=== PATIENT | female | born 1940 | race Caucasian/White ===

== ENCOUNTER 2017-07-28 11:34 | Inpatient (IN) | payer MEDICARE ==
--- NOTE | 2017-07-28 13:33 | RAD ---
HISTORY: Subacute trauma, low back pain COMPARISONS: None TECHNIQUE: Multiple contiguous axial CT scans were obtained of the lumbar spine without intravenous contrast, with coronal and sagittal multiplanar reformations. FINDINGS: SPINAL CANAL: Evaluation of the central canal is limited on CT technique; however, there is no obvious canalicular mass or epidural hemorrhage. ALIGNMENT: The alignment is normal. VERTEBRAL BODIES: There is diffuse osteopenia. Is multilevel anterolateral marginal osteophyte formation. The vertebral bodies are preserved in height. There is a nonspecific fracture through the left sacral ala extending to the SI joint. There is accessory above L1 on the right. JOINTS: There is diffuse facet osteoarthritis. MUSCULATURE: There is fatty atrophy of the inferior extent of the multifidus and erector spinae muscles. INTERVERTEBRAL DISCS: There is diffuse loss of intervertebral disc height throughout the spine. AXIAL IMAGES: T12-L1: There is no osseous neural foraminal narrowing or central canal stenosis. L1-L2: There is vacuum phenomenon consistent with a left lateral recess disc protrusion. There is no osseous neural foraminal area or central canal stenosis. L2-L3: There is no osseous neural foraminal narrowing or central canal stenosis. L3-L4: There is no osseous neural foraminal narrowing or central canal stenosis. L4-L5: There is no osseous neural foraminal narrowing or central canal stenosis. L5-S1: There is no osseous neural foraminal narrowing or central canal stenosis. SOFT TISSUES: There is atherosclerosis of the abdominal aorta OTHER: None IMPRESSION: 1. OSTEOPENIA. 2. DEGENERATIVE DISC DISEASE AND OSTEOARTHRITIS. 3. THERE IS A NONDISPLACED FRACTURE OF THE LEFT SACRAL ALA EXTENDING TO THE SI JOINT.
--- NOTE | 2017-07-28 13:38 | RAD ---
HISTORY: Subacute trauma, pain COMPARISONS: CT of the lumbar spine dated July 28, 2017 TECHNIQUE: Multiple contiguous axial CT images are obtained of the pelvis, with coronal and sagittal multiplanar reconstructions, without intravenous contrast administration. FINDINGS: BONE DENSITY: There is diffuse osteopenia. BONES: There is a nondisplaced fracture of the left sacral ala extending to the SI joint. There is are comminuted fractures of the left parasymphyseal inferior and superior pubic rami . Additionally, on axial image 88, there is a small focus of sclerosis with periosteal reaction noted along the left ischium. JOINTS: There is osteoarthritis of the hips and SI joints bilaterally. MUSCULATURE: There is dystrophic calcification within the left obturator externus muscle and pectineus muscle ALIGNMENT: There is no dislocation. SOFT TISSUES: Unremarkable. OTHER FINDINGS: None. IMPRESSION: 1. OSTEOPENIA. 2. COMMINUTED PARASYMPHYSEAL FRACTURES OF THE LEFT SUPERIOR AND INFERIOR PUBIC RAMI. 3. NONDISPLACED FRACTURE OF THE LEFT SACRAL ALA EXTENDING TO THE SI JOINT. 4. DYSTROPHIC CALCIFICATION NOTED WITHIN THE PELVIC MUSCULATURE WHICH MAY REFLECT THE SEQUELA OF PREVIOUS TRAUMA. 5. THERE IS A SMALL FOCUS OF SCLEROSIS WITH PERIOSTEAL REACTION ALONG THE LEFT ISCHIUM. WHILE THIS MAY REFLECT THE SEQUELA OF REMOTE TRAUMA, AN AGGRESSIVE LESION INCLUDING METASTATIC DISEASE OR PRIMARY OSSEOUS NEOPLASM IS ALSO WITHIN THE DIFFERENTIAL. RECOMMEND ATTENTION ON FOLLOW-UP IMAGING.
[2017-07-28 13:45] LABS: Hematocrit 35 % (35-47); Hemoglobin 11.8 g/dl (12.0-16.0); Mean Corpuscular HGB Conc 33 g/dl (31-36); Mean Corpuscular Hemoglobin 33 pg (27-31); Mean Corpuscular Volume 100 fL (80-97); Mean Platelet Volume 9 um3 (7.4-10.4); Red Blood Count 3.54 10^6/ul (4.0-5.4); Red Cell Distribution Width 16 % (10.5-15); White Blood Count 10.2 10^3/ul (3.5-10.8)
[2017-07-28 14:50] LABS: Albumin 3.2 g/dL (3.2-5.2); BUN/Creatinine Ratio 52.1 (8-20); C Reactive Protein 5.09 mg/L (< 5.00); Calcium 9.3 mg/dL (8.6-10.3); EGFR African American 56.7 (>60); EGFR Non-African American 44.1 (>60); Globulin 2.9 g/dL (2-4); Potassium 4.5 mmol/L (3.5-5.0); Total Bilirubin 0.7 mg/dL (0.2-1.0); Total Protein 6.1 g/dL (6.4-8.9)
[2017-07-28] MEDS ORDERED: NS 0.9% 1000 ML* 1,000 ML IV ONE (14:55)
[2017-07-28] MEDS ORDERED: Ondansetron INJ* 2 MG/ML VIAL IV ONE (14:55)
[2017-07-28] MEDS ORDERED: HYDROmorphone INJ* 1 MG/ML CARPUJECT SYRINGE IV ONE (14:55)
--- NOTE | 2017-07-28 18:49 | ED ---
Luisa Castro Thomas, scribed for Eloy Carroll MD on 07/28/17 at 1240 . Lower Extremity - HPI Summary HPI Summary: The patient is a 77 y/o F presenting to the ED c/o L hip pain s/p a fall that occurred last night as she was getting up to go to the bathroom. She rates her pain 9/10. The pain is aggravated by rotation and palpation. It is alleviated by nothing. The pain radiates down her left leg and up her back. She has not treated the pain with anything [employer]. On 06/21/17, the patient fell and sustained a pelvic fracture and a left shoulder fracture. After this fall, she was put on Percocet for the pain. The patient is from [place], and 10 days ago the patient fell four times in the span of a 24-hour period leading up to leaving for [facility] on an airplane. At the time of the fall 10 days ago, she was still taking Percocet. After her fall 10 days ago, she stopped taking Percocet because she was concerned that it was increasing the likelihood of a fall. However, she started taking Percocet again last night and she fell again. Per her son, over the last five days the patient has become weaker and more dehydrated. She is on a blood thinner. PMHx: A-Fib, peripheral neuropathy. PHx: partial hysterectomy, hand surgery, arm surgery. SHx: former smoker (ages [age]) , occasional alcohol use, no illicit drug use. She is accompanied by her son, Zackery. 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 Mechanism Of Injury: Fall From A Standing Position Onset of Pain: Immediate Onset/Duration: Days - fall yesterday night Severity Currently: Severe Pain Intensity: 9 Pain Scale Used: 0-10 Numeric Timing: Constant Location: Is Discrete @ - L hip Associated Signs And Symptoms: Positive: Weakness, Other - POS: L hip pain, frequent falls in the last two months, weakness, dehydration Aggravating Factor(s): Movement, Other - Rotation Alleviating Factor(s): Nothing Related History: Other - Frequent falls in the last month - Allergies/Home Medications Allergies/Adverse Reactions: Allergies Allergy/AdvReac Type Severity Reaction Status Date / Time Sulfa Antibiotics Allergy Rash Verified 07/28/17 12:02 Home Medications: Home Medications Apixaban* [Eliquis*] 5 mg PO BID 07/28/17 [History Confirmed 07/28/17] Artificial Tear Solution [Soothe Xp/Xtra Protection] 1 drop BOTH EYES BID PRN [History Confirmed 07/28/17] Atorvastatin* [Lipitor*] 10 mg PO DAILY 07/28/17 [History Confirmed 07/28/17] Betamethasone Kailyn 0.1% CM(NF) [Valisone 0.1% CM(NF)] 1 applic TOPICAL TID [History Confirmed 07/28/17] Budesonide [Uceris] 9 mg PO DAILY 07/28/17 [History Confirmed 07/28/17] Calcium Carbonate-Vitamin D [Calcium 500/Vitamin D] 1 tab PO DAILY 07/28/17 [ History Confirmed 07/28/17] Cyclosporine 0.05% OPHTH (NF) [Restasis 0.05% OPHTH] 1 drop BOTH EYES BID [History Confirmed 07/28/17] Digoxin TAB* [Lanoxin TAB*] 0.25 mg PO DAILY 07/28/17 [History Confirmed ] Furosemide TAB* [Lasix TAB*] 20 mg PO DAILY 07/28/17 [History Confirmed 07/28/17 ] Gabapentin TAB(NF) [Neurontin 600 mg TAB(NF)] 600 mg PO TID 07/28/17 [History Confirmed 07/28/17] Immune Globuln 10%-5GM*(PRIVI) [Privigen 10% - 5GM*] 5 grams IV Q3M 07/28/17 [ History Confirmed 07/28/17] Lisinopril TAB* [Prinivil TAB*] 10 mg PO DAILY 07/28/17 [History Confirmed 07/28] Mesalamine (NF) [Lialda (NF)] 2.4 gm PO BID 07/28/17 [History Confirmed 07/28/17 ] Nebivolol (NF) [Bystolic (NF)] 10 mg PO DAILY 07/28/17 [History Confirmed ] Onabotulinimtoxina 100 UNITS* [Botox 100 UNITS*] 100 units INJ Q3M 07/28/17 [ History Confirmed 07/28/17] Spironolactone TAB* [Aldactone TAB*] 25 mg PO DAILY 07/28/17 [History Confirmed 07/28/17] predniSONE TAB* [Deltasone TAB*] 20 mg PO DAILY 07/28/17 [History Confirmed ] traMADol TAB* [Ultram*] 50 - 100 mg PO Q4HR PRN 07/28/17 [History Confirmed ] PMH/Surg Hx/FS Hx/Imm Hx Previously Healthy: No Cardiovascular History: Reports: Hx Atrial Fibrillation Neurological History: Reports: Hx Peripheral Neuropathy - Surgical History Surgery Procedure, Year, and Place: partial hysterectomy, arm and hand surgery Infectious Disease History: No Infectious Disease History: Denies: Traveled Outside the [place] in Last 30 Days - Family History Known Family History: Positive: Hypertension - Social History Alcohol Use: Occasionally Substance Use Type: Reports: None Smoking Status (MU): Former Smoker Review of Systems Positive: Other - POS: dehydration. Negative: Fever Positive: Other - POS: L hip pain Neurological: Other - POS: frequent falls in the last couple months Positive: Weakness All Other Systems Reviewed And Are Negative: Yes Physical Exam Triage Information Reviewed: Yes Vital Signs On Initial Exam: Initial Vitals Temp Pulse Resp BP Pulse Ox 97 F 74 17 93/52 96 07/28/17 11:54 07/28/17 11:54 07/28/17 11:54 07/28/17 11:54 07/28/17 11:54 Vital Signs Reviewed: Yes Appearance: Positive: Well-Appearing, No Pain Distress Skin: Positive: Warm, Skin Color Reflects Adequate Perfusion, Dry Head/Face: Positive: Normal Head/Face Inspection Eyes: Positive: Normal ENT: Positive: Normal ENT inspection Neck: Positive: Supple, Nontender Respiratory/Lung Sounds: Positive: Clear to Auscultation, Breath Sounds Present Cardiovascular: Positive: RRR Abdomen Description: Positive: Nontender, Soft Bowel Sounds: Positive: Present Musculoskeletal: Positive: Normal, Other - She is tender to the left sciatic area and the left lower lumbar area. She is mildly tender to ROM of the left hip. Neurological: Positive: Normal Psychiatric: Positive: Normal, Affect/Mood Appropriate - [place] Coma Scale Coma Scale Total: 15 Diagnostics - Vital Signs Vital Signs Temp Pulse Resp BP Pulse Ox 07/28/17 12:11 98.2 F 78 19 121/75 97 07/28/17 11:54 97 F 74 17 93/52 96 - Laboratory Lab Results: Lab Results 07/28/17 07/28/17 07/28/17 Range/Units 13:34 13:34 13:34 WBC 10.2 (3.5-10.8) 10^3/ul RBC 3.54 L (4.0-5.4) 10^6/ul Hgb 11.8 L (12.0-16.0) g/dl Hct 35 (35-47) % MCV 100 H (80-97) fL MCH 33 H (27-31) pg MCHC 33 (31-36) g/dl RDW 16 H (10.5-15) % Plt Count 191 (150-450) 10^3/ul MPV 9 (7.4-10.4) um3 Neut % (Auto) 95.0 H (38-83) % Lymph % (Auto) 2.0 L (25-47) % [facility] % (Auto) 2.7 (1-9) % Eos % (Auto) 0 (0-6) % Baso % (Auto) 0.3 (0-2) % Absolute Neuts (auto) 9.7 H (1.5-7.7) 10^3/ul Absolute Lymphs (auto) 0.2 L (1.0-4.8) 10^3/ul Absolute Monos (auto) 0.3 (0-0.8) 10^3/ul Absolute Eos (auto) 0 (0-0.6) 10^3/ul Absolute Basos (auto) 0 (0-0.2) 10^3/ul Absolute Nucleated RBC 0.02 10^3/ul Nucleated RBC % 0.2 INR (Anticoag Therapy) 1.22 H (0.89-1.11) Sodium 140 (133-145) mmol/L Potassium 4.5 (3.5-5.0) mmol/L Chloride 112 H (101-111) mmol/L Carbon Dioxide 18 L (22-32) mmol/L Anion Gap 10 (2-11) mmol/L BUN 62 H (6-24) mg/dL Creatinine 1.19 H (0.51-0.95) mg/dL Est GFR ( Amer) 56.7 (>60) Est GFR (Non-Af Amer) 44.1 (>60) BUN/Creatinine Ratio 52.1 H (8-20) Glucose 153 H (70-100) mg/dL Calcium 9.3 (8.6-10.3) mg/dL Total Bilirubin 0.70 (0.2-1.0) mg/dL AST 59 H (13-39) U/L ALT 54 H (7-52) U/L Alkaline Phosphatase 318 H (34-104) U/L C-Reactive Protein 5.09 H (< 5.00) mg/L Total Protein 6.1 L (6.4-8.9) g/dL Albumin 3.2 (3.2-5.2) g/dL Globulin 2.9 (2-4) g/dL Albumin/Globulin Ratio 1.1 (1-3) Result Diagrams: 07/28/17 13:34 07/28/17 13:34 Lab Statement: Any lab studies that have been ordered have been reviewed, and results considered in the medical decision making process. - CT CT L-Spine CT Interpretation: Positive (See Comments) - 1. OSTEOPENIA. 2. DEGENERATIVE DISC DISEASE AND OSTEOARTHRITIS. 3. THERE IS A NONDISPLACED FRACTURE OF THE LEFT SACRAL ALA EXTENDING TO THE SI JOINT. ED Physician has reviewed this report and agrees. CT Interpretation Completed By: Radiologist CT Pelvis CT Interpretation: Positive (See Comments) - 1. OSTEOPENIA. 2. COMMINUTED PARASYMPHYSEAL FRACTURES OF THE LEFT SUPERIOR AND INFERIOR PUBIC RAMI. 3. NONDISPLACED FRACTURE OF THE LEFT SACRAL ALA EXTENDING TO THE SI JOINT. 4. DYSTROPHIC CALCIFICATION NOTED WITHIN THE PELVIC MUSCULATURE WHICH MAY REFLECT THE SEQUELA OF PREVIOUS TRAUMA. 5. THERE IS A SMALL FOCUS OF SCLEROSIS WITH PERIOSTEAL REACTION ALONG THE LEFT ISCHIUM. WHILE THIS MAY REFLECT THE SEQUELA OF REMOTE TRAUMA, AN AGGRESSIVE LESION INCLUDING METASTATIC DISEASE OR PRIMARY OSSEOUS NEOPLASM IS ALSO WITHIN THE DIFFERENTIAL. RECOMMEND ATTENTION ON FOLLOW- UP IMAGING. ED Physician has reviewed this report and agrees. CT Interpretation Completed By: Radiologist Lower Extremity Course/Dx - Course Course Of Treatment: Ms. Edmondson presented C/O severe left hip/back pain and inability to take care of herself. She has fallen a lot recently and has a known pelvic fracture. She is staying with her son as a refugee from [place]. She clearly has extensive pelvic fractures as well as severe dehydration. She is being admitted by the hospitalist with an ortho consult. - Diagnoses Provider Diagnoses: Severe dehydration, Pelvic ring fracture - Physician Notifications Discussed Care Of Patient With: Obdulia Sahni Time Discussed With Above Provider: 15:51 Instructed by Provider To: Other - I consulted with Dr. Sahni, hospitalist, who admits the patient at 15:51 Discharge - Discharge Plan Condition: Fair Disposition: ADMITTED TO [facility] documentation as recorded by the Luisa scott Thomas accurately reflects the service I personally performed and the decisions made by me, Eloy Carroll MD.
[2017-07-28] MEDS: Apixaban* 5 MG TAB PO SCH (21:26)
[2017-07-28] MEDS: Gabapentin CAP(*) 300 MG PO SCH (21:26)
[2017-07-28] MEDS: Mesalamine (NF) 1.2 GM TAB PO SCH (21:27)
[2017-07-28] MEDS: Morphine INJ* 2 MG/ML 1 ML SYRINGE (TWO MG - NEW SYRINGE VERSION) IV PRN ×2 (21:27→23:38)
[2017-07-28] MEDS: Nystatin TOP POWDER* 15 GM BTL TOPICAL SCH (22:24)
--- NOTE | 2017-07-29 00:48 | HP ---
CC: Oumar Prince MD * HISTORY AND PHYSICAL: DATE OF ADMISSION: 07/28/17 PRIMARY CARE PHYSICIAN: Oumar Prince MD, [place], [place], fax number [phone], phone number [phone]. CHIEF COMPLAINT: Back pain. HISTORY OF PRESENT ILLNESS: The patient is a 77-year-old woman who recently traveled here from [place] to avoid [place] and be with her son and apparently fell on 06/21/17 fracturing her pelvis. She was getting out of her car to go to the [employer] shop when her glasses became fogged up and she could not see and she tripped and fell. She had no chest pain, shortness of breath, dizziness, or other inciting factors. She never lost consciousness. She had to lay down until somebody came and helped her. She did not go to the hospital or the doctor because she was able to ambulate. She waited 2 weeks but the pain became so significant that she finally went to the doctor on 07/01/17. X- ray showed no evidence of fractures. So, she went on her way. She received Percocet for the pain, but her legs became rubbery and she fell more frequently. She went back on 07/09/17, had an MRI and it was found that she did have a pelvic fracture. Apparently, according to the patient, the doctor offered her admission her admission, but she declined. She did not have physical therapy, but continued on pain medications. Then, [place] was coming and she came to [facility] to stay with her son who lives in the [facility]. Apparently, she fell 2 to 3 times before that also while taking her Percocet. Again, there was concern her legs felt rubbery, but she was not lightheaded. Apparently, she also fractured her right shoulder at that time. She stayed with her son, but has been unable to really ambulate or get around and has had significant pain to the point her son finally brought her in for further evaluations. PAST MEDICAL HISTORY: The patient has a past medical history significant for ulcerative colitis; atrial fibrillation, on Eliquis; peripheral neuropathy; hypertension; hyperlipidemia; deep wound infection on her right arm, which she states has resolved. PAST SURGICAL HISTORY: Consists of hysterectomy, back surgery, knee surgery, and hand surgery. MEDICATIONS: Her current medications include: 1. Artificial Tears 1 drop both eyes twice a day as needed. 2. Valisone 1 application 3 times a day. 3. Cyclosporine 0.05% ophthalmic solution drops twice daily. 4. Immunoglobulin IV 5 g IVq.3 months for her peripheral neuropathy. 5. Tramadol 50 mg every 12 hours as needed for pain. 6. Lisinopril 10 mg daily. 6. Budesonide 9 mg daily as needed. 7. Spironolactone 25 mg daily. 8. Digoxin 0.25 mg daily. 9. Prednisone 20 mg daily. 10. Furosemide 20 mg daily. 11. Mesalamine 2.4 g twice daily. 12. Calcium carbonate with vitamin D 1 tablet daily. 13. Lipitor 10 mg daily. 14. Bystolic 10 mg daily. 15. Eliquis 5 mg twice daily. 16. Botox 100 units injected q.3 months. 17. Gabapentin 600 mg 3 times a day. ALLERGIES: She has an allergy/adverse reaction to SULFA DRUGS. FAMILY HISTORY: Mother at 85 of multiple myeloma. Father at 85 of CVA. SOCIAL HISTORY: No tobacco. Rare alcohol. No recreational drug use. She is a homemaker. She is a . She has 2 sons. Her son, Zackery Magana, phone number [phone], is her healthcare proxy. REVIEW OF SYSTEMS: A 14-point review of systems was completed with the patient. All pertinent positives and negatives are in the history of present illness, otherwise it is negative. PHYSICAL EXAMINATION GENERAL: A pleasant woman, lying in bed, in no acute distress. VITAL SIGNS: Temperature 98.2 degrees, heart rate 70 beats per minute, respiratory rate 19 breaths per minute, pulse ox 97%, and blood pressure 120/75. HEENT: Normocephalic, atraumatic. Pupils equal, round, reactive to light. Moist mucous membranes. NECK: Supple. No JVD, bruits, palpable thyroid, or lymphadenopathy. CHEST: Clear to auscultation and percussion bilaterally. CARDIOVASCULAR: S1, S2 appreciated. Regular rate and rhythm. No murmurs, gallops, or rubs. ABDOMEN: Positive bowel sounds in all 4 quadrants. Soft, nontender, nondistended. No hepatosplenomegaly. EXTREMITIES: No cyanosis or clubbing. She has got minimal bilateral edema. She has got ecchymosis on both arms and legs. NEURO: She is alert and oriented x3. She moves all extremities. SKIN: She does have cushingoid features on her face and she has some edema in her lower extremities and the ecchymosis is noted, but no other abnormalities. LABORATORY DATA/DIAGNOSTIC STUDIES: Sodium 140, potassium 4.5, chloride 112, CO2 18, BUN 62, creatinine 1.19, glucose is 153. CRP 5.09. White count 7.2, hemoglobin 11.8, hematocrit 35, and platelets 191. INR is 1.22. Lumbar spine CT shows osteopenia, degenerative disk disease, and osteoarthritis. There is nondisplaced fracture of the left sacral ala extending to the SI joint. Pelvic CT shows osteopenic comminuted parasymphyseal fracture fractures of the left superior and inferior pubic rami, nondisplaced fracture of the left sacral ala extending to the SI joint, dystrophic calcification noted within the pelvic musculature, which may reflect the sequelae of the previous trauma. There is a small focus of sclerosis with periosteal along the left ischium. While this may reflect the sequelae of remote trauma, an aggressive lesion including metastatic disease or primary osseous neoplasm is also on the differential. Recommended attention on followup imaging. ASSESSMENT AND PLAN: 1. Pelvic fracture: We will get Physical and Occupational Therapy. We will get orthopedist's input, although it is unlikely she would require any surgery. Pain management with morphine p.r.n. I suspect the patient would benefit from some short-term rehab either in or outpatient. I will await physical therapy's input regarding the same. 2. Atrial fibrillation. The patient will continue on Eliquis. Heart rate is adequately controlled. It should be noted the patient is not sure if she is always compliant with twice a day regimen. So consideration to switching over to Xarelto may be reasonable at this point. 3. Ulcerative colitis. Continue current regimen. No evidence of flare at this time. 4. Peripheral neuropathy. Continue gabapentin, IVIG every 3 months. 5. Tremor. On evaluation of the patient, she has significant tremors in both of her hands and her head. She said she was worked up for Parkinson's and is negative for that, but she is not sure what it is at this point. She has seen 2 neurologists. It could be essential tremor and she could benefit from a beta - belinda. Please note she is already on Bystolic. Propranolol would be a better medication for it. I would advise while she is here to see Neurology and I have discussed this with the son. 6. Long-term use of prednisone: The patient states she was on it for poison lurdes and since they worked well, her doctor kept her on it for 3 months. I find this unlikely and think we need to get more medical records from her physician to see at this time. For now, we will slowly taper her off it giving her 20 mg for 1 week, then 10 mg for 1 week, then 5 mg for 1 week. This should give us time to get the records and see if tapering is appropriate or if she is on it for some reason we are not aware of. 7. FEN: Regular diet. 8. DVT prophylaxis: She is on Eliquis. 9. The patient is a full code. TIME SPENT: Over 85 minutes were spent on this H and P, more than 45 minutes of which was spent in direct [id number] contact with the patient in evaluation , physical exam, counseling, and coordination of care. [id number]/CPS #: [id number] MTDD
--- NOTE | 2017-07-29 06:50 | PN ---
Progress Note - Progress Note Date of Service: 07/29/17 Note: Full note dictated. Left sacral ala and rami fractures. Area of periosteal reaction noted at tip of ischium. Recommed standing AP/inlet/outlet pelvis xrays later today to document stability of pelvic ring. Can follow up in my office in 2 weeks if still in town. No further orthopedic intervention needed. Recommend repeat imaging of pelvis in 3-6 months for area of periosteal reaction in left ischium to check for any changes. This can be done if [place].
[2017-07-29] MEDS: BUDESONIDE 9 MG PO SCH (08:34)
[2017-07-29] MEDS: Mesalamine (NF) 1.2 GM TAB PO SCH (08:35)
[2017-07-29] MEDS: Atorvastatin* 10 MG TAB PO SCH (08:39)
[2017-07-29] MEDS: Gabapentin CAP(*) 300 MG PO SCH ×3 (08:39→21:19)
[2017-07-29] MEDS: Furosemide TAB* 20 MG PO SCH (08:40)
[2017-07-29] MEDS: Calcium/Vitamin D TAB 250/125* TAB PO SCH (08:40)
[2017-07-29] MEDS: Spironolactone TAB* 25 MG PO SCH (08:41)
[2017-07-29] MEDS: Nystatin TOP POWDER* 15 GM BTL TOPICAL SCH ×3 (08:41→21:22)
[2017-07-29] MEDS: Apixaban* 5 MG TAB PO SCH ×2 (08:41→21:20)
[2017-07-29] MEDS: Lisinopril TAB* 10 MG PO SCH (08:41)
[2017-07-29] MEDS: predniSONE TAB* 20 MG PO SCH (08:41)
--- NOTE | 2017-07-29 08:43 | CONS ---
CONSULTATION REPORT: DATE OF CONSULT: 07/29/17 CHIEF COMPLAINT: Left buttock pain. HISTORY OF PRESENT ILLNESS: Linda is 77. She was here with her son from [place], escaping [place]. She had a fall, she tells me, roughly 2 weeks ago, when she was getting out of her car and her glasses fogged up and she fell outside the [employer] shop on to the pavement. Since then, she has had left buttock and low back pain. She has been able to get around with great difficulty with the use of a walker. She ultimately ended up coming to the emergency room yesterday when the pain did not go away and CT scans were performed that showed nondisplaced left sacral ala fracture and some r ami fractures on the left. She was admitted to the hospitalist service for pain control and I am se eing her this morning for orthopedic consultation. PAST MEDICAL HISTORY: History of AFib on Eliquis, ulcerative colitis, peripheral neuropathy, hypert ension, hyperlipidemia, previous wound infection in the right arm, also rotator cuff tear on the rig ht. PAST SURGICAL HISTORY: Hysterectomy, back surgery, knee surgery, hand surgery. HOME MEDICATIONS: Include: 1. Artificial tears. 2. Valisone. 3. Cyclosporine. 4. Immunoglobulin IV for peripheral neuropathy. 5. Tramadol. 6. Lisinopril. 7. Budesonide. 8. Spironolactone. 9. Digoxin. 10. Prednisone. 11. Furosemide. 12. Mesalamine. 13. Calcium carbonate. 14. Lipitor. 15. Bystolic. 16. Eliquis. 17. Botox. 18. Gabapentin. ALLERGIES: SULFA DRUGS. FAMILY HISTORY: Noncontributory. SOCIAL HISTORY: She lives in [place] with her son. She is here visiting her other son due to [place]. She is a . She does not smoke or use drugs. Rarely consumes alcohol. REVIEW OF SYSTEMS: Left buttock pain. Otherwise, a full review of systems was conducted and was ne gative except for the pain mentioned above. A full 14-system review of systems was conducted and wa s negative except for that mentioned above. She also has right shoulder pain and tells me she has a rotator cuff tear. PHYSICAL EXAM: Awake and alert, very pleasant, oriented to person and place. Vital Signs: 97.5, 84 , 17, blood pressure 142/86, satting 100% on room air. Musculoskeletal: A full secondary survey was conducted including clavicles, bilateral upper extremities, bilateral lower extremities and the pel vis. There is no pain with passive motion of either arms. There is no tenderness. There is no bru ising or swelling. No pain with passive motion of the lower extremities including log roll of both hips. There is no tenderness. She is a bit tender over the left posterior pelvis. Otherwise, the pelvic ring is largely nontender. The skin is intact. There is no atrophy, there is decent strengt h and no laxity. IMAGING: CT scan of the pelvis was reviewed. There is a nondisplaced left sacral ala fracture and some rami fractures. There is a bit of calcification anterior to the left pubic ramus. There is a bone island in the left ischium and there was a bit of periosteal reaction just to the tip of the le ft ischium. IMPRESSION: Stable pelvic ring fractures including a left sacral ala fracture and some rami fractur es. PLAN: She is admitted to the hospitalist service for pain control. There is no further interventio n needed for her pelvis. Later today, we will get some standing pelvis views including an AP, inlet and outlet just to definitively show the stability of the pelvis. Otherwise, it will just take mike e for this to become less painful. For the area of periosteal reaction mentioned in the CT report, I would recommend a repeat CT scan, which can be done in [place] in 3 to 6 months just to document n o change. Otherwise, I would not recommend any further intervention or biopsy for that at the curre nt time. Assuming the standing pelvis films are negative for any instability, I would plan to treat this with early mobilization as tolerated and the pain will subside with time. She can follow up w dl preston in my office in 2 weeks for repeat pelvis x-rays. [id number]/[facility] #: [id number]
[2017-07-29] MEDS ORDERED: predniSONE TAB* 20 MG PO SCH ×3 (09:00)
[2017-07-29] MEDS ORDERED: NEBIVOLOL 10 MG PO SCH (09:00)
[2017-07-29] MEDS: Morphine INJ* 2 MG/ML 1 ML SYRINGE (TWO MG - NEW SYRINGE VERSION) IV PRN ×3 (11:29→21:35)
--- NOTE | 2017-07-29 14:54 | PN ---
Subjective Date of Service: 07/29/17 Interval History: Patient feels better but feels she cannot go home. She admits she she let her pain get out of control. Objective Active Medications: Apixaban (Eliquis*) 5 mg PO BID [facility] Last Admin: 07/29/17 08:41 Dose: 5 mg Atorvastatin Calcium (Lipitor*) 10 mg PO DAILY [facility] Last Admin: 07/29/17 08:39 Dose: 10 mg Calcium/Vitamin D (Oscal D Tab 250/125*) 1 tab PO DAILY [facility] Last Admin: 07/29/17 08:40 Dose: 1 tab Digoxin (Lanoxin Tab*) 0.25 mg PO DAILY@1700 [facility] Furosemide (Lasix Tab*) 20 mg PO DAILY [facility] Last Admin: 07/29/17 08:40 Dose: 20 mg Gabapentin (Neurontin Cap(*)) 600 mg PO TID [facility] Last Admin: 07/29/17 08:39 Dose: 600 mg Lisinopril (Prinivil Tab*) 10 mg PO DAILY [facility] Last Admin: 07/29/17 08:41 Dose: 10 mg Mesalamine (Lialda (Nf)) 2.4 gm PO BID [facility] Last Admin: 07/29/17 08:35 Dose: Not Given Morphine Sulfate (Morphine Inj (Syringe)*) 2 mg IV Q2H PRN PRN Reason: PAIN Last Admin: 07/29/17 11:29 Dose: 2 mg Nebivolol (Bystolic (Nf)) 10 mg PO DAILY [facility] Last Admin: 07/29/17 08:44 Dose: Not Given Pto - Budesonide [ (Uceris] 9 Mg) 9 mg PO DAILY [facility] Last Admin: 07/29/17 08:34 Dose: Not Given Nystatin (Nystatin Top Powder*) 1 applic TOPICAL TID [facility] Last Admin: 07/29/17 08:41 Dose: 1 applic Prednisone (Deltasone Tab*) 20 mg PO DAILY [facility] Stop: 08/04/17 09:01 Last Admin: 07/29/17 08:41 Dose: 20 mg Prednisone (Deltasone Tab*) 10 mg PO DAILY [facility] Stop: 08/11/17 09:01 Prednisone (Deltasone Tab*) 5 mg PO DAILY [facility] Stop: 08/18/17 09:01 Spironolactone (Aldactone Tab*) 25 mg PO DAILY [facility] Last Admin: 07/29/17 08:41 Dose: 25 mg Tramadol HCl (Ultram*) 50 mg PO Q4HR PRN PRN Reason: PAIN Vital Signs 07/28/17 07/28/17 07/28/17 16:32 18:22 18:23 Temperature 98.2 F 98.2 F Pulse Rate 89 89 Respiratory 14 14 14 Rate Blood Pressure 152/89 152/89 (mmHg) O2 Sat by Pulse 99 99 Oximetry 07/28/17 07/28/17 07/28/17 19:59 21:26 21:27 Temperature 97.5 F Pulse Rate 82 Respiratory 20 16 16 Rate Blood Pressure 110/56 (mmHg) O2 Sat by Pulse 100 Oximetry 07/28/17 07/28/17 07/28/17 22:27 23:19 23:38 Temperature 98.3 F Pulse Rate 82 Respiratory 16 17 16 Rate Blood Pressure 130/55 (mmHg) O2 Sat by Pulse 97 Oximetry 07/29/17 07/29/17 07/29/17 00:38 03:18 03:35 Temperature 97.5 F Pulse Rate 84 Respiratory 14 17 Rate Blood Pressure 142/86 (mmHg) O2 Sat by Pulse 100 Oximetry 07/29/17 07/29/17 07/29/17 07:29 08:39 08:59 Temperature 98.2 F Pulse Rate 82 Respiratory 18 18 20 Rate Blood Pressure 146/87 (mmHg) O2 Sat by Pulse 100 Oximetry 07/29/17 07/29/17 07/29/17 10:39 11:29 12:29 Temperature Pulse Rate Respiratory 18 20 22 Rate Blood Pressure (mmHg) O2 Sat by Pulse Oximetry 07/29/17 12:46 Temperature 97.9 F Pulse Rate 95 Respiratory Rate Blood Pressure 127/60 (mmHg) O2 Sat by Pulse 95 Oximetry Oxygen Devices in Use Now: None Appearance: Elderly woman lying in bed in NAD Eyes: No Scleral Icterus Ears/Nose/Mouth/Throat: Clear Oropharnyx Neck: NL Appearance and Movements; NL JVP, No Thyroid Enlargement, Masses Respiratory: Clear to Auscultation Cardiovascular: - - S1S2 gordo Abdominal: NL Sounds; No Tenderness; No Distention, No Hepatosplenomegaly Lymphatic: No Cervical Adenopathy Extremities: No Edema Skin: No Rash or Ulcers Neurological: Alert and Oriented x 3 Result Diagrams: 07/28/17 13:34 07/28/17 13:34 Additional Lab and Data: Lab Results 07/28/17 07/28/17 07/28/17 Range/Units 13:34 13:34 13:34 WBC 10.2 (3.5-10.8) 10^3/ul RBC 3.54 L (4.0-5.4) 10^6/ul Hgb 11.8 L (12.0-16.0) g/dl Hct 35 (35-47) % MCV 100 H (80-97) fL MCH 33 H (27-31) pg MCHC 33 (31-36) g/dl RDW 16 H (10.5-15) % Plt Count 191 (150-450) 10^3/ul MPV 9 (7.4-10.4) um3 Neut % (Auto) 95.0 H (38-83) % Lymph % (Auto) 2.0 L (25-47) % Willacy % (Auto) 2.7 (1-9) % Eos % (Auto) 0 (0-6) % Baso % (Auto) 0.3 (0-2) % Absolute Neuts (auto) 9.7 H (1.5-7.7) 10^3/ul Absolute Lymphs (auto) 0.2 L (1.0-4.8) 10^3/ul Absolute Monos (auto) 0.3 (0-0.8) 10^3/ul Absolute Eos (auto) 0 (0-0.6) 10^3/ul Absolute Basos (auto) 0 (0-0.2) 10^3/ul Absolute Nucleated RBC 0.02 10^3/ul Nucleated RBC % 0.2 INR (Anticoag Therapy) 1.22 H (0.89-1.11) Sodium 140 (133-145) mmol/L Potassium 4.5 (3.5-5.0) mmol/L Chloride 112 H (101-111) mmol/L Carbon Dioxide 18 L (22-32) mmol/L Anion Gap 10 (2-11) mmol/L BUN 62 H (6-24) mg/dL Creatinine 1.19 H (0.51-0.95) mg/dL Est GFR ( Amer) 56.7 (>60) Est GFR (Non-Af Amer) 44.1 (>60) BUN/Creatinine Ratio 52.1 H (8-20) Glucose 153 H (70-100) mg/dL Calcium 9.3 (8.6-10.3) mg/dL Total Bilirubin 0.70 (0.2-1.0) mg/dL AST 59 H (13-39) U/L ALT 54 H (7-52) U/L Alkaline Phosphatase 318 H (34-104) U/L C-Reactive Protein 5.09 H (< 5.00) mg/L Total Protein 6.1 L (6.4-8.9) g/dL Albumin 3.2 (3.2-5.2) g/dL Globulin 2.9 (2-4) g/dL Albumin/Globulin Ratio 1.1 (1-3) Assess/Plan/Problems-Billing Assessment: 77 year old woman with pelvic fracture one month ago who has had recurrent falls and admitted for pain control and PT. - Patient Problems (1) Pelvic fracture Current Visit: Yes Status: Acute Code(s): S32.9XXA - FRACTURE OF UNSP PARTS OF LUMBOSACRAL SPINE AND PELVIS, INIT SNOMED Code(s): 07134249 Comment: Appreciate PT and ortho input. Continue morphine prn. Still intractable pain and requiring PT (2) Atrial fibrillation Current Visit: Yes Status: Acute Code(s): I48.91 - UNSPECIFIED ATRIAL FIBRILLATION SNOMED Code(s): 04093742 Comment: On Eliquis. May want to go to [facility] for once a day dosing. Rate controlled. (3) Ulcerative colitis Current Visit: Yes Status: Acute Code(s): K51.90 - ULCERATIVE COLITIS, UNSPECIFIED, WITHOUT COMPLICATIONS SNOMED Code(s): 74875752 Comment: No flares. On Mesalamine. (4) Peripheral neuropathy Current Visit: Yes Status: Acute Code(s): G62.9 - POLYNEUROPATHY, UNSPECIFIED SNOMED Code(s): 823527337 Comment: Stable. Continue Gabapentin (5) Tremor Current Visit: Yes Status: Acute Code(s): R25.1 - TREMOR, UNSPECIFIED SNOMED Code(s): 60774397 Comment: May benefit from Propranolol instead of Bystolic if Familial. (6) On prednisone therapy Current Visit: Yes Status: Acute Code(s): Z79.52 - DETENTION (CURRENT) USE OF SYSTEMIC STEROIDS SNOMED Code(s): 240264359 Comment: Slow taper off if really a prolonged treatment of poison lurdes (7) DVT prophylaxis Current Visit: Yes Status: Acute Code(s): WRP3334 - SNOMED Code(s): 713621195 Comment: Jon (8) Full code status Current Visit: Yes Status: Acute Code(s): Z78.9 - OTHER SPECIFIED HEALTH STATUS SNOMED Code(s): 122494860
[2017-07-29] MEDS: Digoxin TAB* 0.25 MG PO SCH (15:14)
[2017-07-29] MEDS: PTO: Mesalamine (NF) 1.2 GM TAB PO SCH (21:21)
[2017-07-29] MEDS: BETAMETHASONE VAL 0.1% TOPICAL SCH (21:22)
[2017-07-29] MEDS: CYCLOSPORINE 0.05% BOTH EYES SCH (21:25)
[2017-07-30 00:38] LABS: Urine Bacteria 3+ (Absent); Urine Bilirubin Negative (Negative); Urine Glucose Negative (Negative); Urine Nitrite Positive (Negative)
[2017-07-30] MEDS: Morphine INJ* 2 MG/ML 1 ML SYRINGE (TWO MG - NEW SYRINGE VERSION) IV PRN ×6 (06:06→21:05)
[2017-07-30] MEDS: CYCLOSPORINE 0.05% BOTH EYES SCH ×2 (08:09→21:16)
[2017-07-30] MEDS: BETAMETHASONE VAL 0.1% TOPICAL SCH ×3 (08:10→21:21)
[2017-07-30] MEDS: BUDESONIDE 9 MG PO SCH (08:11)
[2017-07-30] MEDS: PTO: Mesalamine (NF) 1.2 GM TAB PO SCH ×2 (08:11→21:14)
[2017-07-30] MEDS: Nystatin TOP POWDER* 15 GM BTL TOPICAL SCH ×3 (08:12→21:21)
[2017-07-30] MEDS: NEBIVOLOL 10 MG PO SCH (08:13)
[2017-07-30] MEDS: Lisinopril TAB* 10 MG PO SCH (08:14)
[2017-07-30] MEDS: Calcium/Vitamin D TAB 250/125* TAB PO SCH (08:14)
[2017-07-30] MEDS: Apixaban* 5 MG TAB PO SCH ×2 (08:14→21:25)
[2017-07-30] MEDS: Gabapentin CAP(*) 300 MG PO SCH ×3 (08:14→21:14)
[2017-07-30] MEDS: Atorvastatin* 10 MG TAB PO SCH (08:16)
[2017-07-30] MEDS: Spironolactone TAB* 25 MG PO SCH (08:16)
[2017-07-30] MEDS: predniSONE TAB* 20 MG PO SCH (08:16)
[2017-07-30] MEDS: Furosemide TAB* 20 MG PO SCH (08:16)
[2017-07-30] MEDS: traMADol TAB* 50 MG PO PRN (08:24)
--- NOTE | 2017-07-30 15:17 | PN ---
Subjective Date of Service: 07/30/17 Interval History: Patient without new complaints. Objective Active Medications: Apixaban (Eliquis*) 5 mg PO BID [facility] B[facility]S [facility] Last Admin: 07/30/17 08:14 Dose: 5 mg Atorvastatin Calcium (Lipitor*) 10 mg PO DAILY [facility] 234 BEDS [facility] Last Admin: 07/30/17 08:16 Dose: 10 mg Betamethasone Valerate (Valisone 0.1% Cm(Nf)) 1 applic TOPICAL TID [facility] 234 BEDS AT [facility] Last Admin: 07/30/17 13:54 Dose: 1 dose Calcium/Vitamin D (Oscal D Tab 250/125*) 1 tab PO DAILY [facility] 234 B[facility]S AT [facility] Last Admin: 07/30/17 08:14 Dose: 1 tab Cyclosporine (Restasis 0.05% Ophth) 1 drop BOTH EYES BID [facility] 234 BEDS AT [facility] PRN Reason: Protocol Last Admin: 07/30/17 08:09 Dose: 1 drop Digoxin (Lanoxin Tab*) 0.25 mg PO DAILY@1700 [facility] 234 BEDS AT [facility] Last Admin: 07/29/17 15:14 Dose: 0.25 mg Furosemide (Lasix Tab*) 20 mg PO DAILY [facility] 234 B[facility]S [facility] Last Admin: 07/30/17 08:16 Dose: 20 mg Gabapentin (Neurontin Cap(*)) 600 mg PO TID [facility] 234 B[facility]S [facility] Last Admin: 07/30/17 13:54 Dose: 600 mg Lisinopril (Prinivil Tab*) 10 mg PO DAILY [facility] 234 B[facility]S [facility] Last Admin: 07/30/17 08:14 Dose: 10 mg Mesalamine (Lialda (Nf)) 2.4 gm PO BID [facility] 234 B[facility]S [facility] Last Admin: 07/30/17 08:11 Dose: 2.4 gm Morphine Sulfate (Morphine Inj (Syringe)*) 1 mg IV Q2H PRN PRN Reason: PAIN Last Admin: 07/30/17 13:53 Dose: 1 mg Nebivolol (Bystolic (Nf)) 10 mg PO DAILY [facility] 234 BEDS AT [facility] Last Admin: 07/30/17 08:13 Dose: 10 mg Pto - Budesonide [ (Uceris] 9 Mg) 9 mg PO DAILY [facility] 234 BEDS [facility] Last Admin: 07/30/17 08:11 Dose: 9 mg Nystatin (Nystatin Top Powder*) 1 applic TOPICAL TID [facility]CLUDE 234 BEDS AT [facility] Last Admin: 07/30/17 13:54 Dose: 1 applic Prednisone (Deltasone Tab*) 20 mg PO DAILY [facility] 234 BEDS AT [facility] Stop: 08/04/17 09:01 Last Admin: 07/30/17 08:16 Dose: 20 mg Prednisone (Deltasone Tab*) 10 mg PO DAILY [facility] 234 BEDS AT [facility] Stop: 08/11/17 09:01 Prednisone (Deltasone Tab*) 5 mg PO DAILY [facility]CLUDE 234 BEDS AT [facility] Stop: 08/18/17 09:01 Spironolactone (Aldactone Tab*) 25 mg PO DAILY [facility] 234 BEDS [facility] Last Admin: 07/30/17 08:16 Dose: 25 mg Tramadol HCl (Ultram*) 50 mg PO Q4HR PRN PRN Reason: PAIN Last Admin: 07/30/17 08:24 Dose: 50 mg Vital Signs 07/29/17 07/29/17 07/29/17 15:13 15:14 15:15 Temperature Pulse Rate 95 Respiratory 20 20 Rate Blood Pressure (mmHg) O2 Sat by Pulse Oximetry 07/29/17 07/29/17 07/29/17 15:27 15:55 15:56 Temperature 97.8 F Pulse Rate 78 Respiratory 18 18 18 Rate Blood Pressure 141/62 (mmHg) O2 Sat by Pulse 98 Oximetry 07/29/17 07/29/17 07/29/17 20:06 21:19 21:35 Temperature 98.4 F Pulse Rate 69 Respiratory 18 16 16 Rate Blood Pressure 145/54 (mmHg) O2 Sat by Pulse 99 Oximetry 07/29/17 07/29/17 07/29/17 22:35 23:30 23:31 Temperature 98.2 F Pulse Rate 90 Respiratory 16 16 Rate Blood Pressure 172/90 (mmHg) O2 Sat by Pulse 98 Oximetry 07/30/17 07/30/17 07/30/17 04:17 04:29 06:06 Temperature 97.5 F Pulse Rate 79 Respiratory 16 18 Rate Blood Pressure 162/86 (mmHg) O2 Sat by Pulse 100 Oximetry 07/30/17 07/30/17 07/30/17 07:00 07:57 08:00 Temperature Pulse Rate 94 Respiratory 18 16 20 Rate Blood Pressure 147/88 (mmHg) O2 Sat by Pulse 99 Oximetry 07/30/17 07/30/17 07/30/17 08:14 08:24 08:33 Temperature Pulse Rate Respiratory 18 20 20 Rate Blood Pressure (mmHg) O2 Sat by Pulse Oximetry 07/30/17 07/30/17 07/30/17 09:09 10:09 10:14 Temperature Pulse Rate Respiratory 20 18 18 Rate Blood Pressure (mmHg) O2 Sat by Pulse Oximetry 07/30/17 07/30/17 07/30/17 10:24 11:40 13:53 Temperature 98.0 F Pulse Rate 70 Respiratory 18 14 18 Rate Blood Pressure 151/59 (mmHg) O2 Sat by Pulse 98 Oximetry 07/30/17 07/30/17 07/30/17 13:54 14:53 14:55 Temperature Pulse Rate Respiratory 18 20 20 Rate Blood Pressure (mmHg) O2 Sat by Pulse Oximetry Oxygen Devices in Use Now: None Appearance: Elderly woman lying in bed in NAD Eyes: No Scleral Icterus Ears/Nose/Mouth/Throat: Clear Oropharnyx Neck: No Thyroid Enlargement, Masses Respiratory: Clear to Auscultation Cardiovascular: - - S1S2 gordo Abdominal: NL Sounds; No Tenderness; No Distention, No Hepatosplenomegaly Lymphatic: No Cervical Adenopathy Extremities: No Clubbing, Cyanosis Skin: No Rash or Ulcers Neurological: Alert and Oriented x 3 Result Diagrams: 07/28/17 13:34 07/28/17 13:34 Additional Lab and Data: Lab Results 07/28/17 07/28/17 07/28/17 Range/Units 13:34 13:34 13:34 WBC 10.2 (3.5-10.8) 10^3/ul RBC 3.54 L (4.0-5.4) 10^6/ul Hgb 11.8 L (12.0-16.0) g/dl Hct 35 (35-47) % MCV 100 H (80-97) fL MCH 33 H (27-31) pg MCHC 33 (31-36) g/dl RDW 16 H (10.5-15) % Plt Count 191 (150-450) 10^3/ul MPV 9 (7.4-10.4) um3 Neut % (Auto) 95.0 H (38-83) % Lymph % (Auto) 2.0 L (25-47) % Patrick % (Auto) 2.7 (1-9) % Eos % (Auto) 0 (0-6) % Baso % (Auto) 0.3 (0-2) % Absolute Neuts (auto) 9.7 H (1.5-7.7) 10^3/ul Absolute Lymphs (auto) 0.2 L (1.0-4.8) 10^3/ul Absolute Monos (auto) 0.3 (0-0.8) 10^3/ul Absolute Eos (auto) 0 (0-0.6) 10^3/ul Absolute Basos (auto) 0 (0-0.2) 10^3/ul Absolute Nucleated RBC 0.02 10^3/ul Nucleated RBC % 0.2 INR (Anticoag Therapy) 1.22 H (0.89-1.11) Sodium 140 (133-145) mmol/L Potassium 4.5 (3.5-5.0) mmol/L Chloride 112 H (101-111) mmol/L Carbon Dioxide 18 L (22-32) mmol/L Anion Gap 10 (2-11) mmol/L BUN 62 H (6-24) mg/dL Creatinine 1.19 H (0.51-0.95) mg/dL Est GFR ( Amer) 56.7 (>60) Est GFR (Non-Af Amer) 44.1 (>60) BUN/Creatinine Ratio 52.1 H (8-20) Glucose 153 H (70-100) mg/dL Calcium 9.3 (8.6-10.3) mg/dL Total Bilirubin 0.70 (0.2-1.0) mg/dL AST 59 H (13-39) U/L ALT 54 H (7-52) U/L Alkaline Phosphatase 318 H (34-104) U/L C-Reactive Protein 5.09 H (< 5.00) mg/L Total Protein 6.1 L (6.4-8.9) g/dL Albumin 3.2 (3.2-5.2) g/dL Globulin 2.9 (2-4) g/dL Albumin/Globulin Ratio 1.1 (1-3) Assess/Plan/Problems-Billing Assessment: 77 year old woman with pelvic fracture one month ago who has had recurrent falls and admitted for pain control and PT. - Patient Problems (1) Pelvic fracture Current Visit: Yes Status: Acute Code(s): S32.9XXA - FRACTURE OF UNSP PARTS OF LUMBOSACRAL SPINE AND PELVIS, INIT SNOMED Code(s): 60241122 Comment: Appreciate PT and ortho input. Continue morphine prn. Pain is slightly better. May benefit from STR. (2) Atrial fibrillation Current Visit: Yes Status: Acute Code(s): I48.91 - UNSPECIFIED ATRIAL FIBRILLATION SNOMED Code(s): 51157215 Comment: On Eliquis. May want to go to [facility] for once a day dosing. Rate controlled. (3) Ulcerative colitis Current Visit: Yes Status: Acute Code(s): K51.90 - ULCERATIVE COLITIS, UNSPECIFIED, WITHOUT COMPLICATIONS SNOMED Code(s): 15089695 Comment: No flares. Stable. On Mesalamine. (4) Peripheral neuropathy Current Visit: Yes Status: Acute Code(s): G62.9 - POLYNEUROPATHY, UNSPECIFIED SNOMED Code(s): 077867501 Comment: Stable. Continue Gabapentin (5) Tremor Current Visit: Yes Status: Acute Code(s): R25.1 - TREMOR, UNSPECIFIED SNOMED Code(s): 02637942 Comment: May benefit from Propranolol instead of Bystolic if Familial. 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
[2017-07-30] MEDS: Digoxin TAB* 0.25 MG PO SCH (15:25)
[2017-07-31] MEDS: Morphine INJ* 2 MG/ML 1 ML SYRINGE (TWO MG - NEW SYRINGE VERSION) IV PRN ×3 (00:57→09:09)
[2017-07-31] MEDS: Lisinopril TAB* 10 MG PO SCH (08:47)
[2017-07-31] MEDS: Nystatin TOP POWDER* 15 GM BTL TOPICAL SCH ×3 (08:47→20:55)
[2017-07-31] MEDS: Gabapentin CAP(*) 300 MG PO SCH ×3 (08:50→20:52)
[2017-07-31] MEDS: Atorvastatin* 10 MG TAB PO SCH (08:50)
[2017-07-31] MEDS: predniSONE TAB* 20 MG PO SCH (08:50)
[2017-07-31] MEDS: NEBIVOLOL 10 MG PO SCH (08:51)
[2017-07-31] MEDS: Spironolactone TAB* 25 MG PO SCH (08:51)
[2017-07-31] MEDS: Calcium/Vitamin D TAB 250/125* TAB PO SCH (08:51)
[2017-07-31] MEDS: Furosemide TAB* 20 MG PO SCH (08:51)
[2017-07-31] MEDS: Apixaban* 5 MG TAB PO SCH ×2 (08:55→20:54)
[2017-07-31] MEDS: BUDESONIDE 9 MG PO SCH (08:57)
[2017-07-31] MEDS: CYCLOSPORINE 0.05% BOTH EYES SCH ×2 (09:10→20:53)
[2017-07-31] MEDS: BETAMETHASONE VAL 0.1% TOPICAL SCH ×4 (09:12→20:56)
[2017-07-31] MEDS: PTO: Mesalamine (NF) 1.2 GM TAB PO SCH ×2 (09:12→20:52)
[2017-07-31] MEDS ORDERED: cefTRIAXone VIAL(*) 1,000 MG in NS 0.9% 50 ML* 50 ML IVPB SCH (11:00)
[2017-07-31] MEDS: traMADol TAB* 50 MG PO PRN (11:05)
[2017-07-31] MEDS ORDERED: Morphine INJ* 4 MG/ML 1 ML CARPUJECT ONE (11:44)
[2017-07-31] MEDS: Morphine INJ* 4 MG/ML 1 ML CARPUJECT IV PRN ×4 (11:48→20:54)
--- NOTE | 2017-07-31 12:29 | RAD ---
Indication: Pelvic fracture. AP, inlet and outlet view of the pelvis demonstrates fractures of left superior and inferior pubic ramus. Overall appearance appears to be unchanged from previous exam with diffuse osteopenia. No definite progression is noted. IMPRESSION: Fractures of left superior and inferior pubic ramus at the pubic symphysis.
[2017-07-31] MEDS: Digoxin TAB* 0.25 MG PO SCH (17:12)
--- NOTE | 2017-07-31 17:23 | PN ---
Subjective Date of Service: 07/31/17 Interval History: Patient has no new complaints overnight. No CP/SOB, N/V, fevers, chills, dysuria , frequency of urination, Abdominal pain, or back pain. Family History: Unchanged from Admission Social History: Unchanged from Admission Past Medical History: Unchanged from Admission Objective Active Medications: Apixaban (Eliquis*) 5 mg PO BID [facility] Last Admin: 07/31/17 08:55 Dose: 5 mg Atorvastatin Calcium (Lipitor*) 10 mg PO DAILY [facility] Last Admin: 07/31/17 08:50 Dose: 10 mg Betamethasone Valerate (Valisone 0.1% Cm(Nf)) 1 applic TOPICAL TID [facility] Last Admin: 07/31/17 15:13 Dose: 1 applic Calcium/Vitamin D (Oscal D Tab 250/125*) 1 tab PO DAILY [facility] Last Admin: 07/31/17 08:51 Dose: 1 tab Cyclosporine (Restasis 0.05% Ophth) 1 drop BOTH EYES BID [facility] PRN Reason: Protocol Last Admin: 07/31/17 09:10 Dose: 1 drop Digoxin (Lanoxin Tab*) 0.25 mg PO DAILY@1700 [facility] Last Admin: 07/30/17 15:25 Dose: 0.25 mg Furosemide (Lasix Tab*) 20 mg PO DAILY [facility] Last Admin: 07/31/17 08:51 Dose: 20 mg Gabapentin (Neurontin Cap(*)) 600 mg PO TID [facility] Last Admin: 07/31/17 15:12 Dose: 600 mg Ceftriaxone Sodium 1,000 mg/ (Sodium Chloride) 50 mls @ 200 mls/hr IVPB Q24H [facility] Last Admin: 07/31/17 11:52 Dose: 200 mls/hr Lisinopril (Prinivil Tab*) 10 mg PO DAILY [facility] Last Admin: 07/31/17 08:47 Dose: 10 mg Mesalamine (Lialda (Nf)) 2.4 gm PO BID [facility] Last Admin: 07/31/17 09:12 Dose: 2.4 gm Morphine Sulfate (Morphine Inj (Syringe)*) 1 mg IV Q2H PRN PRN Reason: PAIN Last Admin: 07/31/17 15:11 Dose: 1 mg Nebivolol (Bystolic (Nf)) 10 mg PO DAILY [facility] Last Admin: 09/18/17 08:51 Dose: 10 mg Pto - Budesonide [ (Uceris] 9 Mg) 9 mg PO DAILY [facility] Last Admin: 07/31/17 08:57 Dose: 9 mg Nystatin (Nystatin Top Powder*) 1 applic TOPICAL TID [facility] Last Admin: 07/31/17 15:13 Dose: 1 applic Prednisone (Deltasone Tab*) 20 mg PO DAILY [facility] Stop: 08/04/17 09:01 Last Admin: 07/31/17 08:50 Dose: 20 mg Prednisone (Deltasone Tab*) 10 mg PO DAILY [facility] Stop: 08/11/17 09:01 Prednisone (Deltasone Tab*) 5 mg PO DAILY [facility] Stop: 08/18/17 09:01 Spironolactone (Aldactone Tab*) 25 mg PO DAILY [facility] Last Admin: 07/31/17 08:51 Dose: 25 mg Tramadol HCl (Ultram*) 50 mg PO Q4HR PRN PRN Reason: PAIN Last Admin: 07/31/17 11:05 Dose: 50 mg Vital Signs 07/30/17 07/30/17 07/30/17 18:24 19:24 20:00 Temperature 97.9 F Pulse Rate 71 Respiratory 20 16 17 Rate Blood Pressure 131/69 (mmHg) O2 Sat by Pulse 97 Oximetry 07/30/17 07/30/17 07/30/17 21:05 21:14 22:05 Temperature Pulse Rate Respiratory 19 19 16 Rate Blood Pressure (mmHg) O2 Sat by Pulse Oximetry 07/30/17 07/30/17 07/31/17 23:14 23:36 00:57 Temperature 98.1 F Pulse Rate 77 Respiratory 16 17 17 Rate Blood Pressure 150/89 (mmHg) O2 Sat by Pulse 97 Oximetry 07/31/17 07/31/17 07/31/17 01:57 05:23 08:00 Temperature Pulse Rate Respiratory 16 18 16 Rate Blood Pressure (mmHg) O2 Sat by Pulse Oximetry 07/31/17 07/31/17 07/31/17 08:29 08:50 09:09 Temperature Pulse Rate 67 Respiratory 16 16 16 Rate Blood Pressure 143/105 (mmHg) O2 Sat by Pulse 97 Oximetry 07/31/17 07/31/17 07/31/17 10:09 10:50 11:05 Temperature Pulse Rate Respiratory 16 16 16 Rate Blood Pressure (mmHg) O2 Sat by Pulse Oximetry 07/31/17 07/31/17 07/31/17 11:48 12:48 13:05 Temperature Pulse Rate Respiratory 17 17 17 Rate Blood Pressure (mmHg) O2 Sat by Pulse Oximetry 07/31/17 07/31/17 07/31/17 15:11 15:12 17:10 Temperature 97.7 F Pulse Rate 77 Respiratory 16 16 24 Rate Blood Pressure 104/58 (mmHg) O2 Sat by Pulse 98 Oximetry Oxygen Devices in Use Now: None Eyes: No Scleral Icterus, PERRLA Ears/Nose/Mouth/Throat: NL Teeth, Lips, Gums, Clear Oropharnyx Neck: NL Appearance and Movements; NL JVP Respiratory: Symmetrical Chest Expansion and Respiratory Effort, Clear to Auscultation Cardiovascular: NL Sounds; No Murmurs; No JVD, RRR, No Edema Abdominal: NL Sounds; No Tenderness; No Distention, No Hepatosplenomegaly Lymphatic: No Cervical Adenopathy Extremities: No Edema Skin: No Rash or Ulcers Neurological: Alert and Oriented x 3 Result Diagrams: 07/28/17 13:34 07/28/17 13:34 Additional Lab and Data: Lab Results 07/28/17 07/28/17 07/28/17 Range/Units 13:34 13:34 13:34 WBC 10.2 (3.5-10.8) 10^3/ul RBC 3.54 L (4.0-5.4) 10^6/ul Hgb 11.8 L (12.0-16.0) g/dl Hct 35 (35-47) % MCV 100 H (80-97) fL MCH 33 H (27-31) pg MCHC 33 (31-36) g/dl RDW 16 H (10.5-15) % Plt Count 191 (150-450) 10^3/ul MPV 9 (7.4-10.4) um3 Neut % (Auto) 95.0 H (38-83) % Lymph % (Auto) 2.0 L (25-47) % [place] % (Auto) 2.7 (1-9) % Eos % (Auto) 0 (0-6) % Baso % (Auto) 0.3 (0-2) % Absolute Neuts (auto) 9.7 H (1.5-7.7) 10^3/ul Absolute Lymphs (auto) 0.2 L (1.0-4.8) 10^3/ul Absolute Monos (auto) 0.3 (0-0.8) 10^3/ul Absolute Eos (auto) 0 (0-0.6) 10^3/ul Absolute Basos (auto) 0 (0-0.2) 10^3/ul Absolute Nucleated RBC 0.02 10^3/ul Nucleated RBC % 0.2 INR (Anticoag Therapy) 1.22 H (0.89-1.11) Sodium 140 (133-145) mmol/L Potassium 4.5 (3.5-5.0) mmol/L Chloride 112 H (101-111) mmol/L Carbon Dioxide 18 L (22-32) mmol/L Anion Gap 10 (2-11) mmol/L BUN 62 H (6-24) mg/dL Creatinine 1.19 H (0.51-0.95) mg/dL Est GFR ( Amer) 56.7 (>60) Est GFR (Non-Af Amer) 44.1 (>60) BUN/Creatinine Ratio 52.1 H (8-20) Glucose 153 H (70-100) mg/dL Calcium 9.3 (8.6-10.3) mg/dL Total Bilirubin 0.70 (0.2-1.0) mg/dL AST 59 H (13-39) U/L ALT 54 H (7-52) U/L Alkaline Phosphatase 318 H (34-104) U/L C-Reactive Protein 5.09 H (< 5.00) mg/L Total Protein 6.1 L (6.4-8.9) g/dL Albumin 3.2 (3.2-5.2) g/dL Globulin 2.9 (2-4) g/dL Albumin/Globulin Ratio 1.1 (1-3) 07/29/17 23:50 Urine Color Yellow Urine Appearance Cloudy Urine pH 5.0 Ur Specific [place] 1.019 Urine Protein Negative Urine Ketones Negative Urine Blood 1+ H Urine Nitrate Positive H Urine Bilirubin Negative Urine Urobilinogen Negative Ur Leukocyte Esterase Trace H Urine WBC (Auto) 1+(6-10/hpf) H Urine RBC (Auto) Trace(0-2/hpf) Ur Squamous Epith Cells Present H Urine Bacteria 3+ H Urine Glucose Negative Microbiology and Other Data: Microbiology 07/29/17 23:50 Urine Culture - Preliminary Urine Klebsiella Pneumoniae Assess/Plan/Problems-Billing Assessment: Patient is a 77yo female with a PMH significant for UC, Afib, Peripheral Neuropathy on chronic steroids, HTN, and HLD who fractured her pelvis a month ago is admitted for observation, pain control, and PT. - Patient Problems (1) Pelvic fracture Current Visit: Yes Status: Acute Code(s): S32.9XXA - FRACTURE OF UNSP PARTS OF LUMBOSACRAL SPINE AND PELVIS, INIT SNOMED Code(s): 73095800 Comment: Standing Pelvis XR shows stable pelvis per ortho. Continue morphine and tramadol prn. Patient is waiting for STR in [place]. (2) Atrial fibrillation Current Visit: Yes Status: Acute Code(s): I48.91 - UNSPECIFIED ATRIAL FIBRILLATION SNOMED Code(s): 44680373 Comment: On Eliquis. Rate controlled with Bystolic and Digoxin. (3) On prednisone therapy Current Visit: Yes Status: Acute Code(s): Z79.52 - SOCIAL WORK SPECIALIST (CURRENT) USE OF SYSTEMIC STEROIDS SNOMED Code(s): 549613280 Comment: Per records, on prednisone for peripheral neuropathy. Will taper off and get a consult outpatient for steroid sparing therapies. (4) Peripheral neuropathy Current Visit: Yes Status: Acute Code(s): G62.9 - POLYNEUROPATHY, UNSPECIFIED SNOMED Code(s): 277455005 Comment: Continue Gabapentin, taper off prednisone. If autoimmune, should start on steroid sparing therapy outpatient. (5) Ulcerative colitis Current Visit: Yes Status: Acute Code(s): K51.90 - ULCERATIVE COLITIS, UNSPECIFIED, WITHOUT COMPLICATIONS SNOMED Code(s): 89317890 Comment: No Diarrhea or hematochezia. Continue Mesalamine. (6) DVT prophylaxis Current Visit: Yes Status: Acute Code(s): HKQ5157 - SNOMED Code(s): 077154545 Comment: Patient on Eliquis (7) Full code status Current Visit: Yes Status: Acute Code(s): Z78.9 - OTHER SPECIFIED HEALTH STATUS SNOMED Code(s): 357758619 Status and Disposition: Patient should be able to be discharged to [facility] when placement is found.
[2017-08-01] MEDS: Morphine INJ* 4 MG/ML 1 ML CARPUJECT IV PRN ×2 (05:10→09:38)
[2017-08-01 07:19] VITALS: BP 109/62
[2017-08-01] MEDS: Atorvastatin* 10 MG TAB PO SCH (07:45)
[2017-08-01] MEDS: Gabapentin CAP(*) 300 MG PO SCH (07:46)
[2017-08-01] MEDS: Apixaban* 5 MG TAB PO SCH (07:46)
[2017-08-01] MEDS: Calcium/Vitamin D TAB 250/125* TAB PO SCH (07:47)
[2017-08-01] MEDS: Spironolactone TAB* 25 MG PO SCH (07:47)
[2017-08-01] MEDS: PTO: Mesalamine (NF) 1.2 GM TAB PO SCH (07:51)
[2017-08-01] MEDS: NEBIVOLOL 10 MG PO SCH (07:51)
[2017-08-01] MEDS: BUDESONIDE 9 MG PO SCH (07:52)
[2017-08-01] MEDS: Furosemide TAB* 20 MG PO SCH (07:53)
[2017-08-01] MEDS ORDERED: predniSONE TAB* 10 MG PO SCH (09:00)
[2017-08-01 09:34] LABS: Hematocrit 32 % (35-47); Hemoglobin 10.8 g/dl (12.0-16.0); Mean Corpuscular HGB Conc 33 g/dl (31-36); Mean Corpuscular Hemoglobin 33 pg (27-31); Mean Corpuscular Volume 100 fL (80-97); Mean Platelet Volume 10 um3 (7.4-10.4); Red Blood Count 3.23 10^6/ul (4.0-5.4); Red Cell Distribution Width 16 % (10.5-15); White Blood Count 11.5 10^3/ul (3.5-10.8)
[2017-08-01 09:35] LABS: Add Diff/Slide Review? Slide Review Added; Comments Flag Yes
[2017-08-01] MEDS: CYCLOSPORINE 0.05% BOTH EYES SCH (09:43)
[2017-08-01] MEDS: Lisinopril TAB* 10 MG PO SCH (09:44)
[2017-08-01 10:02] LABS: BUN/Creatinine Ratio 43.7 (8-20); Calcium 8.6 mg/dL (8.6-10.3); EGFR African American 102.9 (>60)
[2017-08-01] MEDS: BETAMETHASONE VAL 0.1% TOPICAL SCH (10:29)
[2017-08-01] MEDS: predniSONE TAB* 20 MG PO SCH (10:29)
[2017-08-01] MEDS: Nystatin TOP POWDER* 15 GM BTL TOPICAL SCH (10:29)
--- NOTE | 2017-08-01 17:42 | DS ---
DISCHARGE SUMMARY: DATE OF ADMISSION: 07/28/17 DATE OF DISCHARGE: 08/01/17 ATTENDING PHYSICIAN: Leidy Soto DO * (DICTATED BY MARY ADAM) ADMITTING DIAGNOSIS: Pelvic fracture of the left superior and inferior pubic rami and fracture of the left sacral ala extending to the SI joint. Atrial fibrillation and idiopathic peripheral neuropathy. DISCHARGE DIAGNOSES: 1. Pelvic fracture of the left superior and inferior pubic rami, nondisplaced fracture of the left sacral ala extending to the SI joint. 2. Atrial fibrillation. 3. Idiopathic peripheral neuropathy. 4. Uncomplicated cystitis. HOSPITAL COURSE: For more detail, please see admission H&P from Dr Alireza Landeros. In brief, the patient was evaluated in the emergency department after a mechanical fall on 06/21/17, without loss of consciousness. The patient waited 2 weeks to go to a doctor and then had x-ray that showed no fractures and was prescribed Percocet. She then fell more times and had a MRI on 07/09/17 that showed she had a pelvic fracture. She declined admission at that time as well as physical therapy. She was admitted to [facility] on 07/28/17 and was started on intravenous pain medication to good effect. She was also started with PT and OT. Physical Therapy was consulted and deemed she was a candidate for therapy due to functional limitations from her pelvic fracture. Orthopedics was also consulted and they said that no other orthopedic intervention was needed at this time and that she could follow up in 2 weeks outpatient for pelvis x-rays. The patient continued to improve over the next few days with pain medication. Standing pelvis x- rays of the pelvic inlet and outlet showed no instability and the patient was offered a bed in RU here in the hospital. The patient has been on chronic prednisone therapy for 10 years for her peripheral neuropathy. This likely contributed to osteoporosis and fracture risk, so the prednisone was scheduled to be tapered from 20 mg for 7 days, 10 mg for 7 days and then 5 mg for 7 days. The patient will be discharged today for inpatient physical therapy and occupational therapy in the PMRU unit at [facility]. STUDIES DONE WHILE IN THE HOSPITAL: A lumbar spine CT scan read as osteopenia, degenerative disk disease and osteoarthritis and a nondisplaced fracture of left sacral ala extending to the SI joint. A pelvis CT on 07/28/17, was read as osteopenia, comminuted parasymphyseal fractures of the left superior and inferior pubic rami, nondisplaced fracture of the left SI joint, dystrophic calcification noted within the pelvic musculature, which may reflect the sequelae of previous trauma and there is a small focus of sclerosis with periosteal reaction along the left ischium. This may reflect the sequelae of remote trauma and aggressive lesion including metastatic disease or primary osseous neoplasm is also within the differential. Recommend attention and followup imaging. Pelvis x-ray of the inlet and outlet on 07/31/17, was read as fractures left superior and inferior pubic rami at the pubic symphysis. No progression from previous studies. PHYSICAL EXAMINATION ON DISCHARGE: General: The patient is a 77-year-old female who appears her stated age and sitting comfortably in the hospital bed. HEENT: Head, atraumatic and normocephalic. Mucous membranes moist. Pharynx nonerythematous. Cardiac: Regular rate and rhythm. No clicks, murmurs, gallops, or rubs. S1, S2 is present. Pulses 2+ in the radial area, 1+ in the posterior tibial and dorsalis pedis areas. Respiratory: Clear to auscultation. No wheezes, rales, or rhonchi. Good air exchange bilaterally. Abdomen: Nondistended and nontender. Bowel sounds are present in all 4 quadrants and normoactive. No abdominal bruits are auscultated. No hepatosplenomegaly. Genitourinary: No suprapubic tenderness or CVA tenderness. Musculoskeletal: Pain with palpation of the pelvis over areas corresponding to the fractures. The patient is able to stand and pivot to the commode. Exam limited by pain. Vital Signs: On 08/01/17, temperature 98.1, heart rate 96, respiratory rate 15, oxygen saturation 100% on room air, blood pressure 109/62. DISCHARGE MEDICATIONS: 1. Eliquis 5 mg p.o. b.i.d. 2. Spironolactone 25 mg p.o. daily. 3. Lipitor 10 mg p.o. daily. 4. Bystolic 10 mg p.o. daily. 5. Furosemide 20 mg p.o. daily. 6. Gabapentin 600 mg p.o. t.i.d. 7. Lisinopril 10 mg p.o. daily. 8. Prednisone 20 mg p.o. daily for 4 days. 9. Prednisone 10 mg p.o. daily for 7 days, prednisone 5 mg daily for 7 days. 10. Tramadol 50 mg p.o. q.4 hours for pain p.r.n. 11. Digoxin 0.25 mg p.o. daily. 12. Mesalamine 2.4 g p.o. b.i.d. 13. Calcium carbonate and vitamin D 500 one tab p.o. daily. 14. Botox 100 units injection q.3 months. 15. Budesonide 9 mg p.o. daily. 16. IVIG 5 g IV q.3 minutes. 17. Betamethasone 1% one application topical t.i.d. 18. Restasis 0.05% one drop both eyes b.i.d. 19. Artificial Tears one drop both eyes b.i.d. as needed. NEW MEDICATIONS AT DISCHARGE: 1. Augmentin 500 p.o. b.i.d. for 3 days. 2. MS Contin 15 mg p.o. b.i.d. as needed for severe pain. 3. Nystatin one application topical t.i.d. 4. Prednisone 10 mg p.o. daily for 7 days, prednisone 5 mg p.o. daily for 7 days. DISCHARGE PLAN: The patient will be discharged to [facility] for 3 hours a day of occupational and physical therapy until she is able to regain her strength and heal from her pelvic fractures. The patient will then return to [place] where she lives in the community and will be with assistance as her condition dictates after her rehab stay. TIME SPENT: Approximately an hour was spent on this discharge, 30 minutes of which was spent in [id number] with the patient obtaining history and physical and counseling on medications and care. My attending while in the hospital is Dr. Leidy Soto, this plan has been discussed with her and she is in agreement. MARY ADAM [id number]/[facility] #: [id number] MTDAnisha
[2017-08-04] MEDS ORDERED: predniSONE TAB* 5 MG PO SCH (09:00)
[2017-08-05] MEDS ORDERED: predniSONE TAB* 10 MG PO SCH (09:00)
[2017-08-12] MEDS ORDERED: predniSONE TAB* 5 MG PO SCH (09:00)
== END 2017-08-01 10:47 | DRG 552 ==
LOC: ED 11:34 → MED 15:51 → OBSVTOIN 15:52
PROVIDERS: ADMIT Internal Medicine; ATTEND Internal Medicine
DX: S32.10XA Unspecified fracture of sacrum, initial encounter for closed fracture (principal); G71.0 Muscular dystrophy; S32.592A Other specified fracture of left pubis, initial encounter for closed fracture; K51.90 Ulcerative colitis, unspecified, without complications; I48.91 Unspecified atrial fibrillation; N30.90 Cystitis, unspecified without hematuria; E86.0 Dehydration; I10 Essential (primary) hypertension; E78.5 Hyperlipidemia, unspecified; M81.0 Age-related osteoporosis without current pathological fracture; M85.88 Other specified disorders of bone density and structure, other site; R40.2412 Glasgow coma scale score 13-15, at arrival to emergency department; R25.1 Tremor, unspecified; W18.30XA Fall on same level, unspecified, initial encounter; G60.9 Hereditary and idiopathic neuropathy, unspecified; M47.9 Spondylosis, unspecified; Z91.81 History of falling; Z88.2 Allergy status to sulfonamides; Z87.891 Personal history of nicotine dependence; Z82.49 Family history of ischemic heart disease and other diseases of the circulatory system; Z72.89 Other problems related to lifestyle; Z90.710 Acquired absence of both cervix and uterus; Z82.3 Family history of stroke; Y92.042 Bedroom in boarding-house as the place of occurrence of the external cause; Z79.01 Long term (current) use of anticoagulants
CPT/HCPCS: 36415; 72131; 72190; 72192; 80048; 80053; 81003; 81015; 85025; 85610; 86140; 87077; 87086; 87186; A9270-GY; G8978-GP-CK; G8979-GP-CI; J0696; J1170; J2270; J2405; J7512

== ENCOUNTER 2017-08-01 07:32 | Inpatient (IN) | payer MEDICARE ==
[2017-08-01] MEDS ORDERED: Senna TAB PO PRN (11:38)
[2017-08-01] MEDS ORDERED: Bisacodyl SUPP* 10 MG SUPP PR PRN (11:38)
[2017-08-01] MEDS: traMADol TAB* 50 MG PO PRN ×2 (12:38→19:55)
[2017-08-01] MEDS: Levofloxacin TAB* 250 MG PO SCH (14:22)
[2017-08-01] MEDS: Gabapentin CAP(*) 300 MG PO SCH ×2 (14:23→19:56)
[2017-08-01] MEDS: BETAMETHASONE VALERATE 0.1% TOPICAL SCH ×2 (14:24→19:53)
[2017-08-01] MEDS: Digoxin TAB* 0.25 MG PO SCH (16:39)
[2017-08-01] MEDS: BUDESONIDE 9 MG PO SCH (16:42)
--- NOTE | 2017-08-01 18:41 | RAD ---
HISTORY: History of acromial fracture, assess healing. No other history is provided COMPARISONS: None relevant available at the time of dictation VIEWS: 4, Frontal internal rotation, external rotation, outlet, and axillary views of the left shoulder FINDINGS: BONE DENSITY: Normal. BONES: There is a comminuted and displaced fracture of the acromion. The fracture fragments are still visible. There is flattening of the humeral head JOINTS: There is osteoarthritis of the AC joint. There is near complete effacement of the glenohumeral joint. ALIGNMENT: There is no dislocation. SOFT TISSUES: Unremarkable. OTHER FINDINGS: None. IMPRESSION: 1. COMMINUTED FRACTURE OF THE ACROMION. 2. FLATTENING OF THE HUMERAL HEAD SUGGESTIVE OF PREVIOUS TRAUMA. 3. OSTEOARTHRITIS
[2017-08-01] MEDS: PTO:Mesalamine (NF) 1.2 GM TAB PO SCH (19:53)
[2017-08-01] MEDS: Apixaban* 5 MG TAB PO SCH (19:53)
[2017-08-01] MEDS: CMC:Cyclosporine 0.05% OPHTH (NF) 0.4 ML VIAL BOTH EYES SCH (19:54)
[2017-08-01] MEDS: Docusate CAP* 100 MG PO SCH (19:54)
[2017-08-01] MEDS: Nystatin TOP POWDER* 15 GM BTL TOPICAL SCH (19:55)
[2017-08-01] MEDS: SYSTANE BOTH EYES SCH (21:55)
--- NOTE | 2017-08-01 22:52 | HP ---
ADMISSION HISTORY AND PHYSICAL: DATE OF ADMISSION: 08/01/17 REASON FOR ADMISSION: Sacral ala fracture; pelvic fracture. HISTORY OF PRESENT ILLNESS: Linda Edmondson is a 77-year-old female. She has a medical history significant for peripheral neuropathy. She normally lives in [place]. Apparently, she gets IVIG infusions once a month while in [place]. In addition the patient, for her peripheral neuropathy, is on chronic prednisone. She has been on prednisone for years. She states she started out at 40 mg a day; but in the past few years, they cut it back to 20 mg a day. The patient normally lives on [address] [facility] in [place]. While in [place] in June, she was getting out of her car. Her glass became fogged up because of the heat and humidity and the patient lost her balance and fell. She was able to get back up and she did not go to the hospital for several days. Apparently , the patient went to the doctor on 07/01/17. The patient was evaluated by her primary care doctor. An x-ray was done on her left shoulder that apparently showed a left acromion fracture. It is unclear what treatment if any she had. Apparently, she may have fallen a second time while in [place]. The patient's son, with the [place] coming, decided that the patient should leave [place]. On 07/22/17, she was put on a plane and got to [place]. When she got off the plane, she had significant pain in her pelvis and back. She had a lot of difficulty standing and walking. She was brought to the emergency room by her son. In the emergency room, she had a CAT scan of her pelvis and lumbar spine. The CAT scan of the pelvis showed fractures of her left superior and inferior pubic rami as well as a nondisplaced fracture of the left sacral ala extending to the sacroiliac joint. She also had a lumbar spine CAT scan that did not show any compression fractures of the vertebrae, but did show again the left sacral ala fracture. She was seen by Orthopedics and admitted to the hospitalist service. Dr. Oliver from Orthopedics saw the patient and felt that she could weight bear as tolerated and that the fracture was stable. She had a followup pelvic x-ray and he again felt that the fracture was stable. The patient was still slow to mobilize. She was felt to have physical therapy and occupational therapy needs. She is now being admitted for inpatient rehab so that she might return to independent living. PAST MEDICAL HISTORY: Significant for atrial fibrillation. Normally, she takes Eliquis for this. In addition, she has a history of peripheral neuropathy as mentioned previously. Also of note, the patient was diagnosed with a urinary tract infection while on the acute medical floor. She has a history of ulcerative colitis as well. CURRENT MEDICATIONS: Include: 1. Lipitor. 2. She is on digoxin. 3. Lasix. 4. Neurontin. 5. Prinivil. 6. Lialda. 7. Bystolic. 8. Budesonide. 9. Eliquis. ALLERGIES: To [employer] SOCIAL HISTORY: She is a nonsmoker, occasional drinker. She lives on [address] [facility] in [place] near one of her sons. Currently, she is staying with her other son in [place]. The plan is to stay here for a few days after discharge and then find a flight back to [place]. REVIEW OF SYSTEMS: No current shortness of breath or chest pain. PHYSICAL EXAMINATION VITAL SIGNS: The patient's temperature is 98.6, blood pressure is 102/83, pulse 73, and respirations 18. HEENT: Her extraocular movements are intact. Tongue is midline. NECK: Supple. LUNGS: Sound clear to auscultation bilaterally. HEART: Sounds are regular, S1 and S2 are audible. ABDOMEN: Soft and nontender. EXTREMITIES: Peripheral pulses were intact. She has decreased range of motion of both shoulders. She had a right rotator cuff tear earlier this year and went to physical therapy for that. NEUROLOGIC: She is awake, alert, oriented. Muscle strength appears to be 5/5 in her lower extremities. Upper extremities are about 4+/5 because of her shoulder problems. Her functional exam, the patient transfers with minimal amount of assistance. ASSESSMENT: Left sacral ala fracture, left superior and inferior pubic rami fractures. PLAN: We are going to integrate her into a comprehensive and therapeutic rehab program with the following goals: 1. Physical Therapy will work with the patient. They are going to work on functional transfer training and ambulation training with a walker or cane. 2. Occupational Therapy will see the patient, work on her activities of daily living including toileting and toilet transfers. 3. Lovenox for DVT prophylaxis. 4. Adequate analgesia. 5. Her bowels will be regulated. 6. We are going to continue prednisone for now for her peripheral neuropathy. We are going to follow her closely. I am not sure that tapering her off rapidly is advisable given the number of years she has been on prednisone. 7. [employer] F[employer] will be closely involved to make sure that any services and equipment that patient requires are in place prior to discharge. 8. For her atrial fibrillation, we are going to continue Eliquis as well as her digoxin. 9. For her ulcerative colitis, we will continue her home medications. 10. Family training as appropriate. 11. Home with appropriate services. ESTIMATED LENGTH OF STAY: 10 to 14 days. [id number]/[facility] #: [id number] [facility]ORTNEY
[2017-08-01] MEDS: Acetaminophen TAB* 325 MG PO PRN (23:54)
[2017-08-02 06:37] LABS: Hematocrit 33 % (35-47); Mean Corpuscular HGB Conc 33 g/dl (31-36); Mean Corpuscular Hemoglobin 33 pg (27-31); Mean Corpuscular Volume 98 fL (80-97); Mean Platelet Volume 9 um3 (7.4-10.4); Red Blood Count 3.39 10^6/ul (4.0-5.4); Red Cell Distribution Width 17 % (10.5-15); White Blood Count 11.5 10^3/ul (3.5-10.8)
[2017-08-02 06:55] LABS: Albumin 2.8 g/dL (3.2-5.2); BUN/Creatinine Ratio 43.7 (8-20); Calcium 8.6 mg/dL (8.6-10.3); EGFR African American 102.9 (>60); Globulin 2.7 g/dL (2-4); Potassium 3.9 mmol/L (3.5-5.0); Total Bilirubin 0.5 mg/dL (0.2-1.0); Total Protein 5.5 g/dL (6.4-8.9)
[2017-08-02 07:11] LABS: Comments Flag Yes
[2017-08-02 07:12] LABS: Add Diff/Slide Review? Slide Review Added
[2017-08-02 07:58] LABS: Add Path Review? YES; Immature Granulocytes 9 % (0-9); Metamyelocytes % 5 % (0-2); Myelocytes % 1 % (0-1); Neutrophil % 83 % (38-83); Polychromasia 1+
[2017-08-02] MEDS: Docusate CAP* 100 MG PO SCH ×2 (08:02→20:02)
[2017-08-02] MEDS: Calcium/Vitamin D TAB 250/125* TAB PO SCH (08:07)
[2017-08-02] MEDS: Lisinopril TAB* 10 MG PO SCH (08:07)
[2017-08-02] MEDS: Gabapentin CAP(*) 300 MG PO SCH ×3 (08:07→20:07)
[2017-08-02] MEDS: Apixaban* 5 MG TAB PO SCH ×2 (08:07→20:07)
[2017-08-02] MEDS: traMADol TAB* 50 MG PO PRN ×2 (08:08→18:13)
[2017-08-02] MEDS: predniSONE TAB* 20 MG PO SCH (08:09)
[2017-08-02] MEDS: Furosemide TAB* 20 MG PO SCH (08:09)
[2017-08-02] MEDS: Spironolactone TAB* 25 MG PO SCH (08:09)
[2017-08-02] MEDS: PTO:Mesalamine (NF) 1.2 GM TAB PO SCH ×2 (08:10→20:08)
[2017-08-02] MEDS: BUDESONIDE 9 MG PO SCH (08:10)
[2017-08-02] MEDS: PTO:Nebivolol (NF) 10 MG TAB PO SCH (08:10)
[2017-08-02] MEDS: CMC:Cyclosporine 0.05% OPHTH (NF) 0.4 ML VIAL BOTH EYES SCH ×2 (08:12→20:08)
[2017-08-02] MEDS: BETAMETHASONE VALERATE 0.1% TOPICAL SCH ×3 (08:14→20:07)
[2017-08-02] MEDS: SYSTANE BOTH EYES SCH ×2 (08:20→20:02)
[2017-08-02] MEDS: Nystatin TOP POWDER* 15 GM BTL TOPICAL SCH ×2 (11:04→20:08)
[2017-08-02] MEDS: HYDROcodone/ACETAMIN 5-325 MG* 1 TAB PO PRN ×2 (12:14→20:09)
[2017-08-02] MEDS: Levofloxacin TAB* 250 MG PO SCH (12:58)
[2017-08-02] MEDS: Atorvastatin* 10 MG TAB PO SCH (17:19)
[2017-08-02] MEDS: Digoxin TAB* 0.25 MG PO SCH (17:19)
[2017-08-03] MEDS: HYDROcodone/ACETAMIN 5-325 MG* 1 TAB PO PRN ×4 (00:04→23:25)
[2017-08-03] MEDS: Furosemide TAB* 20 MG PO SCH (08:10)
[2017-08-03] MEDS: predniSONE TAB* 20 MG PO SCH (08:10)
[2017-08-03] MEDS: Lisinopril TAB* 10 MG PO SCH (08:10)
[2017-08-03] MEDS: Apixaban* 5 MG TAB PO SCH ×2 (08:10→21:21)
[2017-08-03] MEDS: Calcium/Vitamin D TAB 250/125* TAB PO SCH (08:10)
[2017-08-03] MEDS: PTO:Mesalamine (NF) 1.2 GM TAB PO SCH ×2 (08:11→21:31)
[2017-08-03] MEDS: PTO:Nebivolol (NF) 10 MG TAB PO SCH (08:11)
[2017-08-03] MEDS: BUDESONIDE 9 MG PO SCH (08:11)
[2017-08-03] MEDS: traMADol TAB* 50 MG PO PRN (08:11)
[2017-08-03] MEDS: CMC:Cyclosporine 0.05% OPHTH (NF) 0.4 ML VIAL BOTH EYES SCH ×2 (08:11→21:26)
[2017-08-03] MEDS: Gabapentin CAP(*) 300 MG PO SCH ×3 (08:12→21:27)
[2017-08-03] MEDS: Docusate CAP* 100 MG PO SCH ×2 (08:17→21:02)
[2017-08-03] MEDS: SYSTANE BOTH EYES SCH ×2 (08:17→21:33)
[2017-08-03] MEDS: Spironolactone TAB* 25 MG PO SCH (08:31)
[2017-08-03] MEDS: BETAMETHASONE VALERATE 0.1% TOPICAL SCH ×3 (10:05→21:22)
[2017-08-03] MEDS: Nystatin TOP POWDER* 15 GM BTL TOPICAL SCH ×2 (10:05→21:31)
[2017-08-03] MEDS: Acetaminophen TAB* 325 MG PO PRN (12:50)
[2017-08-03] MEDS: Levofloxacin TAB* 250 MG PO SCH (12:59)
[2017-08-03] MEDS: Digoxin TAB* 0.25 MG PO SCH (17:44)
[2017-08-03] MEDS: Atorvastatin* 10 MG TAB PO SCH (17:45)
[2017-08-04] MEDS: traMADol TAB* 50 MG PO PRN ×3 (02:11→15:39)
[2017-08-04] MEDS: HYDROcodone/ACETAMIN 5-325 MG* 1 TAB PO PRN ×3 (04:30→17:39)
[2017-08-04] MEDS: BUDESONIDE 9 MG PO SCH (08:44)
[2017-08-04] MEDS: Apixaban* 5 MG TAB PO SCH ×2 (08:45→20:57)
[2017-08-04] MEDS: PTO:Nebivolol (NF) 10 MG TAB PO SCH (08:45)
[2017-08-04] MEDS: Furosemide TAB* 20 MG PO SCH (08:45)
[2017-08-04] MEDS: PTO:Mesalamine (NF) 1.2 GM TAB PO SCH ×2 (08:45→21:04)
[2017-08-04] MEDS: Calcium/Vitamin D TAB 250/125* TAB PO SCH (08:46)
[2017-08-04] MEDS: Lisinopril TAB* 10 MG PO SCH (08:46)
[2017-08-04] MEDS: Spironolactone TAB* 25 MG PO SCH (08:46)
[2017-08-04] MEDS: Gabapentin CAP(*) 300 MG PO SCH ×3 (08:47→20:57)
[2017-08-04] MEDS: CMC:Cyclosporine 0.05% OPHTH (NF) 0.4 ML VIAL BOTH EYES SCH ×2 (08:48→21:02)
[2017-08-04] MEDS: Docusate CAP* 100 MG PO SCH (08:52)
[2017-08-04] MEDS: predniSONE TAB* 20 MG PO SCH (08:56)
[2017-08-04] MEDS: SYSTANE BOTH EYES SCH ×2 (09:22→21:08)
[2017-08-04] MEDS ORDERED: Docusate CAP* 100 MG PO PRN (10:52)
[2017-08-04] MEDS: BETAMETHASONE VALERATE 0.1% TOPICAL SCH ×3 (11:17→21:00)
[2017-08-04] MEDS: Nystatin TOP POWDER* 15 GM BTL TOPICAL SCH ×2 (11:17→21:09)
--- NOTE | 2017-08-04 12:52 | PMRUTEAM ---
PMRU: Goals Current Status: Nursing: Current Status Skin Deviations [Abdominal Rash Fold] Skin Deviations [Bilateral Rash Groin] Skin Deviations [Bilateral Rash Breast] Skin Deviation Description [ no reddnes noted Abdominal Fold] Skin Deviation Description [ no reddness noted Bilateral Groin] Skin Deviation Description [ no reddness noted Bilateral Breast] Bladder Current Status urgency noted Bowel Current Status HX of collitis frequent BMs Nutrition Current Status adequate Physical Therapy: Current Status Bed Mobility Assistance Mod Assist Transfer Moblility Assistance Contact Guard Assist,Min Assist Transfer/Bed Mobility Rolling Walker Recommended Devices Ambulation Assistance Contact Guard Assist Ambulation Assistive Devices Rolling Walker Number of Feet Patient 20 Ambulated Occupational Therapy: Current Status Upper Body Dressing Mod Assist Lower Body Dressing Min Assist Bathing Mod Assist Toileting Total Assist Toilet Transfer Min Assist Shower Transfer Min Assist Eating Ind with Adaptive Equip Instrumental ADL dependent in all IADLs Rec Therapy: Current Status Summary of Assessment and Pt. was open to conversation - identified with Clinical Impression leisure activities and active involvement in them. Pt. had leisure material but was open to continued visits. Treatment Goals Pt. will engage in leisure activities while on the unit. Treatment Plan Provide RT services and encourage involvement. Social Work: Current Status Discharge Plan return home to son's home in [facility] w/ home care svs and family support Potential for Family Training pt's family is involved and supportive Anticipated Discharge Home Destination Discharge With home care svs and family support Goals: Physical Therapy: Initial Goals Bed Mobility Assistance Independent Transfer Mobility Assistance Independent Transfer/Bed Mobility Rolling Walker Recommended Devices Ambulation Independent Ambulation Recommended Devices Rolling Walker Ambulation Distance 150 Stairs Assistance Independent Stair Recommended Devices Two Rails Number of Stairs 10 Occupational Therapy: Initial Goals Goals to be Completed in (Days 10-14 days ) Upper Body Bathing Routine Modified Independent with Lower Body Bathing Routine Modified Independent with Upper Body Dressing Routine Modified Independent with Lower Body Dressing Routine Modified Independent with Toilet Hygeine and Clothing Modified Independent with Management Routine Toilet Transfer Routine Modified Independent with Step-In Shower Transfer Modified Independent with Routine Functional Transfers for ADL Modified Independent with Grooming Routine Modified Independent with Feeding Routine Modified Independent with Light Housekeeping Tasks Modified Independent with Social Work: Goals Discharge Plan return home to son's home in [facility] w/ home care svs and family support Potential for Family Training pt's family is involved and supportive Anticipated Discharge Home Destination Discharge With home care svs and family support Care Plan: Care Plan Cardiovascular- Improve/Maintain Start: 08/01/17 12:48 Freq: DAILY Status: Active Target: Activity Type Activity Date Activity User E-Sign Co-Sign Detail Recorded Client Recorded Date Recorded By Document 08/04/17 01:01 [id number] 08/04/17 01:02 [id number] 08/04/17 01:01 PMRU Outcome: Cardiovascular Vital Signs q Shift for 48hrs Then BID Yes Daily Weight Ordered No Current Cardiovascular Outcome/Goal Free of Abnormal Cardiac Symptoms Progression Toward Outcome/Goal Progressing Outcome/Goals Met Comment hx of AFIB DVT Prophylaxis- Improve/Maintain Start: 08/01/17 12:48 Freq: DAILY Status: Active Target: Activity Type Activity Date Activity User E-Sign Co-Sign Detail Recorded Client Recorded Date Recorded By Document 08/04/17 01:01 [id number] 08/04/17 01:02 [id number] 08/04/17 01:01 PMRU Outcome: DVT Prophylaxis Outcome/Goals Remains Free of DVT Complies with DVT Prophylaxis /Treatment Progression Toward Outcome/Goals Progressing Discharge Planning - Improve/Maintain Start: 08/01/17 12:48 Freq: DAILY Status: Active Target: Activity Type Activity Date Activity User E-Sign Co-Sign Detail Recorded Client Recorded Date Recorded By Document 08/04/17 01:01 [id number] 08/04/17 01:02 [id number] 08/04/17 01:01 PMRU Outcome: Discharge Planning Update Patient Family No Outcome/Goals Demonstrates Understanding of Discharge Plan Progression Toward Outcome/Goals Progressing Education-Improve/Maintain Start: 08/01/17 12:48 Freq: DAILY Status: Active Target: Activity Type Activity Date Activity User E-Sign Co-Sign Detail Recorded Client Recorded Date Recorded By Document 08/04/17 01:01 [id number] 08/04/17 01:02 [id number] 08/04/17 01:01 PMRU Outcome: Education Outcome/Goals Encourage Questions Progression Toward Outcome/Goals Progressing /GI-Improve/Maintain Start: 08/01/17 12:48 Freq: DAILY Status: Active Target: Activity Type Activity Date Activity User E-Sign Co-Sign Detail Recorded Client Recorded Date Recorded By Document 08/04/17 01:01 [id number] 08/04/17 01:02 [id number] 08/04/17 01:01 PMRU Outcome: Genitourinary/ Gastrointestinal Genitourinary- Outcome/Goals Remain Free of Hospital- Acquired UTI Gastrointestinal-Outcome/Goals Maintain/ Achieve Bowel Regularity in Accordance with Pt's Baseline Progression Toward Outcome/Goals - Progressing Progression Toward Outcome/Goals - GI Progressing Outcome/Goals Met Comment hx of colitis Medication Administration Start: 08/01/17 12:48 Freq: DAILY Status: Active Target: Activity Type Activity Date Activity User E-Sign Co-Sign Detail Recorded Client Recorded Date Recorded By Document 08/04/17 01:01 [id number] 08/04/17 01:02 [id number] 08/04/17 01:01 PMRU Outcome: Medication Administration Assess Patient Knowledge/Teach Med Yes Education for all Meds Outcome/Goals Patient Independent with Medication Administration at Home Demonstrates Understanding Progression Towards Outcome/Goals Progressing Is Patient Going Home on Lovenox? No Pain/Comfort- Improve/Maintain Start: 08/01/17 12:48 Freq: DAILY Status: Active Target: Activity Type Activity Date Activity User E-Sign Co-Sign Detail Recorded Client Recorded Date Recorded By Document 08/04/17 01:01 [id number] 08/04/17 01:02 [id number] 08/04/17 01:01 PMRU Outcome: Pain/Comfort Outcome/Goals Demonstrates Knowledge and Use of Available Comfort Measures Achieves Acceptable Comfort/Pain Level as Determined by Patient/Condit Maintain Comfort Level Allowing Patient to Fully Participate in Rehab Progression Toward Outcome/Goals Progressing Outcome/Goals Met Comment 0.5 tab of [place] given Safety- Improve/Maintain Start: 08/01/17 12:48 Freq: DAILY Status: Active Target: Activity Type Activity Date Activity User E-Sign Co-Sign Detail Recorded Client Recorded Date Recorded By Document 08/04/17 01:01 [id number] 08/04/17 01:02 [id number] 08/04/17 01:01 PMRU Outcome: Safety Outcome/Goals Cooperates with Safety Measures for Least Restrictive Environment Prevent Falls/ Injury Progression Toward Outcome/Goals Progressing Outcome/Goals Met Comment ringing appropriately Medicine Note: Length of Stay: [2 weeks] Anticipated Discharge Destination: Home Tentative Discharge Date: [08/18/17] Discharged to: [home]
[2017-08-04] MEDS: Levofloxacin TAB* 250 MG PO SCH (13:45)
[2017-08-04] MEDS: Digoxin TAB* 0.25 MG PO SCH (17:34)
[2017-08-04] MEDS: Atorvastatin* 10 MG TAB PO SCH (17:34)
[2017-08-04] MEDS: Acetaminophen TAB* 325 MG PO PRN (20:54)
[2017-08-05] MEDS: HYDROcodone/ACETAMIN 5-325 MG* 1 TAB PO PRN ×4 (00:51→21:06)
[2017-08-05] MEDS: traMADol TAB* 50 MG PO PRN ×3 (03:52→19:31)
[2017-08-05] MEDS ORDERED: predniSONE TAB* 10 MG PO SCH (09:00)
[2017-08-05] MEDS: CMC:Cyclosporine 0.05% OPHTH (NF) 0.4 ML VIAL BOTH EYES SCH ×2 (09:29→21:05)
[2017-08-05] MEDS: Spironolactone TAB* 25 MG PO SCH (09:30)
[2017-08-05] MEDS: Gabapentin CAP(*) 300 MG PO SCH ×3 (09:30→21:00)
[2017-08-05] MEDS: Calcium/Vitamin D TAB 250/125* TAB PO SCH (09:31)
[2017-08-05] MEDS: Apixaban* 5 MG TAB PO SCH ×2 (09:31→21:06)
[2017-08-05] MEDS: Lisinopril TAB* 10 MG PO SCH (09:31)
[2017-08-05] MEDS: Furosemide TAB* 20 MG PO SCH (09:31)
[2017-08-05] MEDS: predniSONE TAB* 10 MG PO SCH (09:31)
[2017-08-05] MEDS: PTO:Mesalamine (NF) 1.2 GM TAB PO SCH ×2 (09:32→21:07)
[2017-08-05] MEDS: BUDESONIDE 9 MG PO SCH (09:32)
[2017-08-05] MEDS: PTO:Nebivolol (NF) 10 MG TAB PO SCH (09:32)
[2017-08-05] MEDS: BETAMETHASONE VALERATE 0.1% TOPICAL SCH ×3 (09:34→20:59)
[2017-08-05] MEDS: Nystatin TOP POWDER* 15 GM BTL TOPICAL SCH ×2 (09:34→21:07)
[2017-08-05] MEDS: SYSTANE BOTH EYES SCH ×2 (10:27→21:05)
[2017-08-05] MEDS: Acetaminophen TAB* 325 MG PO PRN (15:51)
[2017-08-05] MEDS: Atorvastatin* 10 MG TAB PO SCH (15:51)
[2017-08-05] MEDS: Digoxin TAB* 0.25 MG PO SCH (15:51)
[2017-08-06] MEDS: HYDROcodone/ACETAMIN 5-325 MG* 1 TAB PO PRN ×4 (01:03→16:20)
[2017-08-06] MEDS: traMADol TAB* 50 MG PO PRN ×3 (02:44→20:01)
[2017-08-06] MEDS: CMC:Cyclosporine 0.05% OPHTH (NF) 0.4 ML VIAL BOTH EYES SCH ×2 (09:22→20:01)
[2017-08-06] MEDS: BETAMETHASONE VALERATE 0.1% TOPICAL SCH ×3 (09:23→20:01)
[2017-08-06] MEDS: Nystatin TOP POWDER* 15 GM BTL TOPICAL SCH ×2 (09:23→20:02)
[2017-08-06] MEDS: PTO:Mesalamine (NF) 1.2 GM TAB PO SCH ×2 (09:23→20:02)
[2017-08-06] MEDS: PTO:Nebivolol (NF) 10 MG TAB PO SCH (09:24)
[2017-08-06] MEDS: Lisinopril TAB* 10 MG PO SCH (09:24)
[2017-08-06] MEDS: Furosemide TAB* 20 MG PO SCH (09:24)
[2017-08-06] MEDS: predniSONE TAB* 10 MG PO SCH (09:24)
[2017-08-06] MEDS: Apixaban* 5 MG TAB PO SCH ×2 (09:24→20:01)
[2017-08-06] MEDS: Gabapentin CAP(*) 300 MG PO SCH ×3 (09:24→20:01)
[2017-08-06] MEDS: BUDESONIDE 9 MG PO SCH (09:25)
[2017-08-06] MEDS: Spironolactone TAB* 25 MG PO SCH (09:25)
[2017-08-06] MEDS: Calcium/Vitamin D TAB 250/125* TAB PO SCH (09:25)
[2017-08-06] MEDS: SYSTANE BOTH EYES SCH ×2 (09:26→20:24)
[2017-08-06] MEDS ORDERED: BUDESONIDE 3 MG PO PRN (10:19)
[2017-08-06] MEDS: Digoxin TAB* 0.25 MG PO SCH (16:20)
[2017-08-06] MEDS: Atorvastatin* 10 MG TAB PO SCH (16:20)
[2017-08-07] MEDS: HYDROcodone/ACETAMIN 5-325 MG* 1 TAB PO PRN ×5 (00:46→21:12)
[2017-08-07] MEDS: predniSONE TAB* 10 MG PO SCH (08:08)
[2017-08-07] MEDS: BETAMETHASONE VALERATE 0.1% TOPICAL SCH ×3 (08:08→21:10)
[2017-08-07] MEDS: Nystatin TOP POWDER* 15 GM BTL TOPICAL SCH ×2 (08:08→21:12)
[2017-08-07] MEDS: Apixaban* 5 MG TAB PO SCH ×2 (08:09→21:10)
[2017-08-07] MEDS: Lisinopril TAB* 10 MG PO SCH (08:09)
[2017-08-07] MEDS: Furosemide TAB* 20 MG PO SCH (08:09)
[2017-08-07] MEDS: Calcium/Vitamin D TAB 250/125* TAB PO SCH (08:09)
[2017-08-07] MEDS: PTO:Nebivolol (NF) 10 MG TAB PO SCH (08:10)
[2017-08-07] MEDS: Spironolactone TAB* 25 MG PO SCH (08:10)
[2017-08-07] MEDS: PTO:Mesalamine (NF) 1.2 GM TAB PO SCH ×2 (08:10→21:11)
[2017-08-07] MEDS: Gabapentin CAP(*) 300 MG PO SCH ×3 (08:11→21:12)
[2017-08-07] MEDS: CMC:Cyclosporine 0.05% OPHTH (NF) 0.4 ML VIAL BOTH EYES SCH ×2 (08:11→21:11)
[2017-08-07] MEDS: SYSTANE BOTH EYES SCH ×2 (08:16→21:12)
[2017-08-07] MEDS: traMADol TAB* 50 MG PO PRN ×2 (08:27→14:17)
[2017-08-07] MEDS ORDERED: HYDROcodone/ACETAMIN 5-325 MG* 1 TAB PO ONE (12:07)
--- NOTE | 2017-08-07 12:09 | RAD ---
Indication: Acromion process fracture, evaluate for healing. CT of the left shoulder was obtained in the axial plane. Sagittal and coronal reconstructed images were obtained. There is a comminuted fracture of the distal acromion process. No significant bony union is noted. The fracture is moderately comminuted. There is a superiorly subluxed humeral head noted. The possibility of a chronic supraspinatus tear should be considered. The supraspinatus muscle appears to be atrophic. IMPRESSION: 1. Comminuted fracture of the distal acromion process with no significant bony union. 2. Chronic superiorly subluxed humeral head is noted.
[2017-08-07] MEDS: Atorvastatin* 10 MG TAB PO SCH (16:34)
[2017-08-07] MEDS: Digoxin TAB* 0.25 MG PO SCH (16:51)
[2017-08-08] MEDS: HYDROcodone/ACETAMIN 5-325 MG* 1 TAB PO PRN ×4 (02:00→19:10)
[2017-08-08] MEDS: traMADol TAB* 50 MG PO PRN (04:07)
[2017-08-08] MEDS: Acetaminophen TAB* 325 MG PO PRN (05:37)
[2017-08-08] MEDS: Spironolactone TAB* 25 MG PO SCH (07:58)
[2017-08-08] MEDS: Calcium/Vitamin D TAB 250/125* TAB PO SCH (07:58)
[2017-08-08] MEDS: Furosemide TAB* 20 MG PO SCH (07:58)
[2017-08-08] MEDS: Apixaban* 5 MG TAB PO SCH ×2 (07:59→20:19)
[2017-08-08] MEDS: Lisinopril TAB* 10 MG PO SCH (07:59)
[2017-08-08] MEDS: predniSONE TAB* 10 MG PO SCH (07:59)
[2017-08-08] MEDS: PTO:Mesalamine (NF) 1.2 GM TAB PO SCH ×2 (08:01→20:17)
[2017-08-08] MEDS: PTO:Nebivolol (NF) 10 MG TAB PO SCH (08:01)
[2017-08-08] MEDS: Gabapentin CAP(*) 300 MG PO SCH ×3 (08:01→20:18)
[2017-08-08] MEDS: CMC:Cyclosporine 0.05% OPHTH (NF) 0.4 ML VIAL BOTH EYES SCH ×2 (08:03→20:22)
[2017-08-08] MEDS: BETAMETHASONE VALERATE 0.1% TOPICAL SCH ×3 (08:07→20:16)
[2017-08-08] MEDS: Nystatin TOP POWDER* 15 GM BTL TOPICAL SCH ×2 (08:07→20:27)
[2017-08-08] MEDS: SYSTANE BOTH EYES SCH ×2 (08:11→20:25)
--- NOTE | 2017-08-08 12:53 | PMRUTEAM ---
PMRU: Goals Current Status: Nursing: Current Status Skin Deviations [Abdominal Rash Fold] Skin Deviations [Bilateral Rash Groin] Skin Deviations [Bilateral Rash Breast] Skin Deviation Description [ no redness noted Abdominal Fold] Skin Deviation Description [ no redness noted Bilateral Groin] Skin Deviation Description [ no redness noted Bilateral Breast] Bladder Current Status urgency noted Bowel Current Status HX of collitis frequent BMs Nutrition Current Status adequate Physical Therapy: Current Status Bed Mobility Assistance Supervision,Contact Guard Assist,Mod Assist Transfer Moblility Assistance Supervision,Contact Guard Assist Transfer/Bed Mobility Rolling Walker Recommended Devices Ambulation Assistance Supervision,Contact Guard Assist Ambulation Assistive Devices Rolling Walker Number of Feet Patient 50' Ambulated Stairs Assistance Not Tested Stairs Recommended Devices Two Rails Number of Stairs 3 Curb Not Tested Occupational Therapy: Current Status Upper Body Dressing Min Assist Lower Body Dressing Min Assist Bathing Min Assist Toileting Mod Assist Toilet Transfer Contact Guard Assist Shower Transfer Contact Guard Assist Eating Independent Instrumental ADL dependent in IADLs Rec Therapy: Current Status Summary of Assessment and RT assessment complete and pt. is aware of Clinical Impression services. Pt. is open to continued leisure visits . Treatment Goals Pt. will engage in leisure activities while on the unit. Treatment Plan Provide RT services and encourage involvement. Social Work: Current Status Discharge Plan return home with home care svs and family support Potential for Family Training pt's family is involved and supportive Anticipated Discharge Home Destination Discharge With home care svs and family support Nutrition: Current Status Monitoring Full assessment planned 08/11 per RDN/NDS protocol. Eating very well (75-100% consistently); regular diet. BG last week 189 - no hx DM; prednisone tapering. Receives Lasix; K 3.9. Goals: Physical Therapy: Initial Goals Bed Mobility Assistance Independent Transfer Mobility Assistance Independent Transfer/Bed Mobility Rolling Walker Recommended Devices Ambulation Independent Ambulation Recommended Devices Rolling Walker Ambulation Distance 150 Stairs Assistance Independent Stair Recommended Devices Two Rails Number of Stairs 10 Physical Therapy: Updated Goals Bed Mobility Assistance Independent Transfer Mobility Assistance Independent Transfer/Bed Mobility Rolling Walker Recommended Devices Ambulation Assistance Independent Ambulation Assistive Devices Rolling Walker Ambulation Distance (ft) 150 Stairs Assistance Independent Stairs Recommended Devices Two Rails Number of Stairs 10 Occupational Therapy: Initial Goals Goals to be Completed in (Days 10-14 days ) Upper Body Bathing Routine Modified Independent with Lower Body Bathing Routine Modified Independent with Upper Body Dressing Routine Modified Independent with Lower Body Dressing Routine Modified Independent with Toilet Hygeine and Clothing Modified Independent with Management Routine Toilet Transfer Routine Modified Independent with Step-In Shower Transfer Modified Independent with Routine Functional Transfers for ADL Modified Independent with Grooming Routine Modified Independent with Feeding Routine Modified Independent with Light Housekeeping Tasks Modified Independent with Nutrition: Goals Intervention Goals 1. adequate po intake to support stable wt and lean body mass without add'l wt gain 2. reasonable glycemic control in setting of steroid therapy; no s/sx hyperglycemia 3. maintain K and other electrolytes within adequate ranges 4. maintain bowel regularity without c/o constipation (or diarrhea) Social Work: Goals Discharge Plan return home with home care svs and family support Potential for Family Training pt's family is involved and supportive Anticipated Discharge Home Destination Discharge With home care svs and family support Care Plan: Care Plan ADL's - Improve/Maintain Start: 08/04/17 15:50 Freq: DAILY Status: Active Target: Activity Type Activity Date Activity User E-Sign Co-Sign Detail Recorded Client Recorded Date Recorded By Document 08/04/17 15:50 [id number] 08/04/17 15:51 [id number] 08/04/17 15:50 PMRU Outcome: ADL's/ADL Transfers Orders/Interventions Occupational Therapy Evaluation & Treatment Patient to receive OT 5x/wk for 60-120 Therex min/day Self Care Management Group Therapy UE/LE ADL's with Assist Yes: mod I ADL Transfers with Assist Yes: mod I Toileting: Transfers,Clothing Management Yes: mod I ,Hygeine w/Assist Progression Toward Outcome/Goals Progressing Outcome/Goals Met Pt. is gradually progressing towards goals but is limited 2* pain in B shoulders and pelvis. Pt. is begining to use AE more regularly and is becoming more successful with using AE. Nursing is working on managing pts. pain levels. Cardiovascular- Improve/Maintain Start: 08/01/17 12:48 Freq: DAILY Status: Active Target: Activity Type Activity Date Activity User E-Sign Co-Sign Detail Recorded Client Recorded Date Recorded By Document 08/08/17 08:00 [id number] 08/08/17 10:49 [id number] 08/08/17 08:00 PMRU Outcome: Cardiovascular Vital Signs q Shift for 48hrs Then BID Yes Daily Weight Ordered No Current Cardiovascular Outcome/Goal Free of Abnormal Cardiac Symptoms Progression Toward Outcome/Goal Progressing Outcome/Goals Met Comment hx of AFIB DVT Prophylaxis- Improve/Maintain Start: 08/01/17 12:48 Freq: DAILY Status: Active Target: Activity Type Activity Date Activity User E-Sign Co-Sign Detail Recorded Client Recorded Date Recorded By Document 08/08/17 08:00 [id number] 08/08/17 10:49 [id number] 08/08/17 08:00 PMRU Outcome: DVT Prophylaxis Outcome/Goals Remains Free of DVT Complies with DVT Prophylaxis /Treatment Progression Toward Outcome/Goals Progressing Discharge Planning - Improve/Maintain Start: 08/01/17 12:48 Freq: DAILY Status: Active Target: Activity Type Activity Date Activity User E-Sign Co-Sign Detail Recorded Client Recorded Date Recorded By Document 08/08/17 00:39 [id number] 08/08/17 00:40 [id number] 08/08/17 00:39 PMRU Outcome: Discharge Planning Identify Patient Needs yes Update Patient Family No Outcome/Goals Demonstrates Understanding of Discharge Plan Progression Toward Outcome/Goals Progressing Education-Improve/Maintain Start: 08/01/17 12:48 Freq: DAILY Status: Active Target: Activity Type Activity Date Activity User E-Sign Co-Sign Detail Recorded Client Recorded Date Recorded By Document 08/08/17 08:00 [id number] 08/08/17 10:49 [id number] 08/08/17 08:00 PMRU Outcome: Education Outcome/Goals Demonstrate/ Verbalize Understanding of Written Discharge Instructions Encourage Questions Progression Toward Outcome/Goals Progressing /GI-Improve/Maintain Start: 08/01/17 12:48 Freq: DAILY Status: Active Target: Activity Type Activity Date Activity User E-Sign Co-Sign Detail Recorded Client Recorded Date Recorded By Document 08/08/17 08:00 [id number] 08/08/17 10:49 [id number] 08/08/17 08:00 PMRU Outcome: Genitourinary/ Gastrointestinal Genitourinary- Outcome/Goals Maintain/ Achieve Urinary Continence Remain Free of Hospital- Acquired UTI Gastrointestinal-Outcome/Goals Maintain/ Achieve Bowel Regularity in Accordance with Pt's Baseline Progression Toward Outcome/Goals - Progressing Progression Toward Outcome/Goals - GI Progressing Outcome/Goals Met Comment hx of colitis Medication Administration Start: 08/01/17 12:48 Freq: DAILY Status: Active Target: Activity Type Activity Date Activity User E-Sign Co-Sign Detail Recorded Client Recorded Date Recorded By Document 08/08/17 08:00 [id number] 08/08/17 10:49 [id number] 08/08/17 08:00 PMRU Outcome: Medication Administration Assess Patient Knowledge/Teach Med Yes Education for all Meds Outcome/Goals Patient Independent with Medication Administration at Home Demonstrates Understanding Progression Towards Outcome/Goals Progressing Is Patient Going Home on Lovenox? No Pain/Comfort- Improve/Maintain Start: 08/01/17 12:48 Freq: DAILY Status: Active Target: Activity Type Activity Date Activity User E-Sign Co-Sign Detail Recorded Client Recorded Date Recorded By Document 08/08/17 08:00 [id number] 08/08/17 10:49 [id number] 08/08/17 08:00 PMRU Outcome: Pain/Comfort Outcome/Goals Demonstrates Knowledge and Use of Available Comfort Measures Achieves Acceptable Comfort/Pain Level as Determined by Patient/Condit Maintain Comfort Level Allowing Patient to Fully Participate in Rehab Progression Toward Outcome/Goals Progressing Outcome/Goals Met Comment pt given 2 norco with positive results Safety- Improve/Maintain Start: 08/01/17 12:48 Freq: DAILY Status: Active Target: Activity Type Activity Date Activity User E-Sign Co-Sign Detail Recorded Client Recorded Date Recorded By Document 08/08/17 08:00 [id number] 08/08/17 10:49 [id number] 08/08/17 08:00 PMRU Outcome: Safety Outcome/Goals Cooperates with Safety Measures for Least Restrictive Environment Prevent Falls/ Injury Progression Toward Outcome/Goals Progressing Outcome/Goals Met Comment rings appropriately Medicine Note: Length of Stay: 10 days Anticipated Discharge Destination: Home Tentative Discharge Date: 08/18/17 Discharged to: home
[2017-08-08] MEDS: Digoxin TAB* 0.25 MG PO SCH (16:51)
[2017-08-08] MEDS: Atorvastatin* 10 MG TAB PO SCH (16:52)
[2017-08-08] MEDS: UCERIS PO PRN (20:25)
[2017-08-09] MEDS: HYDROcodone/ACETAMIN 5-325 MG* 1 TAB PO PRN ×5 (01:46→23:58)
[2017-08-09] MEDS: traMADol TAB* 50 MG PO PRN (06:30)
[2017-08-09] MEDS: BETAMETHASONE VALERATE 0.1% TOPICAL SCH ×3 (08:12→21:04)
[2017-08-09] MEDS: Nystatin TOP POWDER* 15 GM BTL TOPICAL SCH ×2 (08:12→21:04)
[2017-08-09] MEDS: Calcium/Vitamin D TAB 250/125* TAB PO SCH (08:27)
[2017-08-09] MEDS: Furosemide TAB* 20 MG PO SCH (08:27)
[2017-08-09] MEDS: predniSONE TAB* 10 MG PO SCH (08:28)
[2017-08-09] MEDS: Spironolactone TAB* 25 MG PO SCH (08:28)
[2017-08-09] MEDS: Lisinopril TAB* 10 MG PO SCH (08:28)
[2017-08-09] MEDS: Apixaban* 5 MG TAB PO SCH ×2 (08:28→21:01)
[2017-08-09] MEDS: Gabapentin CAP(*) 300 MG PO SCH ×3 (08:29→21:01)
[2017-08-09] MEDS: PTO:Mesalamine (NF) 1.2 GM TAB PO SCH ×2 (08:30→21:02)
[2017-08-09] MEDS: CMC:Cyclosporine 0.05% OPHTH (NF) 0.4 ML VIAL BOTH EYES SCH ×2 (08:30→21:04)
[2017-08-09] MEDS: PTO:Nebivolol (NF) 10 MG TAB PO SCH (08:30)
[2017-08-09] MEDS: UCERIS PO PRN (08:30)
[2017-08-09] MEDS: SYSTANE BOTH EYES SCH ×2 (08:36→21:01)
[2017-08-09 10:05] LABS: Hematocrit 34 % (35-47); Hemoglobin 11.4 g/dl (12.0-16.0); Mean Corpuscular HGB Conc 33 g/dl (31-36); Mean Corpuscular Hemoglobin 33 pg (27-31); Mean Corpuscular Volume 99 fL (80-97); Mean Platelet Volume 8 um3 (7.4-10.4); Red Blood Count 3.47 10^6/ul (4.0-5.4); Red Cell Distribution Width 16 % (10.5-15); White Blood Count 10.7 10^3/ul (3.5-10.8)
[2017-08-09 10:07] LABS: Add Diff/Slide Review? Slide Review Added; Comments Flag Yes
[2017-08-09 10:21] LABS: Albumin 3.2 g/dL (3.2-5.2); BUN/Creatinine Ratio 27.6 (8-20); Calcium 8.4 mg/dL (8.6-10.3); EGFR Non-African American 55.2 (>60); Globulin 2.6 g/dL (2-4); Potassium 4.3 mmol/L (3.5-5.0); Total Bilirubin 0.8 mg/dL (0.2-1.0); Total Protein 5.8 g/dL (6.4-8.9)
[2017-08-09] MEDS: Digoxin TAB* 0.25 MG PO SCH (17:06)
[2017-08-09] MEDS: Atorvastatin* 10 MG TAB PO SCH (17:06)
[2017-08-10] MEDS: HYDROcodone/ACETAMIN 5-325 MG* 1 TAB PO PRN ×4 (03:00→18:33)
[2017-08-10] MEDS: Spironolactone TAB* 25 MG PO SCH (09:17)
[2017-08-10] MEDS: PTO:Mesalamine (NF) 1.2 GM TAB PO SCH ×2 (09:17→21:08)
[2017-08-10] MEDS: Calcium/Vitamin D TAB 250/125* TAB PO SCH (09:17)
[2017-08-10] MEDS: PTO:Nebivolol (NF) 10 MG TAB PO SCH (09:17)
[2017-08-10] MEDS: Furosemide TAB* 20 MG PO SCH (09:17)
[2017-08-10] MEDS: UCERIS PO PRN (09:17)
[2017-08-10] MEDS: predniSONE TAB* 10 MG PO SCH (09:18)
[2017-08-10] MEDS: CMC:Cyclosporine 0.05% OPHTH (NF) 0.4 ML VIAL BOTH EYES SCH ×2 (09:18→21:07)
[2017-08-10] MEDS: Apixaban* 5 MG TAB PO SCH ×2 (09:18→21:07)
[2017-08-10] MEDS: Lisinopril TAB* 10 MG PO SCH (09:18)
[2017-08-10] MEDS: Gabapentin CAP(*) 300 MG PO SCH ×3 (09:19→21:07)
[2017-08-10] MEDS: SYSTANE BOTH EYES SCH ×2 (10:00→21:08)
[2017-08-10] MEDS: BETAMETHASONE VALERATE 0.1% TOPICAL SCH ×3 (12:36→21:08)
[2017-08-10] MEDS: Nystatin TOP POWDER* 15 GM BTL TOPICAL SCH ×2 (12:36→21:08)
[2017-08-10] MEDS: Atorvastatin* 10 MG TAB PO SCH (16:53)
[2017-08-10] MEDS: Digoxin TAB* 0.25 MG PO SCH (16:53)
[2017-08-11] MEDS: HYDROcodone/ACETAMIN 5-325 MG* 1 TAB PO PRN ×4 (00:14→20:56)
[2017-08-11] MEDS: Spironolactone TAB* 25 MG PO SCH (08:02)
[2017-08-11] MEDS: predniSONE TAB* 10 MG PO SCH (08:02)
[2017-08-11] MEDS: Lisinopril TAB* 10 MG PO SCH (08:03)
[2017-08-11] MEDS: Apixaban* 5 MG TAB PO SCH ×2 (08:03→20:59)
[2017-08-11] MEDS: Calcium/Vitamin D TAB 250/125* TAB PO SCH (08:03)
[2017-08-11] MEDS: Gabapentin CAP(*) 300 MG PO SCH ×3 (08:03→20:58)
[2017-08-11] MEDS: Furosemide TAB* 20 MG PO SCH (08:03)
[2017-08-11] MEDS: PTO:Nebivolol (NF) 10 MG TAB PO SCH (08:06)
[2017-08-11] MEDS: Nystatin TOP POWDER* 15 GM BTL TOPICAL SCH ×2 (08:07→21:48)
[2017-08-11] MEDS: PTO:Mesalamine (NF) 1.2 GM TAB PO SCH ×2 (08:07→21:00)
[2017-08-11] MEDS: BETAMETHASONE VALERATE 0.1% TOPICAL SCH ×4 (08:08→21:01)
[2017-08-11] MEDS: SYSTANE BOTH EYES SCH ×2 (08:09→21:00)
[2017-08-11] MEDS: CMC:Cyclosporine 0.05% OPHTH (NF) 0.4 ML VIAL BOTH EYES SCH ×2 (08:09→21:00)
[2017-08-11] MEDS: traMADol TAB* 50 MG PO PRN ×2 (10:20→17:19)
[2017-08-11] MEDS: Digoxin TAB* 0.25 MG PO SCH (17:08)
[2017-08-11] MEDS: Atorvastatin* 10 MG TAB PO SCH (17:08)
[2017-08-12] MEDS: HYDROcodone/ACETAMIN 5-325 MG* 1 TAB PO PRN ×4 (05:37→20:56)
[2017-08-12] MEDS: Calcium/Vitamin D TAB 250/125* TAB PO SCH (08:03)
[2017-08-12] MEDS: Spironolactone TAB* 25 MG PO SCH (08:03)
[2017-08-12] MEDS: Lisinopril TAB* 10 MG PO SCH (08:03)
[2017-08-12] MEDS: Apixaban* 5 MG TAB PO SCH ×2 (08:03→20:55)
[2017-08-12] MEDS: predniSONE TAB* 10 MG PO SCH (08:04)
[2017-08-12] MEDS: Furosemide TAB* 20 MG PO SCH (08:04)
[2017-08-12] MEDS: Gabapentin CAP(*) 300 MG PO SCH ×3 (08:04→20:55)
[2017-08-12] MEDS: PTO:Mesalamine (NF) 1.2 GM TAB PO SCH ×2 (08:06→22:16)
[2017-08-12] MEDS: PTO:Nebivolol (NF) 10 MG TAB PO SCH (08:06)
[2017-08-12] MEDS ORDERED: predniSONE TAB* 5 MG PO SCH (09:00)
[2017-08-12] MEDS: SYSTANE BOTH EYES SCH ×2 (11:55→22:18)
[2017-08-12] MEDS: CMC:Cyclosporine 0.05% OPHTH (NF) 0.4 ML VIAL BOTH EYES SCH ×2 (11:55→22:16)
[2017-08-12] MEDS: BETAMETHASONE VALERATE 0.1% TOPICAL SCH ×3 (11:55→20:57)
[2017-08-12] MEDS: Nystatin TOP POWDER* 15 GM BTL TOPICAL SCH ×2 (13:17→22:17)
[2017-08-12] MEDS: Digoxin TAB* 0.25 MG PO SCH (16:51)
[2017-08-12] MEDS: Atorvastatin* 10 MG TAB PO SCH (16:51)
[2017-08-12] MEDS: traMADol TAB* 50 MG PO PRN (18:21)
[2017-08-12] MEDS: UCERIS PO PRN (18:21)
[2017-08-13] MEDS: HYDROcodone/ACETAMIN 5-325 MG* 1 TAB PO PRN ×3 (04:18→19:00)
[2017-08-13] MEDS: Gabapentin CAP(*) 300 MG PO SCH ×3 (09:34→21:26)
[2017-08-13] MEDS: Lisinopril TAB* 10 MG PO SCH (09:35)
[2017-08-13] MEDS: Furosemide TAB* 20 MG PO SCH (09:35)
[2017-08-13] MEDS: predniSONE TAB* 10 MG PO SCH (09:35)
[2017-08-13] MEDS: Spironolactone TAB* 25 MG PO SCH (09:35)
[2017-08-13] MEDS: Apixaban* 5 MG TAB PO SCH ×2 (09:35→21:26)
[2017-08-13] MEDS: Calcium/Vitamin D TAB 250/125* TAB PO SCH (09:35)
[2017-08-13] MEDS: PTO:Nebivolol (NF) 10 MG TAB PO SCH (09:36)
[2017-08-13] MEDS: PTO:Mesalamine (NF) 1.2 GM TAB PO SCH ×2 (09:36→21:32)
[2017-08-13] MEDS: SYSTANE BOTH EYES SCH ×2 (11:19→21:56)
[2017-08-13] MEDS: CMC:Cyclosporine 0.05% OPHTH (NF) 0.4 ML VIAL BOTH EYES SCH ×2 (11:20→21:31)
[2017-08-13] MEDS: Nystatin TOP POWDER* 15 GM BTL TOPICAL SCH ×2 (11:28→21:32)
[2017-08-13] MEDS: BETAMETHASONE VALERATE 0.1% TOPICAL SCH ×3 (11:28→21:26)
[2017-08-13] MEDS: Digoxin TAB* 0.25 MG PO SCH (16:44)
[2017-08-13] MEDS: Atorvastatin* 10 MG TAB PO SCH (16:45)
[2017-08-13] MEDS: traMADol TAB* 50 MG PO PRN (21:25)
[2017-08-14] MEDS: HYDROcodone/ACETAMIN 5-325 MG* 1 TAB PO PRN ×4 (00:20→20:12)
[2017-08-14] MEDS: CMC:Cyclosporine 0.05% OPHTH (NF) 0.4 ML VIAL BOTH EYES SCH ×2 (08:38→20:11)
[2017-08-14] MEDS: Nystatin TOP POWDER* 15 GM BTL TOPICAL SCH ×2 (08:38→20:11)
[2017-08-14] MEDS: PTO:Mesalamine (NF) 1.2 GM TAB PO SCH ×2 (08:39→20:12)
[2017-08-14] MEDS: BETAMETHASONE VALERATE 0.1% TOPICAL SCH ×3 (08:39→20:12)
[2017-08-14] MEDS: Lisinopril TAB* 10 MG PO SCH (08:40)
[2017-08-14] MEDS: predniSONE TAB* 10 MG PO SCH (08:40)
[2017-08-14] MEDS: Apixaban* 5 MG TAB PO SCH ×2 (08:40→20:11)
[2017-08-14] MEDS: PTO:Nebivolol (NF) 10 MG TAB PO SCH (08:40)
[2017-08-14] MEDS: Gabapentin CAP(*) 300 MG PO SCH ×3 (08:40→20:11)
[2017-08-14] MEDS: Furosemide TAB* 20 MG PO SCH (08:40)
[2017-08-14] MEDS: Calcium/Vitamin D TAB 250/125* TAB PO SCH (08:40)
[2017-08-14] MEDS: Spironolactone TAB* 25 MG PO SCH (08:40)
[2017-08-14] MEDS: traMADol TAB* 50 MG PO PRN (11:24)
[2017-08-14] MEDS: SYSTANE BOTH EYES SCH ×2 (11:24→20:12)
[2017-08-14] MEDS: Digoxin TAB* 0.25 MG PO SCH (17:19)
[2017-08-14] MEDS: Atorvastatin* 10 MG TAB PO SCH (17:19)
[2017-08-15] MEDS: HYDROcodone/ACETAMIN 5-325 MG* 1 TAB PO PRN ×5 (01:37→21:52)
[2017-08-15] MEDS: BETAMETHASONE VALERATE 0.1% TOPICAL SCH ×3 (08:35→21:54)
[2017-08-15] MEDS: PTO:Nebivolol (NF) 10 MG TAB PO SCH (08:36)
[2017-08-15] MEDS: PTO:Mesalamine (NF) 1.2 GM TAB PO SCH ×2 (08:36→21:55)
[2017-08-15] MEDS: CMC:Cyclosporine 0.05% OPHTH (NF) 0.4 ML VIAL BOTH EYES SCH ×2 (08:36→21:54)
[2017-08-15] MEDS: Nystatin TOP POWDER* 15 GM BTL TOPICAL SCH ×2 (08:36→21:55)
[2017-08-15] MEDS: predniSONE TAB* 10 MG PO SCH (08:37)
[2017-08-15] MEDS: Gabapentin CAP(*) 300 MG PO SCH ×3 (08:37→21:53)
[2017-08-15] MEDS: Calcium/Vitamin D TAB 250/125* TAB PO SCH (08:37)
[2017-08-15] MEDS: Spironolactone TAB* 25 MG PO SCH (08:37)
[2017-08-15] MEDS: Furosemide TAB* 20 MG PO SCH (08:37)
[2017-08-15] MEDS: Lisinopril TAB* 10 MG PO SCH (08:37)
[2017-08-15] MEDS: Apixaban* 5 MG TAB PO SCH ×2 (08:37→21:53)
[2017-08-15] MEDS: SYSTANE BOTH EYES SCH ×2 (09:43→21:55)
--- NOTE | 2017-08-15 12:50 | PMRUTEAM ---
PMRU: Goals Current Status: Nursing: Current Status Skin Deviations [Abdominal Other Fold] Skin Deviations [Bilateral Rash Groin] Skin Deviations [Bilateral Rash Breast] Skin Deviation Description [ no redness noted Abdominal Fold] Skin Deviation Description [ nystatin powder ordered for HS Bilateral Groin] Skin Deviation Description [ nystatin powder ordered for HS Bilateral Breast] Bladder Current Status urgency noted Bowel Current Status HX of collitis frequent BMs Nutrition Current Status adequate Physical Therapy: Current Status Bed Mobility Assistance Supervision Transfer Moblility Assistance Supervision Transfer/Bed Mobility Rolling Walker Recommended Devices Ambulation Assistance Supervision Ambulation Assistive Devices Rolling Walker Number of Feet Patient 100' Ambulated Stairs Assistance Supervision Stairs Recommended Devices Two Rails Number of Stairs 5 Curb Not Tested Occupational Therapy: Current Status Upper Body Dressing Min Assist Lower Body Dressing Min Assist Bathing Min Assist Toileting Min Assist Toilet Transfer Contact Guard Assist Shower Transfer Contact Guard Assist Eating Independent Instrumental ADL dependent in IADLs Rec Therapy: Current Status Summary of Assessment and RT assessment complete and pt. is aware of Clinical Impression services. Pt. is open to continued leisure visits . Treatment Goals Pt. will engage in leisure activities while on the unit. Treatment Plan Provide RT services and encourage involvement. Social Work: Current Status Discharge Plan return home with home care svs and family support Potential for Family Training TBD Anticipated Discharge Home Destination Discharge With VNS and family support Nutrition: Current Status Monitoring Intake remains good: 75-100% of meals, eating independently. Regular soft formed BMs. Skin remains intact; low risk for breakdown per Nuno 19. No changes to recommend at this time. Goals: Physical Therapy: Initial Goals Bed Mobility Assistance Independent Transfer Mobility Assistance Independent Transfer/Bed Mobility Rolling Walker Recommended Devices Ambulation Independent Ambulation Recommended Devices Rolling Walker Ambulation Distance 150 Stairs Assistance Independent Stair Recommended Devices Two Rails Number of Stairs 10 Physical Therapy: Updated Goals Bed Mobility Assistance Independent Transfer Mobility Assistance Independent Transfer/Bed Mobility Rolling Walker Recommended Devices Ambulation Assistance Independent Ambulation Assistive Devices Rolling Walker Ambulation Distance (ft) 150 Stairs Assistance Independent Stairs Recommended Devices Two Rails Number of Stairs 10 Occupational Therapy: Initial Goals Goals to be Completed in (Days 10-14 days ) Upper Body Bathing Routine Modified Independent with Lower Body Bathing Routine Modified Independent with Upper Body Dressing Routine Modified Independent with Lower Body Dressing Routine Modified Independent with Toilet Hygeine and Clothing Modified Independent with Management Routine Toilet Transfer Routine Modified Independent with Step-In Shower Transfer Modified Independent with Routine Functional Transfers for ADL Modified Independent with Grooming Routine Modified Independent with Feeding Routine Modified Independent with Light Housekeeping Tasks Modified Independent with Nutrition: Goals Intervention Goals 1. adequate po intake to maintain lean body mass without add'l wt gain 2. regulation of bowel pattern without c/o excessive diarrhea (or constipation) Social Work: Goals Discharge Plan return home with home care svs and family support Potential for Family Training TBD Anticipated Discharge Home Destination Discharge With VNS and family support Care Plan: Care Plan ADL's - Improve/Maintain Start: 08/04/17 15:50 Freq: DAILY Status: Active Target: Activity Type Activity Date Activity User E-Sign Co-Sign Detail Recorded Client Recorded Date Recorded By Document 08/14/17 15:37 [id number] [id number] 08/14/17 15:37 [id number] 08/14/17 15:37 PMRU Outcome: ADL's/ADL Transfers Orders/Interventions Occupational Therapy Evaluation & Treatment Patient to receive OT 5x/wk for 60-120 Therex min/day Self Care Management Group Therapy UE/LE ADL's with Assist Yes: mod I ADL Transfers with Assist Yes: mod I Toileting: Transfers,Clothing Management Yes: mod I ,Hygeine w/Assist Progression Toward Outcome/Goals Progressing Outcome/Goals Met Pt. continues to progress towards goals. Pt. demonstrates increased independence with STS and while ambulating. Pt . demonstrates increased balance during STS and while in standing. Cardiovascular- Improve/Maintain Start: 08/01/17 12:48 Freq: DAILY Status: Active Target: Activity Type Activity Date Activity User E-Sign Co-Sign Detail Recorded Client Recorded Date Recorded By Document 08/14/17 18:15 [id number] 08/14/17 18:19 [id number] 08/14/17 18:15 PMRU Outcome: Cardiovascular Vital Signs q Shift for 48hrs Then BID Yes Daily Weight Ordered No Current Cardiovascular Outcome/Goal Free of Abnormal Cardiac Symptoms Progression Toward Outcome/Goal Progressing Outcome/Goals Met Comment hx of AFIB DVT Prophylaxis- Improve/Maintain Start: 08/01/17 12:48 Freq: DAILY Status: Complete Target: Activity Type Activity Date Activity User E-Sign Co-Sign Detail Recorded Client Recorded Date Recorded By Document 08/14/17 18:15 [id number] 08/14/17 18:19 [id number] 08/14/17 18:15 PMRU Outcome: DVT Prophylaxis Outcome/Goals Remains Free of DVT Complies with DVT Prophylaxis /Treatment Outcome/Goals Met Remains Free of DVT Complies with DVT Prophylaxis /Treatment Discharge Planning - Improve/Maintain Start: 08/01/17 12:48 Freq: DAILY Status: Active Target: Activity Type Activity Date Activity User E-Sign Co-Sign Detail Recorded Client Recorded Date Recorded By Document 08/14/17 13:13 [id number] 08/14/17 13:14 [id number] 08/14/17 13:13 PMRU Outcome: Discharge Planning Identify Patient Needs yes Update Patient Family No Outcome/Goals Demonstrates Understanding of Discharge Plan Progression Toward Outcome/Goals Progressing Education-Improve/Maintain Start: 08/01/17 12:48 Freq: DAILY Status: Active Target: Activity Type Activity Date Activity User E-Sign Co-Sign Detail Recorded Client Recorded Date Recorded By Document 08/14/17 18:15 [id number] 08/14/17 18:19 [id number] 08/14/17 18:15 PMRU Outcome: Education Outcome/Goals Demonstrate/ Verbalize Understanding of Written Discharge Instructions Encourage Questions Progression Toward Outcome/Goals Progressing /GI-Improve/Maintain Start: 08/01/17 12:48 Freq: DAILY Status: Complete Target: Activity Type Activity Date Activity User E-Sign Co-Sign Detail Recorded Client Recorded Date Recorded By Document 08/14/17 18:15 [id number] 08/14/17 18:19 [id number] 08/14/17 18:15 PMRU Outcome: Genitourinary/ Gastrointestinal Genitourinary- Outcome/Goals Maintain/ Achieve Urinary Continence Remain Free of Hospital- Acquired UTI Gastrointestinal-Outcome/Goals Maintain/ Achieve Bowel Regularity in Accordance with Pt's Baseline Genitourinary- Outcome/Goals Met Maintain/ Achieve Urinary Continence Remain Free of Hospital- Acquired UTI Gastrointestinal-Outcome/Goals Met Maintain/ Achieve Bowel Regularity in Accordance with Pt's Baseline Medication Administration Start: 08/01/17 12:48 Freq: DAILY Status: Active Target: Activity Type Activity Date Activity User E-Sign Co-Sign Detail Recorded Client Recorded Date Recorded By Document 08/14/17 18:15 [id number] [email or web address] 08/14/17 18:19 [id number] 08/14/17 18:15 PMRU Outcome: Medication Administration Assess Patient Knowledge/Teach Med Yes Education for all Meds Outcome/Goals Patient Independent with Medication Administration at Home Demonstrates Understanding Progression Towards Outcome/Goals Progressing Is Patient Going Home on Lovenox? No Mobility- Improve/Maintain Start: 08/09/17 08:46 Freq: DAILY Status: Active Target: Activity Type Activity Date Activity User E-Sign Co-Sign Detail Recorded Client Recorded Date Recorded By Document 08/11/17 17:41 [id number] 08/11/17 17:41 [id number] 08/11/17 17:41 PMRU Outcome: Mobility Physical Therapy Evaluation and Yes Treatment Activity OOB with Assistance Yes WBAT Yes Device Yes Assistance Yes Patient to be seen 5x/wk for 60-120 min/ Therex day for: Mobility Training Gait Training W/C Mobility Balance Outcome/Goals Maintain/ Achieve Baseline Mobility Status Improve Mobility Status Demonstrates Proper Use of Assistive Devices Free from Complications of Immobility Progression Toward Outcome/Goals Progressing Bed Mobility Yes: independent Transfers Yes: independent with rolling walker. Gait x ft Yes: independent with rolling walker 150' Up/Down Stairs Yes: independent up/ down 10 stairs with 2 rails. Pain/Comfort- Improve/Maintain Start: 08/01/17 12:48 Freq: DAILY Status: Active Target: Activity Type Activity Date Activity User E-Sign Co-Sign Detail Recorded Client Recorded Date Recorded By Document 08/14/17 18:15 [id number] 08/14/17 18:19 [id number] 08/14/17 18:15 PMRU Outcome: Pain/Comfort Outcome/Goals Demonstrates Knowledge and Use of Available Comfort Measures Achieves Acceptable Comfort/Pain Level as Determined by Patient/Condit Maintain Comfort Level Allowing Patient to Fully Participate in Rehab Progression Toward Outcome/Goals Progressing Safety- Improve/Maintain Start: 08/01/17 12:48 Freq: DAILY Status: Complete Target: Activity Type Activity Date Activity User E-Sign Co-Sign Detail Recorded Client Recorded Date Recorded By Document 08/14/17 18:15 [id number] 08/14/17 18:19 [id number] 08/14/17 18:15 PMRU Outcome: Safety Outcome/Goals Cooperates with Safety Measures for Least Restrictive Environment Prevent Falls/ Injury Outcome/Goals Met Cooperates with Safety Measures for Least Restrictive Environment Prevent Falls/ Injury Medicine Note: Length of Stay: 3 days Anticipated Discharge Destination: Home Tentative Discharge Date: 08/18/17 Discharged to: Son's house
[2017-08-15] MEDS: UCERIS PO PRN (14:02)
[2017-08-15] MEDS: Digoxin TAB* 0.25 MG PO SCH (16:57)
[2017-08-15] MEDS: Atorvastatin* 10 MG TAB PO SCH (17:00)
[2017-08-16] MEDS: HYDROcodone/ACETAMIN 5-325 MG* 1 TAB PO PRN ×4 (03:25→21:39)
[2017-08-16 06:28] LABS: Hematocrit 30 % (35-47); Hemoglobin 10.3 g/dl (12.0-16.0); Mean Corpuscular HGB Conc 34 g/dl (31-36); Mean Corpuscular Hemoglobin 34 pg (27-31); Mean Corpuscular Volume 99 fL (80-97); Mean Platelet Volume 8 um3 (7.4-10.4); Red Blood Count 3.05 10^6/ul (4.0-5.4); Red Cell Distribution Width 17 % (10.5-15); White Blood Count 8.1 10^3/ul (3.5-10.8)
[2017-08-16 06:42] LABS: BUN/Creatinine Ratio 38.3 (8-20); Calcium 8.4 mg/dL (8.6-10.3); EGFR Non-African American 97.2 (>60); Globulin 2.7 g/dL (2-4); Potassium 4.4 mmol/L (3.5-5.0); Total Bilirubin 0.8 mg/dL (0.2-1.0); Total Protein 5.7 g/dL (6.4-8.9)
[2017-08-16 06:54] LABS: Add Diff/Slide Review? Slide Review Added; Comments Flag Yes
[2017-08-16] MEDS: Apixaban* 5 MG TAB PO SCH ×2 (08:47→20:16)
[2017-08-16] MEDS: BETAMETHASONE VALERATE 0.1% TOPICAL SCH ×3 (08:47→20:23)
[2017-08-16] MEDS: Calcium/Vitamin D TAB 250/125* TAB PO SCH (08:47)
[2017-08-16] MEDS: Furosemide TAB* 20 MG PO SCH (08:47)
[2017-08-16] MEDS: Nystatin TOP POWDER* 15 GM BTL TOPICAL SCH ×2 (08:47→20:22)
[2017-08-16] MEDS: Gabapentin CAP(*) 300 MG PO SCH ×3 (08:48→20:16)
[2017-08-16] MEDS: traMADol TAB* 50 MG PO PRN ×2 (08:48→15:11)
[2017-08-16] MEDS: Lisinopril TAB* 10 MG PO SCH (08:48)
[2017-08-16] MEDS: predniSONE TAB* 10 MG PO SCH (08:48)
[2017-08-16] MEDS: CMC:Cyclosporine 0.05% OPHTH (NF) 0.4 ML VIAL BOTH EYES SCH ×2 (08:49→20:18)
[2017-08-16] MEDS: PTO:Nebivolol (NF) 10 MG TAB PO SCH (08:50)
[2017-08-16] MEDS: PTO:Mesalamine (NF) 1.2 GM TAB PO SCH ×2 (08:50→20:23)
[2017-08-16] MEDS: Spironolactone TAB* 25 MG PO SCH (08:51)
[2017-08-16] MEDS: SYSTANE BOTH EYES SCH ×2 (08:51→20:23)
--- NOTE | 2017-08-16 15:36 | PN ---
Progress Note - Progress Note Date of Service: 08/16/17 Note: Linda visited. She is having a bit more left shoulder pain and had more trouble with her ADLs as a result. Therapy notes read and reviewed. She was able to ambulate today, with less difficulty. I spoke with Dr. Oliver, her orthopedic surgeon. He thinks surgery should wait until her return to [place]. He does not think it worth attempting to fix her acromion fracture in her left shoulder Laboratory Results - last 24 hr 08/16/17 08/16/17 05:33 05:33 WBC 8.1 RBC 3.05 L Hgb 10.3 L Hct 30 L MCV 99 H MCH 34 H MCHC 34 RDW 17 H Plt Count 197 MPV 8 Neut % (Auto) 92.7 H Lymph % (Auto) 3.8 L [place] % (Auto) 2.4 Eos % (Auto) 0.8 Baso % (Auto) 0.3 Absolute Neuts (auto) 7.5 Absolute Lymphs (auto) 0.3 L Absolute Monos (auto) 0.2 Absolute Eos (auto) 0.1 Absolute Basos (auto) 0 Absolute Nucleated RBC 0 Nucleated RBC % 0 Sodium 136 Potassium 4.4 Chloride 104 Carbon Dioxide 25 Anion Gap 7 BUN 23 Creatinine 0.60 Est GFR ( Amer) 125.0 Est GFR (Non-Af Amer) 97.2 BUN/Creatinine Ratio 38.3 H Glucose 103 H Calcium 8.4 L Total Bilirubin 0.80 AST 39 ALT 53 H Alkaline Phosphatase 288 H Total Protein 5.7 L Albumin 3.0 L Globulin 2.7 Albumin/Globulin Ratio 1.1 Vital Signs Temp Pulse Resp BP Pulse Ox 98.6 F 76 18 146/77 95 08/16/17 05:36 08/16/17 05:36 08/16/17 15:11 08/16/17 05:36 08/16/17 05:36 EXAM: LUNGS: Clear bilaterally HEART: S1, S2 ABDOMEN: Soft EXTREMITIES: decreased range of left shoulder ASSESSMENT/PLAN: 1. Pelvic fracture/Sacral ALA fracture: Continue PT/OT 2. Left shoulder acromion fracture: as above 3. DVT prophylaxis: Eliquis 4. Atrial fib: Eliquis/Digoxin 5. Ulcerative Colitis: stable at present 6. Peripheral neuropathy: prednisone
[2017-08-16] MEDS: Atorvastatin* 10 MG TAB PO SCH (16:36)
[2017-08-16] MEDS: Digoxin TAB* 0.25 MG PO SCH (16:58)
[2017-08-17] MEDS: HYDROcodone/ACETAMIN 5-325 MG* 1 TAB PO PRN ×2 (04:07→12:57)
[2017-08-17] MEDS: Furosemide TAB* 20 MG PO SCH (08:51)
[2017-08-17] MEDS: Apixaban* 5 MG TAB PO SCH ×2 (08:51→20:25)
[2017-08-17] MEDS: BETAMETHASONE VALERATE 0.1% TOPICAL SCH ×3 (08:51→20:27)
[2017-08-17] MEDS: Nystatin TOP POWDER* 15 GM BTL TOPICAL SCH ×2 (08:51→20:28)
[2017-08-17] MEDS: predniSONE TAB* 10 MG PO SCH (08:51)
[2017-08-17] MEDS: Calcium/Vitamin D TAB 250/125* TAB PO SCH (08:51)
[2017-08-17] MEDS: Spironolactone TAB* 25 MG PO SCH (08:52)
[2017-08-17] MEDS: traMADol TAB* 50 MG PO PRN (08:52)
[2017-08-17] MEDS: Lisinopril TAB* 10 MG PO SCH (08:52)
[2017-08-17] MEDS: Gabapentin CAP(*) 300 MG PO SCH ×3 (08:53→20:24)
[2017-08-17] MEDS: PTO:Mesalamine (NF) 1.2 GM TAB PO SCH ×2 (08:54→20:19)
[2017-08-17] MEDS: CMC:Cyclosporine 0.05% OPHTH (NF) 0.4 ML VIAL BOTH EYES SCH ×2 (08:54→20:24)
[2017-08-17] MEDS: SYSTANE BOTH EYES SCH ×2 (08:55→20:28)
[2017-08-17] MEDS: PTO:Nebivolol (NF) 10 MG TAB PO SCH (08:55)
--- NOTE | 2017-08-17 16:39 | PN ---
Progress Note - Progress Note Date of Service: 08/17/17 Note: Linda was visited along with her son, Armando. They went through family training today. She still needs substantial help with ADLs, specifically toileting and dressing. She also has some trouble with transfers. Her new discharge date will be August 22. She has been doing okay with her pain control. Her son would like to go over her medications the day before discharge. I did say that we will not taper completely off Prednisone by the time of discharge. This can be reviewed when she is back in [place]. I also explained that Dr. Oliver felt she would be better waiting until she was in [place] to have surgery on her left shoulder. A disc contianing the CT of her shoulder will be provided to the patient. Vital Signs Temp Pulse Resp BP Pulse Ox 98.2 F 88 20 146/77 94 08/17/17 15:27 08/17/17 15:27 08/17/17 15:27 08/17/17 15:27 08/17/17 15:30 EXAM: LUNGS: CTA HEART: S1, S2 ABDOMEN: Soft EXTREMITIES: Decreased ROM, left shoulder ASSESSMENT/PLAN: 1. Pelvic fracture/Sacral ALA fracture: Continue PT/OT 2. Left shoulder acromion fracture: as above 3. DVT prophylaxis: Eliquis 4. Atrial fib: Eliquis/Digoxin 5. Ulcerative Colitis: stable at present 6. Peripheral neuropathy: prednisone, 10 mg as above 7. Code Status: Full 8. Disposition: Home 08/22/17
[2017-08-17] MEDS: Atorvastatin* 10 MG TAB PO SCH (16:53)
[2017-08-17] MEDS: Digoxin TAB* 0.25 MG PO SCH (16:54)
[2017-08-18] MEDS: HYDROcodone/ACETAMIN 5-325 MG* 1 TAB PO PRN ×3 (01:31→13:00)
[2017-08-18] MEDS: CMC:Cyclosporine 0.05% OPHTH (NF) 0.4 ML VIAL BOTH EYES SCH ×2 (09:09→20:35)
[2017-08-18] MEDS: PTO:Mesalamine (NF) 1.2 GM TAB PO SCH ×2 (09:10→20:36)
[2017-08-18] MEDS: Spironolactone TAB* 25 MG PO SCH (09:10)
[2017-08-18] MEDS: PTO:Nebivolol (NF) 10 MG TAB PO SCH (09:10)
[2017-08-18] MEDS: Apixaban* 5 MG TAB PO SCH ×2 (09:11→20:35)
[2017-08-18] MEDS: predniSONE TAB* 10 MG PO SCH (09:11)
[2017-08-18] MEDS: Furosemide TAB* 20 MG PO SCH (09:11)
[2017-08-18] MEDS: Gabapentin CAP(*) 300 MG PO SCH ×3 (09:11→20:33)
[2017-08-18] MEDS: Lisinopril TAB* 10 MG PO SCH (09:11)
[2017-08-18] MEDS: Calcium/Vitamin D TAB 250/125* TAB PO SCH (09:11)
[2017-08-18] MEDS: Nystatin TOP POWDER* 15 GM BTL TOPICAL SCH ×2 (09:12→20:37)
[2017-08-18] MEDS: SYSTANE BOTH EYES SCH ×2 (09:12→20:37)
[2017-08-18] MEDS: BETAMETHASONE VALERATE 0.1% TOPICAL SCH ×3 (09:12→20:35)
--- NOTE | 2017-08-18 11:10 | PN ---
Progress Note - Progress Note Date of Service: 08/18/17 Note: Pt visited. Therapy and nursing notes reviewed. She believes her pain is well- controlled now. She thinks when she required more pain medications in the past it made her confused. She is ok now. No chest pain, shortness or breath or abdominal pain. She is making progress to go home on Monday, with focus on toileting hygiene. Temp Pulse Resp BP Pulse Ox 98.0 F 71 18 156/64 95 08/18/17 06:20 08/18/17 06:20 08/18/17 09:27 08/18/17 06:20 08/18/17 06:20 PE: General: no acute distress. Alert and appropriate. Lungs: clear to auscultation bilaterally. CV: irregularly irregular. Abdomen: soft, non-tender, non-distended. Ext: No edema. Legs JERMAINE wrapped. Neuro: Tremor of head and body noted. Patient reports this started 6 months ago and she has been working with her neurologist at home. She got botox for it once and plans to continue trial once she returns home. Assessment/Plan: 77 yo woman with pelvic/sacral ala fractures and left AC fracture 1. Pelvic fracture/Sacral ALA fracture: wbat. Continue PT/OT 2. Left shoulder acromion fracture: to follow-up with orthopedics in [place]. She needs to take copies of images with her at discharge. 3. DVT prophylaxis: Eliquis 4. Atrial fib: Eliquis/Digoxin 5. Ulcerative Colitis: stable at present 6. Peripheral neuropathy: prednisone 10 mg daily and taper further once home in [place]. Per patient this has been also treated with IVIg in the past with her neurologist. Follow-up with neurologist in [place]. 7. Code Status/Advanced Directives: Full code. 8. Disposition: Home 08/22/17
[2017-08-18 14:20] LABS: Urine Bacteria 1+ (Absent); Urine Bilirubin Negative (Negative); Urine Glucose Negative (Negative); Urine Nitrite Positive (Negative)
[2017-08-18] MEDS: Levofloxacin TAB* 250 MG PO SCH (15:34)
[2017-08-18] MEDS: Atorvastatin* 10 MG TAB PO SCH (17:42)
[2017-08-18] MEDS: Digoxin TAB* 0.25 MG PO SCH (17:42)
[2017-08-19] MEDS: Phenazopyridine TAB* 100 MG PO PRN (00:11)
[2017-08-19] MEDS: HYDROcodone/ACETAMIN 5-325 MG* 1 TAB PO PRN ×2 (06:32→16:06)
[2017-08-19] MEDS: CMC:Cyclosporine 0.05% OPHTH (NF) 0.4 ML VIAL BOTH EYES SCH ×2 (10:08→22:11)
[2017-08-19] MEDS: Spironolactone TAB* 25 MG PO SCH (10:09)
[2017-08-19] MEDS: Calcium/Vitamin D TAB 250/125* TAB PO SCH (10:09)
[2017-08-19] MEDS: BETAMETHASONE VALERATE 0.1% TOPICAL SCH ×3 (10:09→22:33)
[2017-08-19] MEDS: PTO:Nebivolol (NF) 10 MG TAB PO SCH (10:09)
[2017-08-19] MEDS: PTO:Mesalamine (NF) 1.2 GM TAB PO SCH ×2 (10:09→22:35)
[2017-08-19] MEDS: Furosemide TAB* 20 MG PO SCH (10:09)
[2017-08-19] MEDS: Lisinopril TAB* 10 MG PO SCH (10:10)
[2017-08-19] MEDS: predniSONE TAB* 10 MG PO SCH (10:10)
[2017-08-19] MEDS: Apixaban* 5 MG TAB PO SCH ×2 (10:10→22:12)
[2017-08-19] MEDS: Gabapentin CAP(*) 300 MG PO SCH ×3 (10:10→22:10)
[2017-08-19] MEDS: traMADol TAB* 50 MG PO PRN (10:10)
[2017-08-19] MEDS: Nystatin TOP POWDER* 15 GM BTL TOPICAL SCH ×2 (10:12→22:12)
[2017-08-19] MEDS: SYSTANE BOTH EYES SCH ×2 (10:32→22:35)
--- NOTE | 2017-08-19 10:40 | PN ---
Progress Note - Progress Note Date of Service: 08/19/17 Note: Patient visited. Nursing and therapy notes reviewed. Yesterday Linda seemed a bit off with some confusion and also not moving as well as she had. She acknowledges feeling her legs were weaker. Urinalysis was concerning for UTI and levaquin was started. Later in the evening I was called because she developed urine frequency. She thought it was from the levaquin. Pyridium was ordered. Frequency continued through night but she feels now it has quieted down. She also feels now that her legs are better and staff reports she is moving easier today. She plans to walk with staff later today. She denies any confusion, but was upset her room was moved closer to the nursing station. No chest pain, shortness of breath or abdominal pain. She is having normal bowel movements. Temp Pulse Resp BP Pulse Ox 98.7 F 85 18 147/78 93 08/19/17 06:36 08/19/17 06:36 08/19/17 10:10 08/19/17 06:36 08/19/17 06:36 PE: General: no acute distress. Alert and appropriate. Lungs: clear to auscultation bilaterally. CV: irregularly irregular. Abdomen: soft, non-tender, non-distended. Ext: No edema. Legs JERMAINE wrapped. Neuro: Tremor not so evident today, but she is reclined in bed. Laboratory Results - last 24 hr 08/18/17 14:00 Urine Color Yellow Urine Appearance Cloudy Urine pH 5.0 Ur Specific [place] 1.012 Urine Protein Negative Urine Ketones Negative Urine Blood Negative Urine Nitrate Positive H Urine Bilirubin Negative Urine Urobilinogen Negative Ur Leukocyte Esterase Negative Urine WBC (Auto) 2+(11-20/hpf) H Urine RBC (Auto) Absent Ur Squamous Epith Cells Present H Urine Bacteria 1+ H Hyaline Casts Present H Urine Glucose Negative Microbiology 08/18/17 14:00 Urine Culture - Preliminary Urine Klebsiella Pneumoniae Assessment/Plan: 77 yo woman with pelvic/sacral ala fractures and left AC fracture. Recurrent UTI. 1. Pelvic fracture/Sacral ALA fracture: wbat. Continue PT/OT 2. Left shoulder acromion fracture: to follow-up with orthopedics in [place]. She needs to take copies of images with her at discharge. 3. UTI - I educated her that urine frequency is from the UTI. She was treated for UTI with klebsiella pneumoniae at admission as well with levaquin which it was sensitive to. Continue current levaquin 250mg qday. Day #2 today. Await culture sensitivities. I will stop pyridium tomorrow. I encouraged her to drink adequate fluids. 4. DVT prophylaxis: Eliquis 5. Atrial fib: Eliquis/Digoxin 6. Ulcerative Colitis: stable at present 7. Peripheral neuropathy: prednisone 10 mg daily and taper further once home in [place]. Per patient this has been also treated with IVIg in the past with her neurologist. Follow-up with neurologist in [place]. 8. Code Status/Advanced Directives: Full code. 9. Disposition: Home 08/22/17
[2017-08-19] MEDS: Levofloxacin TAB* 250 MG PO SCH (15:05)
[2017-08-19] MEDS: Digoxin TAB* 0.25 MG PO SCH (16:05)
[2017-08-19] MEDS: Atorvastatin* 10 MG TAB PO SCH (16:06)
[2017-08-20] MEDS: HYDROcodone/ACETAMIN 5-325 MG* 1 TAB PO PRN ×4 (01:28→21:58)
[2017-08-20] MEDS: PTO:Mesalamine (NF) 1.2 GM TAB PO SCH ×2 (10:01→21:59)
[2017-08-20] MEDS: CMC:Cyclosporine 0.05% OPHTH (NF) 0.4 ML VIAL BOTH EYES SCH ×2 (10:02→21:58)
[2017-08-20] MEDS: PTO:Nebivolol (NF) 10 MG TAB PO SCH (10:02)
[2017-08-20] MEDS: BETAMETHASONE VALERATE 0.1% TOPICAL SCH ×3 (10:03→21:58)
[2017-08-20] MEDS: Nystatin TOP POWDER* 15 GM BTL TOPICAL SCH ×2 (10:03→21:59)
[2017-08-20] MEDS: Lisinopril TAB* 10 MG PO SCH (10:03)
[2017-08-20] MEDS: Gabapentin CAP(*) 300 MG PO SCH ×3 (10:03→21:57)
[2017-08-20] MEDS: Spironolactone TAB* 25 MG PO SCH (10:03)
[2017-08-20] MEDS: Apixaban* 5 MG TAB PO SCH ×2 (10:03→21:57)
[2017-08-20] MEDS: Calcium/Vitamin D TAB 250/125* TAB PO SCH (10:04)
[2017-08-20] MEDS: Phenazopyridine TAB* 100 MG PO PRN (10:04)
[2017-08-20] MEDS: Furosemide TAB* 20 MG PO SCH (10:04)
[2017-08-20] MEDS: predniSONE TAB* 10 MG PO SCH (10:04)
--- NOTE | 2017-08-20 11:00 | RAD ---
HISTORY: Right lower lobe rales COMPARISONS: None VIEWS: 2: Frontal and lateral views of the chest. FINDINGS: CARDIOMEDIASTINAL SILHOUETTE: The cardiomediastinal silhouette is normal. ANDREW: The andrew are normal. PLEURA: The costophrenic angles are sharp. No pleural abnormalities are noted. LUNG PARENCHYMA: There is confluent alveolar opacification of the left lower lobe and lingula with patchy alveolar opacification of the right lung base ABDOMEN: The upper abdomen is clear. There is no subphrenic gas. BONES AND SOFT TISSUES: No bone or soft tissue abnormalities are noted. OTHER: None. IMPRESSION: LEFT LOWER LUNG CONSOLIDATION WITH PATCHY ATELECTASIS VERSUS CONSOLIDATION OF THE RIGHT LUNG BASE. RECOMMEND FOLLOW-UP UNTIL RESOLUTION TO EXCLUDE UNDERLYING PULMONARY PARENCHYMAL PATHOLOGY
[2017-08-20] MEDS: SYSTANE BOTH EYES SCH ×2 (11:02→21:59)
--- NOTE | 2017-08-20 11:55 | PN ---
Progress Note - Progress Note Date of Service: 08/20/17 Note: Patient visited. Therapy and nursing notes reviewed. Today she feels exhausted and weak all over. She has a poor appetite. No nausea or vomiting. She thinks she is keeping up with fluids. No cough. No chest pain or shortness or breath. No changes in her "neuropathy." Staff notes it is harder for her to transfer. When she is sitting up her tremor is apparent, but it is less when she is in bed. This is not new. She had to urinate twice in 30 minutes this morning, but yesterday that seemed better. Vital Signs 08/19/17 08/19/17 08/19/17 12:10 15:05 15:13 Temperature Pulse Rate Respiratory 18 16 16 Rate Blood Pressure (mmHg) O2 Sat by Pulse Oximetry 08/19/17 08/19/17 08/19/17 16:05 16:06 16:32 Temperature 98.8 F Pulse Rate 82 80 Respiratory 22 22 Rate Blood Pressure 111/71 (mmHg) O2 Sat by Pulse 94 Oximetry 08/19/17 08/19/17 08/19/17 16:44 18:06 22:10 Temperature Pulse Rate Respiratory 18 18 18 Rate Blood Pressure (mmHg) O2 Sat by Pulse Oximetry 08/20/17 08/20/17 08/20/17 00:10 01:28 03:28 Temperature Pulse Rate Respiratory 16 25 15 Rate Blood Pressure (mmHg) O2 Sat by Pulse Oximetry 08/20/17 08/20/17 08/20/17 06:23 07:47 09:47 Temperature 98.6 F Pulse Rate 79 Respiratory 20 18 22 Rate Blood Pressure 139/60 (mmHg) O2 Sat by Pulse 96 Oximetry 08/20/17 08/20/17 10:01 10:03 Temperature 98.9 F Pulse Rate Respiratory 22 22 Rate Blood Pressure 101/46 (mmHg) O2 Sat by Pulse 91 Oximetry PE: General: no acute distress. Alert and appropriate. Lungs: inspiratory crackles in right base and increased transmission on the left. CV: irregularly irregular. Abdomen: soft, non-tender, non-distended. Ext: No edema. Neuro: Tremor evident when in chair, but not so evident later when I saw her again in bed. Motor 5/5 bilateral upper and lower extremities. Microbiology 08/18/17 14:00 Urine Culture - Final Urine Klebsiella Pneumoniae Chest x-ray done this morning showed confluent alveolar opacification of the LLL and lingula; patchy alveolar opacification of the right lung base. Labs drawn cbc and p33. Assessment/Plan: 77 yo woman with pelvic/sacral ala fractures and left AC fracture. Recurrent UTI. Possible Pneumonia. 1. Pelvic fracture/Sacral ALA fracture: wbat. Continue PT/OT 2. Left shoulder acromion fracture: to follow-up with orthopedics in [place]. She needs to take copies of images with her at discharge. 3. ID: Being treated for klebsiella pneumoniae UTI with Levaquin but CXR concerning for left greater than right pneumonia vs atelectasis. I ordered incentive spirometer and increased levaquin to 500mg qday starting today. May need O2 prn. d/c pyridium. 4. Fatigue: I suspect this is linked to the ID issues above. f/u labs. 5. DVT prophylaxis: Eliquis 6. Atrial fib: Eliquis/Digoxin 7. Ulcerative Colitis: stable at present 8. Peripheral neuropathy: prednisone 10 mg daily and taper further once home in [place]. Per patient this has been also treated with IVIg in the past with her neurologist. Follow-up with neurologist in [place]. 9. Code Status/Advanced Directives: Full code. 10. Disposition: ? Home 08/22/17
[2017-08-20] MEDS ORDERED: Levofloxacin TAB* 250 MG PO SCH (12:00)
[2017-08-20 12:01] LABS: Add Diff/Slide Review? Slide Review Added; Comments Flag Yes; Hematocrit 33 % (35-47); Hemoglobin 10.9 g/dl (12.0-16.0); Mean Corpuscular HGB Conc 33 g/dl (31-36); Mean Corpuscular Hemoglobin 33 pg (27-31); Mean Corpuscular Volume 99 fL (80-97); Mean Platelet Volume 8 um3 (7.4-10.4); Red Blood Count 3.35 10^6/ul (4.0-5.4); Red Cell Distribution Width 17 % (10.5-15); White Blood Count 8.4 10^3/ul (3.5-10.8)
[2017-08-20 12:19] LABS: Albumin 3.2 g/dL (3.2-5.2); BUN/Creatinine Ratio 21.2 (8-20); Calcium 8.6 mg/dL (8.6-10.3); EGFR African American 70.1 (>60); EGFR Non-African American 54.5 (>60); Globulin 3.1 g/dL (2-4); Potassium 4.2 mmol/L (3.5-5.0); Total Protein 6.3 g/dL (6.4-8.9)
[2017-08-20 12:34] LABS: Immature Granulocytes 7 % (0-9); Metamyelocytes % 1 % (0-2); Myelocytes % 3 % (0-1); Neutrophil % 82 % (38-83); Polychromasia 1+
[2017-08-20] MEDS ORDERED: Levofloxacin TAB* 500 MG PO SCH (13:00)
[2017-08-20 13:55] LABS: C Reactive Protein 164.02 mg/L (< 5.00)
[2017-08-20] MEDS ORDERED: Vancomycin per Pharmacy* NOTE FOLLOW UP PRN (14:36)
[2017-08-20] MEDS: traMADol TAB* 50 MG PO PRN (14:36)
[2017-08-20] MEDS ORDERED: Vancomycin(*) 1,000 MG in NS 0.9% 250 ML* 250 ML IVPB ONE (15:00)
[2017-08-20] MEDS: Cefepime(*) 1 GM in NS 0.9% 50 ML* 50 ML IVPB SCH (15:48)
[2017-08-20] MEDS: Atorvastatin* 10 MG TAB PO SCH (16:29)
[2017-08-20] MEDS: Digoxin TAB* 0.25 MG PO SCH (16:29)
--- NOTE | 2017-08-21 00:37 | CONS ---
CC: Dr. Shirley Carreno * HOSPITAL MEDICINE CONSULTATION REPORT: DATE OF CONSULT: 08/20/17 ATTENDING PHYSICIAN: Dr. Shirley Carreno. CONSULTING PHYSICIAN: Dr. Santy Red (dictation provided by Syeda Abreu NP) . CHIEF COMPLAINT: Weakness, generalized. HISTORY OF PRESENT ILLNESS: Ms. Edmondson is a 77-year-old female with a past medical history of peripheral neuropathy for which she apparently gets IVIG infusions and chronic prednisone, tremor which is attributed to the peripheral neuropathy, atrial fibrillation on chronic Eliquis, and ulcerative colitis, for whom Hospital medicine has been consulted on with concern for fatigue. Ms. Edmondson was originally admitted to our hospital on 07/28/17. She is from [place] , but was displaced with [place]. She had fallen on 06/21/17 and developed a fractured pelvis. Pelvis CT in our emergency room showed an osteopenic comminuted parasymphyseal fracture of the left superior and inferior pubic rami and nondisplaced fracture of the left sacral ala extending to the SI joint. The patient was seen in consultation by PT/OT and orthopedic surgery. No surgery was indicated, but the patient was ultimately transferred over to the rehabilitation floor of the hospital for rehabilitation after the fracture. The patient was transitioned there on 08/01/17 and is remained there, working with physical therapy. Of note that on 07/29/17, she had a urinalysis, which was positive for nitrite and bacteria with a Klebsiella pneumoniae confirmed on culture. For this urinary tract infection, she was treated with Augmentin, which the culture suggested it was sensitive too. On 08/18/17, the patient was having frequent urinations and therefore, the UA was repeated again showing positive nitrite and positive bacteria, again with Klebsiella pneumoniae greater than 100,000. At that point, she was started on Levaquin. Today, on , it was noted that the patient required assist x2 for walking which was unusual. The patient had previously been walking with much more independence but today she complained of extreme fatigue and weakness. Because of this, the patient went for a chest x-ray, which showed "left lower lung consolidation with patchy atelectasis, also with consolidation of the right lung base." She had labs, which showed no leukocytosis and bands of 3. Her basic metabolic panel was unremarkable except for a persistent elevation in her alk phos. She denied any cough, fever, chest pain, dyspnea. Her vitals are stable. She is afebrile. PAST MEDICAL HISTORY: 1. Peripheral neuropathy with question of treatment with prednisone and IVIG per Dr. Alvarez, Neurologist in [place]. 2. Atrial fibrillation, on chronic Eliquis therapy. 3. Ulcerative colitis, well controlled. 4. Hypertension. 5. Hyperlipidemia. MEDICATIONS: On the PMRU are: 1. Systane drops 1 drop both eyes b.i.d. 2. Tylenol p.r.n. 3. Apixaban 5 mg p.o. b.i.d. 4. Atorvastatin 10 mg p.o. daily. 5. Betamethasone topically t.i.d. 6. Bisacodyl/Dulcolax suppository 10 mg per rectum daily p.r.n. 7. Calcium with vitamin D 1 tab p.o. daily. 8. Cyclosporin 0.05% one drop both eyes q.12 hours. 9. Digoxin 0.25 mg p.o. daily. 10. Docusate 100 mg p.o. b.i.d. p.r.n. 11. Furosemide 20 mg p.o. daily. 12. Gabapentin 600 mg p.o. t.i.d. 13. Hydrocodone and acetaminophen 2 tabs p.o. q.4 hours p.r.n. 14. Lisinopril 10 mg p.o. daily. 15. Mesalamine 2.4 g p.o. b.i.d. 16. Nebivolol 10 mg p.o. daily. 17. Budesonide 9 mg daily p.r.n. diarrhea. 18. Nystatin as needed. 19. Senna 2 tabs p.o. at bedtime p.r.n. 20. Spironolactone 25 mg p.o. daily. 21. Prednisone 10 mg p.o. daily. 22. Tramadol 50 mg p.o. q.6 hours p.r.n. ALLERGIES: To SULFA ANTIBIOTICS. FAMILY HISTORY: The patient reports that her mom had multiple myeloma and her dad related to a stroke. SOCIAL HISTORY: The patient states she was a smoker from age 18 to age 22. She drinks alcohol very rarely. No reported drug use. She is here in [place] with her son, who is her healthcare proxy. REVIEW OF SYSTEMS: A 14-point review of systems was completed with Ms. Edmondson and all those not mentioned above were negative. PHYSICAL EXAM: Vital Signs: Temperature 98.9, pulse rate 82, respiratory rate 22, O2 saturation 91% on room air, and blood pressure 101/46. General: Ms. Edmondson is lying in the bed. She is in no acute distress. Neuro: She is alert. She is oriented x3. She moves all extremities equally. There is no facial asymmetry or focal weakness. Extraocular movements are intact. The patient has a pronounced tremor in bilateral upper extremities. She is unable to lift at the shoulder about 50 degrees and reports rotator cuff injuries bilaterally. Heart: S1, S2. No murmur, rub, or gallop and regular. Lungs are clear to auscultation bilaterally with no accessory muscle use and good aeration. The abdomen is soft, nontender with bowel sounds positive x4. Extremities: No cyanosis or edema. Skin is intact. DIAGNOSTIC STUDIES/LAB DATA: Today, sodium 134, potassium 4.2, chloride 102, serum bicarbonate 19, BUN 21, creatinine 0.99, glucose 132. CRP 164.02. I will note that her CRP on 07/28/17 was 5.09. WBC 8.4, hemoglobin 10.9, hematocrit 33, and platelet count 236. Urine shows positive nitrite, 2+ white blood cells, and 1+ bacteria. Chest x-ray shows a prominent left-sided infiltrate with concern for one on the right as well. ASSESSMENT AND PLAN: Ms. Edmondson is a 77-year-old female, who originally was admitted to our hospital on 07/28/17 after sustaining a fall prior to leaving from [place] after [place]. She developed a pelvic fracture and sacral ala fracture and has been transitioned over to [facility] on 08/01/17 for rehabilitation. Along the way, Ms. Edmondson had been diagnosed with urinary tract infection with Klebsiella pneumoniae, originally treated with amoxicillin, now with Levaquin. Despite treatment for this, she presents with worsening weakness today. Chest x- ray shows concern for bilateral infiltrates and possible hospital-acquired pneumonia. Our recommendations are as follows: 1. Weakness: When I read the original H and P from Dr. Alireza Landeros, I note the patient at that time complained that her legs were "rubbery," so question how chronic this intermittent weakness is; however, it seems to be from the report of [facility] that the patient was much weaker today. Workup revealed that she had significant infiltrate especially on the right lower lobe of her lung via chest x- ray. She has no cough. She has no fever. She has no shortness of breath, but does have this weakness. I question whether or not she has hospital-acquired pneumonia. She has no leukocytosis, but she has a significant CRP at 164.02. Of course this could be related to the urinary tract infection, but seems less likely. Plan to treat for hospital-acquired pneumonia with cefepime and vancomycin. Plan to consult Dr. Ayala from Infectious Diseases tomorrow regarding antibiotics selection, duration, and route. 2. Urinary tract infection: Plan to treat with cefepime as noted above for consideration of hospital-acquired pneumonia. 3. Tremor with peripheral neuropathy: The patient states she has been on prednisone and IVIG treatment for these symptoms with no clear diagnosis. Plan to ask the nursing staff to request records from Dr. Alvarez at the [facility] in [place], [place] to clarify the indication for this medication. I will note that the prednisone is being weaned down. 4. Atrial fibrillation: The patient is rate controlled. She will continue her home Eliquis. 5. Ulcerative colitis: Continue home medications. 6. DVT prophylaxis: Per Dr. Carreno. 7. Code status is full code. TIME SPENT: Approximately 60 minutes were spent in the consultation of this patient, more than half of the time was spent with the patient at the bedside reviewing the events leading up to this hospitalization, performing the physical examination, and reviewing the plan of care. SYEDA ABREU NP [id number]/[facility] #: [id number] CORTNEY
[2017-08-21] MEDS: Cefepime(*) 1 GM in NS 0.9% 50 ML* 50 ML IVPB SCH ×2 (03:30→15:49)
[2017-08-21] MEDS ORDERED: Vancomycin(*) 1,250 MG in NS 0.9% 250 ML* 250 ML IVPB SCH (06:00)
[2017-08-21] MEDS: traMADol TAB* 50 MG PO PRN ×2 (06:13→14:13)
[2017-08-21 09:50] LABS: Hematocrit 29 % (35-47); Hemoglobin 9.8 g/dl (12.0-16.0); Mean Corpuscular HGB Conc 34 g/dl (31-36); Mean Corpuscular Hemoglobin 33 pg (27-31); Mean Corpuscular Volume 97 fL (80-97); Mean Platelet Volume 8 um3 (7.4-10.4); Red Blood Count 3.01 10^6/ul (4.0-5.4); Red Cell Distribution Width 17 % (10.5-15)
[2017-08-21 09:51] LABS: Add Diff/Slide Review? Slide Review Added; Comments Flag Yes
[2017-08-21 10:09] LABS: Calcium 8.3 mg/dL (8.6-10.3); EGFR African American 89.7 (>60); EGFR Non-African American 69.7 (>60); Potassium 4.3 mmol/L (3.5-5.0)
[2017-08-21 10:28] LABS: Eosinophils % 2 % (0-6); Immature Granulocytes 4 % (0-9); Metamyelocytes % 1 % (0-2); Myelocytes % 1 % (0-1); Neutrophil % 90 % (38-83); Polychromasia 1+
[2017-08-21] MEDS: Furosemide TAB* 20 MG PO SCH (10:50)
[2017-08-21] MEDS: Calcium/Vitamin D TAB 250/125* TAB PO SCH (10:50)
[2017-08-21] MEDS: Lisinopril TAB* 10 MG PO SCH (10:50)
[2017-08-21] MEDS: Apixaban* 5 MG TAB PO SCH ×2 (10:50→21:47)
[2017-08-21] MEDS: predniSONE TAB* 10 MG PO SCH (10:50)
[2017-08-21] MEDS: Spironolactone TAB* 25 MG PO SCH (10:51)
[2017-08-21] MEDS: PTO:Mesalamine (NF) 1.2 GM TAB PO SCH ×2 (10:51→21:49)
[2017-08-21] MEDS: Gabapentin CAP(*) 300 MG PO SCH ×3 (10:52→21:48)
[2017-08-21] MEDS: HYDROcodone/ACETAMIN 5-325 MG* 1 TAB PO PRN ×2 (10:53→21:48)
[2017-08-21] MEDS: CMC:Cyclosporine 0.05% OPHTH (NF) 0.4 ML VIAL BOTH EYES SCH ×2 (10:54→21:49)
[2017-08-21] MEDS: PTO:Nebivolol (NF) 10 MG TAB PO SCH (10:54)
[2017-08-21] MEDS: SYSTANE BOTH EYES SCH ×2 (10:54→21:49)
[2017-08-21] MEDS: Nystatin TOP POWDER* 15 GM BTL TOPICAL SCH ×2 (10:59→21:48)
[2017-08-21] MEDS: BETAMETHASONE VALERATE 0.1% TOPICAL SCH ×3 (11:00→21:47)
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
--- NOTE | 2017-08-21 17:10 | PN ---
Subjective Date of Service: 08/21/17 Interval History: This is a 77 yo female recovering from recent pubic rami fractures whom the hospitalist group was asked to see in consultation regarding a complaint of weakness. CXR demonstrated a large LLL infiltrate. Also recently treated for Klebsiella UTI. Patient was sleeping at the time of evaluation. Nurse reported only complaint was weakness. She was also noted to be mildly hypoxic and placed on 2L NC. Objective Active Medications: Acetaminophen (Tylenol Tab*) 650 mg PO Q6H PRN PRN Reason: FEVER/PAIN Last Admin: 08/08/17 05:37 Dose: 650 mg Hydrocodone Bitart/Acetaminophen ([place] 5-325 Tab*) 2 tab PO Q4H PRN PRN Reason: PAIN - SEVERE Last Admin: 08/21/17 10:53 Dose: 2 tab Apixaban (Eliquis*) 5 mg PO BID [facility] Last Admin: 08/21/17 10:50 Dose: 5 mg Atorvastatin Calcium (Lipitor*) 10 mg PO 1700 [facility] Last Admin: 08/20/17 16:29 Dose: 10 mg Betamethasone Valerate (Valisone 0.1% Cm(Nf)) 1 applic TOPICAL TID [facility] Last Admin: 08/21/17 14:15 Dose: Not Given Bisacodyl (Dulcolax Supp*) 10 mg [place] DAILY PRN PRN Reason: CONSTIPATION Calcium/Vitamin D (Oscal D Tab 250/125*) 1 tab PO DAILY [facility] Last Admin: 08/21/17 10:50 Dose: 1 tab Cyclosporine (Restasis 0.05% Oph) 1 drop BOTH EYES Q12HR [place] PRN Reason: Protocol Last Admin: 08/21/17 10:54 Dose: 1 drop Digoxin (Lanoxin Tab*) 0.25 mg PO 1700 [facility] Last Admin: 08/20/17 16:29 Dose: 0.25 mg Docusate Sodium (Colace Cap*) 100 mg PO BID PRN PRN Reason: CONSTIPATION Furosemide (Lasix Tab*) 20 mg PO DAILY [facility] Last Admin: 08/21/17 10:50 Dose: 20 mg Gabapentin (Neurontin Cap(*)) 600 mg PO TID [facility] Last Admin: 08/21/17 14:12 Dose: 600 mg Cefepime HCl 1 gm/ Sodium (Chloride) 50 mls @ 100 mls/hr IVPB Q12H [facility] Last Admin: 08/21/17 15:49 Dose: 100 mls/hr Lisinopril (Prinivil Tab*) 10 mg PO DAILY [facility] Last Admin: 08/21/17 10:50 Dose: 10 mg Mesalamine (Lialda (Nf)) 2.4 gm PO BID [facility] Last Admin: 08/21/17 10:51 Dose: 2.4 gm Nebivolol (Bystolic (Nf)) 10 mg PO DAILY [facility] Last Admin: 08/21/17 10:54 Dose: 10 mg Pto Non Formulary Med* (Systane 1 Drop ) 1 drop BOTH EYES BID [facility] Last Admin: 08/21/17 10:54 Dose: Not Given Pto: Uceris ( Budesonide Er 9mg Tablets) 1 dose PO DAILY PRN PRN Reason: diarrhea Last Admin: 08/15/17 14:02 Dose: 1 dose Nystatin (Nystatin Top Powder*) 1 applic TOPICAL BID [facility] Last Admin: 08/21/17 10:59 Dose: 1 applic Pharmacy Profile Note (Vancomycin Trough Check) 1 note FOLLOW UP 0530 ONE Stop: 08/22/17 05:31 Prednisone (Deltasone Tab*) 10 mg PO DAILY [facility] Stop: 09/22/17 11:00 Last Admin: 08/21/17 10:50 Dose: 10 mg Senna (Senokot Tab*) 2 tab PO BEDTIME PRN PRN Reason: CONSTIPATION Spironolactone (Aldactone Tab*) 25 mg PO DAILY [facility] Last Admin: 08/21/17 10:51 Dose: 25 mg Tramadol HCl (Ultram*) 50 mg PO Q6H PRN PRN Reason: PAIN - MODERATE TO SEVERE Last Admin: 08/21/17 14:13 Dose: 50 mg Vital Signs: Temp Pulse Resp BP Pulse Ox 98.6 F 79 20 117/50 96 08/21/17 14:59 08/21/17 14:59 08/21/17 16:05 08/21/17 14:59 08/21/17 16:05 Oxygen Devices in Use Now: Nasal Cannula Appearance: Patient sleeping, full exam deferred Result Diagrams: 08/21/17 09:42 08/21/17 09:42 Microbiology and Other Data: Microbiology 08/18/17 14:00 Urine Culture - Final Urine Klebsiella Pneumoniae Assess/Plan/Problems-Billing Assessment: This is a 77 yo female with peripheral neuropathy on chronic steroids, UC, atrial fibrillation who is a patient in PMRU recovering from pubic rami fractures with complaints of weakness found to likely have HCAP. - Patient Problems (1) HCAP (healthcare-associated pneumonia) Comment: Large LLL infiltrate with c/o weakness and noted hypoxia ID consulted, who did not feel cont Vanco was necessary Plan to cont cefepime Blood cultures obtained and pending (2) UTI due to Klebsiella species Comment: Positive culture 08/18 Completed a few days of Levaquin Cont Cefepime for both PNA and UTI (3) Pelvic fracture Comment: Superior and inferior pubic rami fractures Cont care per PMRU (4) Peripheral neuropathy Comment: Continue Gabapentin Steroid therapy has been tapered, but still continued Notes from neurologist in [place] that started therapy are pending (5) Atrial fibrillation Comment: On Eliquis. Rate controlled with Bystolic and Digoxin. (6) Ulcerative colitis Comment: Continue Mesalamine. (7) DVT prophylaxis Comment: Patient on Eliquis (8) Full code status Status and Disposition: Hospitalists will re-evaluate again tomorrow.
[2017-08-21] MEDS: Digoxin TAB* 0.25 MG PO SCH (17:14)
[2017-08-21] MEDS: Atorvastatin* 10 MG TAB PO SCH (17:15)
--- NOTE | 2017-08-21 17:47 | PN ---
Progress Note - Progress Note Date of Service: 08/21/17 Note: Had been doing well, but yesterday awoke and was feeling quite weak. Functionally, required a lot ore assitance. Had a CXR and was diagnosed with a new healthcare associated pneumonia. Now on IV Cefepime. Dr. Ayala's consult read and reviewed. Hospitalists note read and reviewed. She fells better today, but still weaker. Will not go home tomorrow. Current Medications Acetaminophen (Tylenol Tab*) 650 mg PO Q6H PRN PRN Reason: FEVER/PAIN Last Admin: 08/08/17 05:37 Dose: 650 mg Hydrocodone Bitart/Acetaminophen ([place] 5-325 Tab*) 2 tab PO Q4H PRN PRN Reason: PAIN - SEVERE Last Admin: 08/21/17 10:53 Dose: 2 tab Apixaban (Eliquis*) 5 mg PO BID [facility] Last Admin: 08/21/17 10:50 Dose: 5 mg Atorvastatin Calcium (Lipitor*) 10 mg PO 1700 [facility] Last Admin: 08/21/17 17:15 Dose: 10 mg Betamethasone Valerate (Valisone 0.1% Cm(Nf)) 1 applic TOPICAL TID [facility] Last Admin: 08/21/17 14:15 Dose: Not Given Bisacodyl (Dulcolax Supp*) 10 mg [place] DAILY PRN PRN Reason: CONSTIPATION Calcium/Vitamin D (Oscal D Tab 250/125*) 1 tab PO DAILY [facility] Last Admin: 08/21/17 10:50 Dose: 1 tab Cyclosporine (Restasis 0.05% Oph) 1 drop BOTH EYES Q12HR [place] PRN Reason: Protocol Last Admin: 08/21/17 10:54 Dose: 1 drop Digoxin (Lanoxin Tab*) 0.25 mg PO 1700 [facility] Last Admin: 08/21/17 17:14 Dose: 0.25 mg Docusate Sodium (Colace Cap*) 100 mg PO BID PRN PRN Reason: CONSTIPATION Furosemide (Lasix Tab*) 20 mg PO DAILY [facility] Last Admin: 08/21/17 10:50 Dose: 20 mg Gabapentin (Neurontin Cap(*)) 600 mg PO TID [facility] Last Admin: 08/21/17 14:12 Dose: 600 mg Cefepime HCl 1 gm/ Sodium (Chloride) 50 mls @ 100 mls/hr IVPB Q12H [facility] Last Admin: 08/21/17 15:49 Dose: 100 mls/hr Lisinopril (Prinivil Tab*) 10 mg PO DAILY [facility] Last Admin: 08/21/17 10:50 Dose: 10 mg Mesalamine (Lialda (Nf)) 2.4 gm PO BID [facility] Last Admin: 08/21/17 10:51 Dose: 2.4 gm Nebivolol (Bystolic (Nf)) 10 mg PO DAILY [facility] Last Admin: 08/21/17 10:54 Dose: 10 mg Pto Non Formulary Med* (Systane 1 Drop ) 1 drop BOTH EYES BID [facility] Last Admin: 08/21/17 10:54 Dose: Not Given Pto: Uceris ( Budesonide Er 9mg Tablets) 1 dose PO DAILY PRN PRN Reason: diarrhea Last Admin: 08/15/17 14:02 Dose: 1 dose Nystatin (Nystatin Top Powder*) 1 applic TOPICAL BID [facility] Last Admin: 08/21/17 10:59 Dose: 1 applic Pharmacy Profile Note (Vancomycin Trough Check) 1 note FOLLOW UP 0530 ONE Stop: 08/22/17 05:31 Prednisone (Deltasone Tab*) 10 mg PO DAILY [facility] Stop: 09/22/17 11:00 Last Admin: 08/21/17 10:50 Dose: 10 mg Senna (Senokot Tab*) 2 tab PO BEDTIME PRN PRN Reason: CONSTIPATION Spironolactone (Aldactone Tab*) 25 mg PO DAILY [facility] Last Admin: 08/21/17 10:51 Dose: 25 mg Tramadol HCl (Ultram*) 50 mg PO Q6H PRN PRN Reason: PAIN - MODERATE TO SEVERE Last Admin: 08/21/17 14:13 Dose: 50 mg Laboratory Results - last 24 hr 08/21/17 08/21/17 08/21/17 09:42 09:42 09:42 WBC 7.0 RBC 3.01 L Hgb 9.8 L Hct 29 L MCV 97 MCH 33 H MCHC 34 RDW 17 H Plt Count 204 MPV 8 Immature Gran % (Auto) 4 Neut % (Auto) 91.4 H Lymph % (Auto) 4.3 L [place] % (Auto) 2.3 Eos % (Auto) 1.0 Baso % (Auto) 1.0 Absolute Neuts (auto) 6.4 Absolute Lymphs (auto) 0.3 L Absolute Monos (auto) 0.2 Absolute Eos (auto) 0.1 Absolute Basos (auto) 0.1 Absolute Nucleated RBC 0.03 Neutrophils % 90 H Band Neutrophils % 2 Lymphocytes % 3 L Reactive Lymphs % Not Reportable Monocytes % 1 Eosinophils % 2 Metamyelocytes % 1 Myelocytes % 1 Nucleated RBC % 0.4 Nucleated RBCs/100 WBC 1 H Normal RBC Morphology Not Reportable Polychromasia 1+ Sodium 136 Potassium 4.3 Chloride 104 Carbon Dioxide 24 Anion Gap 8 BUN 24 Creatinine 0.80 Est GFR ( Amer) 89.7 Est GFR (Non-Af Amer) 69.7 BUN/Creatinine Ratio 30.0 H Glucose 101 H Lactic Acid 1.9 Calcium 8.3 L Vital Signs Temp Pulse Resp BP Pulse Ox 98.6 F 84 18 117/50 96 08/21/17 14:59 08/21/17 17:14 08/21/17 16:13 08/21/17 14:59 08/21/17 16:05 EXAM: LUNGS: Scattered rhonchi HEART: S1, S2 ABDOMEN: Soft EXTREMITIES: Decreased ROM, left shoulder ASSESSMENT/PLAN: 1. Pelvic fracture/Sacral ALA fracture: Continue PT/OT 2. Left shoulder acromion fracture: will re-eval in [place] 3. Healthcare associated pneumonia: IV Cefepime. ID following, hospitalists following 4. DVT prophylaxis: Eliquis 5. Atrial fib: Eliquis/Digoxin 6. Ulcerative Colitis: stable at present 7. Peripheral neuropathy: prednisone, 10 mg 8. Code Status: Full 9. Disposition: Discharge in am delayed. As clinical picture develops, disposition will be settled
[2017-08-22] MEDS: Cefepime(*) 1 GM in NS 0.9% 50 ML* 50 ML IVPB SCH ×2 (03:43→15:34)
[2017-08-22] MEDS: HYDROcodone/ACETAMIN 5-325 MG* 1 TAB PO PRN ×2 (03:45→14:33)
[2017-08-22] MEDS ORDERED: Vancomycin Trough Check NOTE FOLLOW UP ONE (05:30)
[2017-08-22] MEDS: BETAMETHASONE VALERATE 0.1% TOPICAL SCH ×3 (08:52→21:00)
[2017-08-22] MEDS: Calcium/Vitamin D TAB 250/125* TAB PO SCH (08:53)
[2017-08-22] MEDS: Furosemide TAB* 20 MG PO SCH (08:53)
[2017-08-22] MEDS: Lisinopril TAB* 10 MG PO SCH (08:54)
[2017-08-22] MEDS: Apixaban* 5 MG TAB PO SCH ×2 (08:54→20:28)
[2017-08-22] MEDS: predniSONE TAB* 10 MG PO SCH (08:54)
[2017-08-22] MEDS: Spironolactone TAB* 25 MG PO SCH (08:54)
[2017-08-22] MEDS: PTO:Nebivolol (NF) 10 MG TAB PO SCH (08:55)
[2017-08-22] MEDS: traMADol TAB* 50 MG PO PRN ×2 (08:56→20:28)
[2017-08-22] MEDS: Nystatin TOP POWDER* 15 GM BTL TOPICAL SCH ×2 (08:56→21:00)
[2017-08-22] MEDS: PTO:Mesalamine (NF) 1.2 GM TAB PO SCH ×2 (08:56→21:00)
[2017-08-22] MEDS: Gabapentin CAP(*) 300 MG PO SCH ×3 (08:57→20:28)
[2017-08-22] MEDS: CMC:Cyclosporine 0.05% OPHTH (NF) 0.4 ML VIAL BOTH EYES SCH ×2 (08:59→21:00)
[2017-08-22] MEDS: SYSTANE BOTH EYES SCH ×2 (09:00→21:00)
[2017-08-22] MEDS: UCERIS PO PRN (09:04)
--- NOTE | 2017-08-22 12:32 | PMRUTEAM ---
PMRU: Goals Current Status: Nursing: Current Status Skin Deviations [Abdominal Other Fold] Skin Deviations [Right Elbow] Abrasion Skin Deviations [Bilateral Rash Groin] Skin Deviations [Bilateral Rash Breast] Skin Deviation Description [ no redness noted Abdominal Fold] Skin Deviation Description [ tegaderm applied Right Elbow] Skin Deviation Description [ nystatin powder applied Bilateral Groin] Skin Deviation Description [ nystatin ordered for HS Bilateral Breast] Bladder Current Status up to br. Bowel Current Status HX of collitis frequent BMs Nutrition Current Status appetite better today Medication Current Status ultram, norco and routine neurontin given Physical Therapy: Current Status Bed Mobility Assistance Supervision Transfer Moblility Assistance Supervision Transfer/Bed Mobility Rolling Walker Recommended Devices Ambulation Assistance Supervision Ambulation Assistive Devices Rolling Walker Number of Feet Patient 120 Ambulated Stairs Assistance Supervision Stairs Recommended Devices Two Rails Number of Stairs 2x3 Curb Not Tested Occupational Therapy: Current Status Upper Body Dressing Mod Assist Lower Body Dressing Supervision Bathing Min Assist Toileting Min Assist Toilet Transfer Supervision,Contact Guard Assist Shower Transfer Supervision,Contact Guard Assist Eating Independent Instrumental ADL dependent in IADLs Rec Therapy: Current Status Summary of Assessment and RT assessment complete and pt. is aware of Clinical Impression services. Pt. is open to continued leisure visits . Treatment Goals Pt. will engage in leisure activities while on the unit. Treatment Plan Provide RT services and encourage involvement. Social Work: Current Status Discharge Plan return home with home care svs and family support Potential for Family Training pt's son is involved and supportive Anticipated Discharge Home Destination Discharge With VNS and family support Nutrition: Current Status Monitoring Pt completing 80-100% of most meals last week, with intake declining the past few days to 30-90% of meals. Pt did not feel well this am, so refused B. Ate 65% of L today. Pt generally eating independently. Appears to be meeting needs overall ; will continue to follow intakes. Regular soft formed BMs. No changes to recommend at this time. Goals: Physical Therapy: Initial Goals Bed Mobility Assistance Independent Transfer Mobility Assistance Independent Transfer/Bed Mobility Rolling Walker Recommended Devices Ambulation Independent Ambulation Recommended Devices Rolling Walker Ambulation Distance 150 Stairs Assistance Independent Stair Recommended Devices Two Rails Number of Stairs 10 Physical Therapy: Updated Goals Bed Mobility Assistance Independent Transfer Mobility Assistance Independent Transfer/Bed Mobility Rolling Walker Recommended Devices Ambulation Assistance Independent Ambulation Assistive Devices Rolling Walker Ambulation Distance (ft) 150 Stairs Assistance Independent Stairs Recommended Devices Two Rails Number of Stairs 10 Occupational Therapy: Initial Goals Goals to be Completed in (Days 10-14 days ) Upper Body Bathing Routine Modified Independent with Lower Body Bathing Routine Modified Independent with Upper Body Dressing Routine Modified Independent with Lower Body Dressing Routine Modified Independent with Toilet Hygeine and Clothing Modified Independent with Management Routine Toilet Transfer Routine Modified Independent with Step-In Shower Transfer Modified Independent with Routine Functional Transfers for ADL Modified Independent with Grooming Routine Modified Independent with Feeding Routine Modified Independent with Light Housekeeping Tasks Modified Independent with Nursing: Goals Bladder Goal independent Bowel Goal independent Nutrition Goal 100% of all meals Medication Goal independent Nutrition: Goals Intervention Goals 1. adequate po intake to maintain lean body mass without add'l wt gain 2. regulation of bowel pattern without c/o excessive diarrhea (or constipation) Social Work: Goals Discharge Plan return home with home care svs and family support Potential for Family Training pt's son is involved and supportive Anticipated Discharge Home Destination Discharge With VNS and family support Care Plan: Care Plan ADL's - Improve/Maintain Start: 08/04/17 15:50 Freq: DAILY Status: Active Target: Activity Type Activity Date Activity User E-Sign Co-Sign Detail Recorded Client Recorded Date Recorded By Document 08/22/17 11:03 [id number] 08/22/17 11:03 [id number] 08/22/17 11:03 PMRU Outcome: ADL's/ADL Transfers Orders/Interventions Occupational Therapy Evaluation & Treatment Patient to receive OT 5x/wk for 60-120 Therex min/day Self Care Management Group Therapy UE/LE ADL's with Assist Yes: mod I ADL Transfers with Assist Yes: mod I Toileting: Transfers,Clothing Management Yes: mod I ,Hygeine w/Assist Progression Toward Outcome/Goals Progressing Outcome/Goals Met Pt. demonstrates difficulty making functional progress 2* shoulder ROM limitations and signifincat tremors. Therapist notified [facility] staff and will notify MD when he arrives. Cardiovascular- Improve/Maintain Start: 08/01/17 12:48 Freq: DAILY Status: Active Target: Activity Type Activity Date Activity User E-Sign Co-Sign Detail Recorded Client Recorded Date Recorded By Document 08/22/17 09:00 [id number] 08/22/17 10:36 [id number] 08/22/17 09:00 PMRU Outcome: Cardiovascular Vital Signs q Shift for 48hrs Then BID Yes Daily Weight Ordered No Current Cardiovascular Outcome/Goal Maintain/ Achieve Baseline HR, BP , Perfusion Maintain/ Achieve Hemodynamic Stability Free of Abnormal Cardiac Symptoms Progression Toward Outcome/Goal Progressing Outcome/Goals Met Comment hx of AFIB DVT Prophylaxis- Improve/Maintain Start: 08/01/17 12:48 Freq: DAILY Status: Complete Target: Activity Type Activity Date Activity User E-Sign Co-Sign Detail Recorded Client Recorded Date Recorded By Document 08/22/17 09:00 [id number] 08/22/17 10:36 [id number] 08/22/17 09:00 PMRU Outcome: DVT Prophylaxis Outcome/Goals Remains Free of DVT Complies with DVT Prophylaxis /Treatment Demonstrates Knowledge of DVT Prevention/ Treatment TEDS Stockings on Every AM, Off at HS Progression Toward Outcome/Goals Progressing Outcome/Goals Met Comment melvin wraps bilaterally Discharge Planning - Improve/Maintain Start: 08/01/17 12:48 Freq: DAILY Status: Active Target: Activity Type Activity Date Activity User E-Sign Co-Sign Detail Recorded Client Recorded Date Recorded By Document 08/22/17 01:58 [id number] 08/22/17 01:58 [id number] 08/22/17 01:58 PMRU Outcome: Discharge Planning Identify Patient Needs yes Update Patient Family No Outcome/Goals Demonstrates Understanding of Discharge Plan Progression Toward Outcome/Goals Progressing Education-Improve/Maintain Start: 08/01/17 12:48 Freq: DAILY Status: Active Target: Activity Type Activity Date Activity User E-Sign Co-Sign Detail Recorded Client Recorded Date Recorded By Document 08/22/17 09:00 [id number] 08/22/17 10:36 [id number] 08/22/17 09:00 PMRU Outcome: Education Outcome/Goals Demonstrate/ Verbalize Understanding of Written Discharge Instructions Encourage Questions Progression Toward Outcome/Goals Progressing /GI-Improve/Maintain Start: 08/01/17 12:48 Freq: DAILY Status: Complete Target: Activity Type Activity Date Activity User E-Sign Co-Sign Detail Recorded Client Recorded Date Recorded By Document 08/22/17 09:00 [id number] 08/22/17 10:36 [id number] 08/22/17 09:00 PMRU Outcome: Genitourinary/ Gastrointestinal Genitourinary- Outcome/Goals Maintain/ Achieve Urinary Continence Maintain/ Achieve Adequate Urinary Output Remain Free of Hospital- Acquired UTI Gastrointestinal-Outcome/Goals Maintain/ Achieve Bowel Regularity in Accordance with Pt's Baseline Prevent Constipation Laxatives as Ordered Progression Toward Outcome/Goals - Progressing Progression Toward Outcome/Goals - GI Progressing Outcome/Goals Met Comment patient currently has UTI. encouraged to increase PO intake Medication Administration Start: 08/01/17 12:48 Freq: DAILY Status: Active Target: Activity Type Activity Date Activity User E-Sign Co-Sign Detail Recorded Client Recorded Date Recorded By Document 08/22/17 09:00 [id number] 08/22/17 10:36 [id number] 08/22/17 09:00 PMRU Outcome: Medication Administration Assess Patient Knowledge/Teach Med Yes Education for all Meds Outcome/Goals Patient Independent with Medication Administration at Home Demonstrates Understanding Progression Towards Outcome/Goals Progressing Is Patient Going Home on Lovenox? No Mobility- Improve/Maintain Start: 08/09/17 08:46 Freq: DAILY Status: Active Target: Activity Type Activity Date Activity User E-Sign Co-Sign Detail Recorded Client Recorded Date Recorded By Document 08/18/17 17:30 [id number] 08/19/17 11:27 [id number] 08/18/17 17:30 PMRU Outcome: Mobility Physical Therapy Evaluation and Yes Treatment Activity OOB with Assistance Yes WBAT Yes Device Yes Assistance Yes Patient to be seen 5x/wk for 60-120 min/ Therex day for: Mobility Training Gait Training W/C Mobility Balance Outcome/Goals Maintain/ Achieve Baseline Mobility Status Improve Mobility Status Demonstrates Proper Use of Assistive Devices Free from Complications of Immobility Progression Toward Outcome/Goals Progressing Bed Mobility Yes: independent Transfers Yes: independent with rolling walker. Gait x ft Yes: independent with rolling walker 150' Up/Down Stairs Yes: independent up/ down 10 stairs with 2 rails. Pain/Comfort- Improve/Maintain Start: 08/01/17 12:48 Freq: DAILY Status: Active Target: Activity Type Activity Date Activity User E-Sign Co-Sign Detail Recorded Client Recorded Date Recorded By Document 08/22/17 09:00 [id number] 08/22/17 10:36 [id number] 08/22/17 09:00 PMRU Outcome: Pain/Comfort Outcome/Goals Demonstrates Knowledge and Use of Available Comfort Measures Achieves Acceptable Comfort/Pain Level as Determined by Patient/Condit Maintain Comfort Level Allowing Patient to Fully Participate in Rehab Progression Toward Outcome/Goals Progressing Outcome/Goals Met Demonstrates Knowledge and Use of Available Comfort Measures Safety- Improve/Maintain Start: 08/01/17 12:48 Freq: DAILY Status: Active Target: Activity Type Activity Date Activity User E-Sign Co-Sign Detail Recorded Client Recorded Date Recorded By Document 08/22/17 09:00 [id number] 08/22/17 10:36 [id number] 08/22/17 09:00 PMRU Outcome: Safety Outcome/Goals Remain Free of Injury or Harm Cooperates with Safety Measures for Least Restrictive Environment Prevent Falls/ Injury Progression Toward Outcome/Goals Progressing Outcome/Goals Met Cooperates with Safety Measures for Least Restrictive Environment Prevent Falls/ Injury Outcome/Goals Met Comment PA in place, ringing appropriately. no attempts to get up independently Medicine Note: Length of Stay: 7 days Anticipated Discharge Destination: Home Tentative Discharge Date: 08/29/17 Discharged to: Home
--- NOTE | 2017-08-22 13:20 | PN ---
Subjective Date of Service: 08/22/17 Interval History: Patient reports her energy is improving. No c/o cough or SOB. Still requiring 2L NC. No c/o n/v. Objective Active Medications: Acetaminophen (Tylenol Tab*) 650 mg PO Q6H PRN PRN Reason: FEVER/PAIN Last Admin: 08/08/17 05:37 Dose: 650 mg Hydrocodone Bitart/Acetaminophen ([place] 5-325 Tab*) 2 tab PO Q4H PRN PRN Reason: PAIN - SEVERE Last Admin: 08/22/17 03:45 Dose: 2 tab Apixaban (Eliquis*) 5 mg PO BID [facility] Last Admin: 08/22/17 08:54 Dose: 5 mg Atorvastatin Calcium (Lipitor*) 10 mg PO 1700 [facility] Last Admin: 08/21/17 17:15 Dose: 10 mg Betamethasone Valerate (Valisone 0.1% Cm(Nf)) 1 applic TOPICAL TID [facility] Last Admin: 08/22/17 13:11 Dose: Not Given Bisacodyl (Dulcolax Supp*) 10 mg [place] DAILY PRN PRN Reason: CONSTIPATION Calcium/Vitamin D (Oscal D Tab 250/125*) 1 tab PO DAILY [facility] Last Admin: 08/22/17 08:53 Dose: 1 tab Cyclosporine (Restasis 0.05% [facility]) 1 drop BOTH EYES Q12HR [facility] PRN Reason: Protocol Last Admin: 08/22/17 08:59 Dose: Not Given Digoxin (Lanoxin Tab*) 0.25 mg PO 1700 [facility] Last Admin: 08/21/17 17:14 Dose: 0.25 mg Docusate Sodium (Colace Cap*) 100 mg PO BID PRN PRN Reason: CONSTIPATION Furosemide (Lasix Tab*) 20 mg PO DAILY [facility] Last Admin: 08/22/17 08:53 Dose: 20 mg Gabapentin (Neurontin Cap(*)) 600 mg PO TID [facility] Last Admin: 08/22/17 13:05 Dose: 600 mg Cefepime HCl 1 gm/ Sodium (Chloride) 50 mls @ 100 mls/hr IVPB Q12H [facility] Last Admin: 08/22/17 03:43 Dose: 100 mls/hr Lisinopril (Prinivil Tab*) 10 mg PO DAILY [facility] Last Admin: 08/22/17 08:54 Dose: 10 mg Mesalamine (Lialda (Nf)) 2.4 gm PO BID [facility] Last Admin: 08/22/17 08:56 Dose: Not Given Nebivolol (Bystolic (Nf)) 10 mg PO DAILY [facility] Last Admin: 08/22/17 08:55 Dose: 10 mg Pto Non Formulary Med* (Systane 1 Drop ) 1 drop BOTH EYES BID [facility] Last Admin: 08/22/17 09:00 Dose: Not Given Pto: Uceris ( Budesonide Er 9mg Tablets) 1 dose PO DAILY PRN PRN Reason: diarrhea Last Admin: 08/22/17 09:04 Dose: 1 dose Nystatin (Nystatin Top Powder*) 1 applic TOPICAL BID [facility] Last Admin: 08/22/17 08:56 Dose: 1 applic Prednisone (Deltasone Tab*) 10 mg PO DAILY [facility] Stop: 09/22/17 11:00 Last Admin: 08/22/17 08:54 Dose: 10 mg Senna (Senokot Tab*) 2 tab PO BEDTIME PRN PRN Reason: CONSTIPATION Spironolactone (Aldactone Tab*) 25 mg PO DAILY [facility] Last Admin: 08/22/17 08:54 Dose: 25 mg Tramadol HCl (Ultram*) 50 mg PO Q6H PRN PRN Reason: PAIN - MODERATE TO SEVERE Last Admin: 08/22/17 08:56 Dose: 50 mg Vital Signs: Temp Pulse Resp BP Pulse Ox 98.2 F 82 18 140/68 89 08/22/17 04:43 08/22/17 04:43 08/22/17 13:05 08/22/17 04:43 08/22/17 08:00 Oxygen Devices in Use Now: Nasal Cannula Appearance: Well appearing 77 yo female finishing lunch in [facility] Respiratory: Symmetrical Chest Expansion and Respiratory Effort, - - few rales in R lung base Cardiovascular: NL Sounds; No Murmurs; No JVD, RRR Extremities: No Edema, - - lower leg in [place] wraps bilaterally Skin: No Rash or Ulcers Neurological: Alert and Oriented x 3 Result Diagrams: 08/21/17 09:42 08/21/17 09:42 Microbiology and Other Data: Microbiology 08/18/17 14:00 Urine Culture - Final Urine Klebsiella Pneumoniae Assess/Plan/Problems-Billing Assessment: This is a 77 yo female with peripheral neuropathy on chronic steroids, UC, atrial fibrillation who is a patient in PMRU recovering from pubic rami fractures with complaints of weakness found to likely have HCAP. - Patient Problems (1) HCAP (healthcare-associated pneumonia) Comment: Improved energy, still hypoxic, no cough/SOB Large LLL infiltrate with c/o weakness and noted hypoxia ID consulted, who did not feel cont Vanco was necessary Plan to cont cefepime Blood cultures obtained and pending Recommend regular use of flutter valve (2) UTI due to Klebsiella species Comment: Positive culture 08/18 Completed a few days of Levaquin Cont Cefepime for both PNA and UTI (3) Pelvic fracture Comment: Superior and inferior pubic rami fractures Cont care per RU (4) Peripheral neuropathy Comment: Continue Gabapentin Steroid therapy has been tapered, but still continued Notes from neurologist in [place] that started therapy are pending (5) Atrial fibrillation Comment: On Eliquis. Rate controlled with Bystolic and Digoxin. (6) Ulcerative colitis Comment: Continue Mesalamine. (7) DVT prophylaxis Comment: Patient on Eliquis (8) Full code status Status and Disposition: Improving HCAP. Cont cefepime, length of therapy per ID. Hospitalist group will sign off at this time, but happy to re-evaluate if necessary
--- NOTE | 2017-08-22 16:18 | PN ---
Progress Note - Progress Note Date of Service: 08/22/17 Note: Linda visited. She was discussed in interdisciplinary team rounds. The therapists note she is functionally better than yesterday but not as good as last week. She remains with difficulty with tremors. I wonder if bumping her prednisone may help. She is on IV cefepime for HCAP. Current Medications Acetaminophen (Tylenol Tab*) 650 mg PO Q6H PRN PRN Reason: FEVER/PAIN Last Admin: 08/08/17 05:37 Dose: 650 mg Hydrocodone Bitart/Acetaminophen ([place] 5-325 Tab*) 2 tab PO Q4H PRN PRN Reason: PAIN - SEVERE Last Admin: 08/22/17 14:33 Dose: 2 tab Apixaban (Eliquis*) 5 mg PO BID [facility] Last Admin: 08/22/17 08:54 Dose: 5 mg Atorvastatin Calcium (Lipitor*) 10 mg PO 1700 [facility] Last Admin: 08/21/17 17:15 Dose: 10 mg Betamethasone Valerate (Valisone 0.1% Cm(Nf)) 1 applic TOPICAL TID [facility] Last Admin: 08/22/17 13:11 Dose: Not Given Bisacodyl (Dulcolax Supp*) 10 mg [place] DAILY PRN PRN Reason: CONSTIPATION Calcium/Vitamin D (Oscal D Tab 250/125*) 1 tab PO DAILY [facility] Last Admin: 08/22/17 08:53 Dose: 1 tab Cyclosporine (Restasis 0.05% Ophth) 1 drop BOTH EYES Q12HR [place] PRN Reason: Protocol Last Admin: 08/22/17 08:59 Dose: Not Given Digoxin (Lanoxin Tab*) 0.25 mg PO 1700 [facility] Last Admin: 08/21/17 17:14 Dose: 0.25 mg Docusate Sodium (Colace Cap*) 100 mg PO BID PRN PRN Reason: CONSTIPATION Furosemide (Lasix Tab*) 20 mg PO DAILY [facility] Last Admin: 08/22/17 08:53 Dose: 20 mg Gabapentin (Neurontin Cap(*)) 600 mg PO TID [facility] Last Admin: 08/22/17 13:05 Dose: 600 mg Cefepime HCl 1 gm/ Sodium (Chloride) 50 mls @ 100 mls/hr IVPB Q12H [facility] Last Admin: 08/22/17 15:34 Dose: 100 mls/hr Lisinopril (Prinivil Tab*) 10 mg PO DAILY [facility] Last Admin: 08/22/17 08:54 Dose: 10 mg Mesalamine (Lialda (Nf)) 2.4 gm PO BID [facility] Last Admin: 08/22/17 08:56 Dose: Not Given Nebivolol (Bystolic (Nf)) 10 mg PO DAILY [facility] Last Admin: 08/22/17 08:55 Dose: 10 mg Pto Non Formulary Med* (Systane 1 Drop ) 1 drop BOTH EYES BID [facility] Last Admin: 08/22/17 09:00 Dose: Not Given Pto: Uceris ( Budesonide Er 9mg Tablets) 1 dose PO DAILY PRN PRN Reason: diarrhea Last Admin: 08/22/17 09:04 Dose: 1 dose Nystatin (Nystatin Top Powder*) 1 applic TOPICAL BID [facility] Last Admin: 08/22/17 08:56 Dose: 1 applic Prednisone (Deltasone Tab*) 10 mg PO DAILY [facility] Stop: 09/22/17 11:00 Last Admin: 08/22/17 08:54 Dose: 10 mg Senna (Senokot Tab*) 2 tab PO BEDTIME PRN PRN Reason: CONSTIPATION Spironolactone (Aldactone Tab*) 25 mg PO DAILY [facility] Last Admin: 08/22/17 08:54 Dose: 25 mg Tramadol HCl (Ultram*) 50 mg PO Q6H PRN PRN Reason: PAIN - MODERATE TO SEVERE Last Admin: 08/22/17 08:56 Dose: 50 mg Sodium 136 mmol/L (133-145) 08/21/17 09:42 Potassium 4.3 mmol/L (3.5-5.0) 08/21/17 09:42 BUN 24 mg/dL (6-24) 08/21/17 09:42 Creatinine 0.80 mg/dL (0.51-0.95) 08/21/17 09:42 Calcium 8.3 mg/dL (8.6-10.3) L 08/21/17 09:42 AST 42 U/L (13-39) H 08/20/17 11:20 ALT 49 U/L (7-52) 08/20/17 11:20 Vital Signs Temp Pulse Resp BP Pulse Ox 98.6 F 88 19 95/46 96 08/22/17 15:57 08/22/17 15:57 08/22/17 15:57 08/22/17 15:57 08/22/17 15:57 EXAM: LUNGS: Scattered rhonchi HEART: S1, S2 ABDOMEN: Soft EXTREMITIES: Decreased ROM, left shoulder ASSESSMENT/PLAN: 1. Pelvic fracture/Sacral ALA fracture: Continue PT/OT 2. Left shoulder acromion fracture: will re-eval in [place] 3. Healthcare associated pneumonia: IV Cefepime. ID following, hospitalists following 4. DVT prophylaxis: Eliquis 5. Atrial fib: Eliquis/Digoxin 6. Ulcerative Colitis: stable at present 7. Peripheral neuropathy: prednisone, 10 mg 8. Code Status: Full 9. Disposition: Discharge delayed. As clinical picture develops, disposition will be settled. She is moving better
--- NOTE | 2017-08-22 16:55 | PN ---
Progress Note - Progress Note Date of Service: 08/22/17 SOAP: Subjective: CC: pneumonia HPI: 77 year old woman with dypsnea, recent fever; supplemental O2 requirement decreasing. More energy and appetite good. No fever, rash, or diarrhea Objective: [] Vital Signs Temp 37.0 C 08/22/17 15:57 Pulse 88 08/22/17 15:57 Resp 19 08/22/17 16:33 BP 95/46 08/22/17 15:57 Pulse Ox 96 08/22/17 15:57 Intake & Output 08/21/17 08/22/17 08/22/17 18:59 06:59 18:59 Intake Total 90 160 600 Output Total 20 Balance 70 160 600 Intake: IV Fluids 55 NS (0.9%) 55 IVPB 105 ABX - CEFEPIME 105 Oral 90 600 Output: Urine 20 Other: Estimated Void Medium Medium Estimated Stool Amount Medium # Voids 1 1 Gen:awake, no distress HEENT:PERRL, MMM Neck:supple Heart:RRR no murmur Lungs:decr BS at bases Abd:+BS NTND soft Assessment: 1. pneumonia 2. pelvic fx Plan: continue cefepime day 3/5, follow O2 sats and temp
[2017-08-22] MEDS: Atorvastatin* 10 MG TAB PO SCH (17:06)
[2017-08-22] MEDS: Digoxin TAB* 0.25 MG PO SCH (17:06)
[2017-08-23] MEDS: HYDROcodone/ACETAMIN 5-325 MG* 1 TAB PO PRN ×3 (01:55→21:24)
[2017-08-23] MEDS: Cefepime(*) 1 GM in NS 0.9% 50 ML* 50 ML IVPB SCH ×2 (02:02→15:36)
[2017-08-23] MEDS: traMADol TAB* 50 MG PO PRN ×2 (06:34→13:05)
[2017-08-23] MEDS: CMC:Cyclosporine 0.05% OPHTH (NF) 0.4 ML VIAL BOTH EYES SCH ×2 (08:25→21:27)
[2017-08-23] MEDS: BETAMETHASONE VALERATE 0.1% TOPICAL SCH ×3 (08:26→22:18)
[2017-08-23] MEDS: PTO:Nebivolol (NF) 10 MG TAB PO SCH (08:26)
[2017-08-23] MEDS: predniSONE TAB* 10 MG PO SCH (08:27)
[2017-08-23] MEDS: Furosemide TAB* 20 MG PO SCH (08:27)
[2017-08-23] MEDS: Gabapentin CAP(*) 300 MG PO SCH ×3 (08:27→21:25)
[2017-08-23] MEDS: Apixaban* 5 MG TAB PO SCH ×2 (08:27→21:26)
[2017-08-23] MEDS: Calcium/Vitamin D TAB 250/125* TAB PO SCH (08:27)
[2017-08-23] MEDS: Lisinopril TAB* 10 MG PO SCH (08:27)
[2017-08-23] MEDS: Nystatin TOP POWDER* 15 GM BTL TOPICAL SCH ×2 (08:30→22:19)
[2017-08-23] MEDS: Spironolactone TAB* 25 MG PO SCH (09:36)
[2017-08-23] MEDS: PTO:Mesalamine (NF) 1.2 GM TAB PO SCH ×2 (09:45→22:19)
[2017-08-23] MEDS: SYSTANE BOTH EYES SCH ×2 (09:45→21:27)
--- NOTE | 2017-08-23 12:49 | PN ---
Progress Note - Progress Note Date of Service: 08/23/17 Note: She is feeling better daily and getting stronger. Using oxygen still and vigilant about doing IS and flutter valve. No chest pain, shortness of breath or abdominal pain. Nursing and therapy notes reviewed. Acetaminophen (Tylenol Tab*) 650 mg PO Q6H PRN PRN Reason: FEVER/PAIN Last Admin: 08/08/17 05:37 Dose: 650 mg Hydrocodone Bitart/Acetaminophen ([place] 5-325 Tab*) 2 tab PO Q4H PRN PRN Reason: PAIN - SEVERE Last Admin: 08/23/17 09:36 Dose: 2 tab Apixaban (Eliquis*) 5 mg PO BID [facility] Last Admin: 08/23/17 08:27 Dose: 5 mg Atorvastatin Calcium (Lipitor*) 10 mg PO 1700 [facility] Last Admin: 08/22/17 17:06 Dose: 10 mg Betamethasone Valerate (Valisone 0.1% Cm(Nf)) 1 applic TOPICAL TID [facility] Last Admin: 08/23/17 08:26 Dose: 1 applic Bisacodyl (Dulcolax Supp*) 10 mg NC DAILY PRN PRN Reason: CONSTIPATION Calcium/Vitamin D (Oscal D Tab 250/125*) 1 tab PO DAILY [facility] Last Admin: 08/23/17 08:27 Dose: 1 tab Cyclosporine (Restasis 0.05% Oph) 1 drop BOTH EYES Q12HR [facility] PRN Reason: Protocol Last Admin: 08/23/17 08:25 Dose: 1 drop Digoxin (Lanoxin Tab*) 0.25 mg PO 1700 [facility] Last Admin: 08/22/17 17:06 Dose: 0.25 mg Docusate Sodium (Colace Cap*) 100 mg PO BID PRN PRN Reason: CONSTIPATION Furosemide (Lasix Tab*) 20 mg PO DAILY [facility] Last Admin: 08/23/17 08:27 Dose: 20 mg Gabapentin (Neurontin Cap(*)) 600 mg PO TID [facility] Last Admin: 08/23/17 08:27 Dose: 600 mg Cefepime HCl 1 gm/ Sodium (Chloride) 50 mls @ 100 mls/hr IVPB Q12H [facility] Last Admin: 08/23/17 02:02 Dose: 100 mls/hr Lisinopril (Prinivil Tab*) 10 mg PO DAILY [facility] Last Admin: 08/23/17 08:27 Dose: 10 mg Mesalamine (Lialda (Nf)) 2.4 gm PO BID [facility] Last Admin: 08/23/17 09:45 Dose: Not Given Nebivolol (Bystolic (Nf)) 10 mg PO DAILY [facility] Last Admin: 08/23/17 08:26 Dose: 10 mg Pto Non Formulary Med* (Systane 1 Drop ) 1 drop BOTH EYES BID [facility] Last Admin: 08/23/17 09:45 Dose: Not Given Pto: Uceris ( Budesonide Er 9mg Tablets) 1 dose PO DAILY PRN PRN Reason: diarrhea Last Admin: 08/22/17 09:04 Dose: 1 dose Nystatin (Nystatin Top Powder*) 1 applic TOPICAL BID [facility] Last Admin: 08/23/17 08:30 Dose: 1 applic Prednisone (Deltasone Tab*) 20 mg PO DAILY [facility] Stop: 09/22/17 11:00 Last Admin: 08/23/17 08:27 Dose: 20 mg Senna (Senokot Tab*) 2 tab PO BEDTIME PRN PRN Reason: CONSTIPATION Spironolactone (Aldactone Tab*) 25 mg PO DAILY [facility] Last Admin: 08/23/17 09:36 Dose: 25 mg Tramadol HCl (Ultram*) 50 mg PO Q6H PRN PRN Reason: PAIN - MODERATE TO SEVERE Last Admin: 08/23/17 06:34 Dose: 50 mg Temp Pulse Resp BP Pulse Ox 97.7 F 64 18 154/59 97 08/23/17 06:31 08/23/17 06:31 08/23/17 11:26 08/23/17 06:31 08/23/17 08:38 PE: General: no acute distress. Alert and appropriate. Lungs: clear bilaterally. CV: irregularly irregular. Abdomen: soft, non-tender, non-distended. Ext: No edema. Neuro: Less tremor evident today in chair. Motor 5/5 bilateral upper and lower extremities. Microbiology 08/21/17 17:40 Aerobic Blood Culture - Preliminary Blood Venous No Growth Day 1 Anaerobic Blood Culture - Preliminary No Growth Day 1 08/21/17 13:33 Aerobic Blood Culture - Preliminary Blood Venous No Growth Day 1 Anaerobic Blood Culture - Preliminary No Growth Day 1 Assessment/Plan: 77 yo woman with pelvic/sacral ala fractures and left AC fracture. Recurrent UTI. Hospital acquired Pneumonia. 1. Pelvic fracture/Sacral ALA fracture: wbat. Continue PT/OT 2. Left shoulder acromion fracture: to follow-up with orthopedics in [place]. She needs to take copies of images with her at discharge. 3. ID: Being treated for klebsiella pneumoniae UTI and Hospital acquired pneumonia with cefipime day #4. f/u with ID on length of treatment. 4. Tremor: Request sent for neurology medical records from [place]. Prednisone was increased back up to 20mg. 5. DVT prophylaxis: Eliquis 6. Atrial fib: Eliquis/Digoxin 7. Ulcerative Colitis: stable at present 8. Code Status/Advanced Directives: Full code. 9. Disposition: ? Home 08/29/17
[2017-08-23] MEDS: Digoxin TAB* 0.25 MG PO SCH (17:19)
[2017-08-23] MEDS: Atorvastatin* 10 MG TAB PO SCH (17:19)
[2017-08-23] MEDS: Triamcinolone 0.025% OINT * 15 GM TUBE TOPICAL SCH (22:20)
[2017-08-24] MEDS: Cefepime(*) 1 GM in NS 0.9% 50 ML* 50 ML IVPB SCH ×2 (03:14→14:31)
[2017-08-24] MEDS: HYDROcodone/ACETAMIN 5-325 MG* 1 TAB PO PRN ×2 (07:57→13:10)
[2017-08-24] MEDS: CMC:Cyclosporine 0.05% OPHTH (NF) 0.4 ML VIAL BOTH EYES SCH ×2 (08:42→21:21)
[2017-08-24] MEDS: predniSONE TAB* 10 MG PO SCH (08:43)
[2017-08-24] MEDS: Furosemide TAB* 20 MG PO SCH (08:43)
[2017-08-24] MEDS: Gabapentin CAP(*) 300 MG PO SCH ×3 (08:43→21:17)
[2017-08-24] MEDS: Calcium/Vitamin D TAB 250/125* TAB PO SCH (08:43)
[2017-08-24] MEDS: Spironolactone TAB* 25 MG PO SCH (08:43)
[2017-08-24] MEDS: PTO:Nebivolol (NF) 10 MG TAB PO SCH (08:43)
[2017-08-24] MEDS: PTO:Mesalamine (NF) 1.2 GM TAB PO SCH (08:43)
[2017-08-24] MEDS: Apixaban* 5 MG TAB PO SCH ×2 (08:44→21:16)
[2017-08-24] MEDS: Lisinopril TAB* 10 MG PO SCH (08:44)
[2017-08-24] MEDS: Nystatin TOP POWDER* 15 GM BTL TOPICAL SCH ×2 (08:45→21:23)
[2017-08-24] MEDS: Triamcinolone 0.025% OINT * 15 GM TUBE TOPICAL SCH ×3 (09:42→21:21)
[2017-08-24] MEDS: BETAMETHASONE VALERATE 0.1% TOPICAL SCH ×3 (09:43→21:23)
[2017-08-24] MEDS: SYSTANE BOTH EYES SCH ×2 (09:43→21:15)
--- NOTE | 2017-08-24 12:31 | PN ---
Progress Note - Progress Note Date of Service: 08/24/17 Note: Patient visited. Nursing and therapy notes reviewed. Did not do OT first thing this AM b/c had low back pain. Took pain medication and then made up session later in the morning. She feels she is getting stronger with time and her breathing is improving. No chest pain, shortness or breath or abdominal pain. Vital Signs Temp Pulse Resp BP Pulse Ox 98.0 F 93 18 155/80 99 08/24/17 05:59 08/24/17 05:59 08/24/17 10:43 08/24/17 05:59 08/24/17 08:51 PE: General: no acute distress. Alert and appropriate. Lungs: clear bilaterally. CV: irregularly irregular. Abdomen: soft, non-tender, non-distended. Ext: No edema. Neuro: Tremor in chair similar to yesterday. Motor 5/5 bilateral upper and lower extremities. Assessment/Plan: 77 yo woman with pelvic/sacral ala fractures and left AC fracture. Recurrent UTI. Hospital acquired Pneumonia. 1. Pelvic fracture/Sacral ALA fracture: wbat. Continue PT/OT 2. Left shoulder acromion fracture: to follow-up with orthopedics in [place]. She needs to take copies of images with her at discharge. 3. ID: Being treated for klebsiella pneumoniae UTI and Hospital acquired pneumonia with cefipime day #5. f/u with ID on length of treatment. 4. Tremor: Request sent for neurology medical records from [place]. Prednisone was increased back up to 20mg. 5. DVT prophylaxis: Eliquis 6. Atrial fib: Eliquis/Digoxin 7. Ulcerative Colitis: stable at present 8. Code Status/Advanced Directives: Full code. 9. Disposition: ? Home 08/29/17
--- NOTE | 2017-08-24 14:42 | PN ---
Progress Note - Progress Note Date of Service: 08/24/17 Note: Notes received from Dr. Alvarez, neurology in [place], [place]. 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 Also she saw a movement disorder specialist at and was diagnosed with dystonic head tremor. Lastly, she was followed by a pressure washer. She has had a right forearm abscess -recurrent, multiple. And tissue sampling showed acid-fast bacilli, ? norcardia. She did not tolerate diarrhea.
[2017-08-24] MEDS: Atorvastatin* 10 MG TAB PO SCH (18:06)
[2017-08-24] MEDS: Digoxin TAB* 0.25 MG PO SCH (18:06)
[2017-08-25] MEDS: Cefepime(*) 1 GM in NS 0.9% 50 ML* 50 ML IVPB SCH ×2 (03:01→15:28)
[2017-08-25] MEDS: Nystatin TOP POWDER* 15 GM BTL TOPICAL SCH ×2 (09:01→20:22)
[2017-08-25] MEDS: Triamcinolone 0.025% OINT * 15 GM TUBE TOPICAL SCH ×3 (09:02→20:22)
[2017-08-25] MEDS: CMC:Cyclosporine 0.05% OPHTH (NF) 0.4 ML VIAL BOTH EYES SCH ×2 (09:02→20:18)
[2017-08-25] MEDS: PTO:Mesalamine (NF) 1.2 GM TAB PO SCH (09:02)
[2017-08-25] MEDS: Gabapentin CAP(*) 300 MG PO SCH ×3 (09:03→20:18)
[2017-08-25] MEDS: PTO:Nebivolol (NF) 10 MG TAB PO SCH (09:03)
[2017-08-25] MEDS: HYDROcodone/ACETAMIN 5-325 MG* 1 TAB PO PRN (09:03)
[2017-08-25] MEDS: Spironolactone TAB* 25 MG PO SCH (09:03)
[2017-08-25] MEDS: Lisinopril TAB* 10 MG PO SCH (09:03)
[2017-08-25] MEDS: predniSONE TAB* 10 MG PO SCH (09:04)
[2017-08-25] MEDS: Calcium/Vitamin D TAB 250/125* TAB PO SCH (09:04)
[2017-08-25] MEDS: Furosemide TAB* 20 MG PO SCH (09:04)
[2017-08-25] MEDS: Apixaban* 5 MG TAB PO SCH ×2 (09:04→20:21)
[2017-08-25] MEDS: BETAMETHASONE VALERATE 0.1% TOPICAL SCH ×3 (09:05→20:17)
[2017-08-25] MEDS: SYSTANE BOTH EYES SCH ×2 (09:11→20:22)
--- NOTE | 2017-08-25 10:37 | PN ---
Progress Note - Progress Note Date of Service: 08/25/17 Note: Patient visited. Nursing and therapy notes reviewed. Patient did not sleep well last night since IV had to be changed for antibiotics. She was quite upset this morning getting woken up for therapy and BP was high. She feels her breathing is good. Still on supplemental oxygen. No chest pain, shortness or breath or abdominal pain. Acetaminophen (Tylenol Tab*) 650 mg PO Q6H PRN PRN Reason: FEVER/PAIN Last Admin: 08/08/17 05:37 Dose: 650 mg Hydrocodone Bitart/Acetaminophen ([place] 5-325 Tab*) 2 tab PO Q4H PRN PRN Reason: PAIN - SEVERE Last Admin: 08/25/17 09:03 Dose: 2 tab Apixaban (Eliquis*) 5 mg PO BID [facility] Last Admin: 08/25/17 09:04 Dose: 5 mg Atorvastatin Calcium (Lipitor*) 10 mg PO 1700 [facility] Last Admin: 08/24/17 18:06 Dose: 10 mg Betamethasone Valerate (Valisone 0.1% Cm(Nf)) 1 applic TOPICAL TID [facility] Last Admin: 08/25/17 09:05 Dose: Not Given Bisacodyl (Dulcolax Supp*) 10 mg [place] DAILY PRN PRN Reason: CONSTIPATION Calcium/Vitamin D (Oscal D Tab 250/125*) 1 tab PO DAILY [facility] Last Admin: 08/25/17 09:04 Dose: 1 tab Cyclosporine (Restasis 0.05% Ophth) 1 drop BOTH EYES Q12HR [facility] PRN Reason: Protocol Last Admin: 08/25/17 09:02 Dose: 1 drop Digoxin (Lanoxin Tab*) 0.25 mg PO 1700 [facility] Last Admin: 08/24/17 18:06 Dose: 0.25 mg Docusate Sodium (Colace Cap*) 100 mg PO BID PRN PRN Reason: CONSTIPATION Furosemide (Lasix Tab*) 20 mg PO DAILY [facility] Last Admin: 08/25/17 09:04 Dose: 20 mg Gabapentin (Neurontin Cap(*)) 600 mg PO TID [facility] Last Admin: 08/25/17 09:03 Dose: 600 mg Cefepime HCl 1 gm/ Sodium (Chloride) 50 mls @ 100 mls/hr IVPB Q12H [facility] Last Admin: 08/25/17 03:01 Dose: 100 mls/hr Lisinopril (Prinivil Tab*) 10 mg PO DAILY [facility] Last Admin: 08/25/17 09:03 Dose: 10 mg Mesalamine (Lialda (Nf)) 2.4 gm PO DAILY [facility] Last Admin: 08/25/17 09:02 Dose: 2.4 gm Nebivolol (Bystolic (Nf)) 10 mg PO DAILY [facility] Last Admin: 08/25/17 09:03 Dose: 10 mg Pto Non Formulary Med* (Systane 1 Drop ) 1 drop BOTH EYES BID [facility] Last Admin: 08/25/17 09:11 Dose: Not Given Pto: Uceris ( Budesonide Er 9mg Tablets) 1 dose PO DAILY PRN PRN Reason: diarrhea Last Admin: 08/22/17 09:04 Dose: 1 dose Nystatin (Nystatin Top Powder*) 1 applic TOPICAL BID [facility] Last Admin: 08/25/17 09:01 Dose: 1 applic Prednisone (Deltasone Tab*) 20 mg PO DAILY [facility] Stop: 09/22/17 11:00 Last Admin: 08/25/17 09:04 Dose: 20 mg Senna (Senokot Tab*) 2 tab PO BEDTIME PRN PRN Reason: CONSTIPATION Spironolactone (Aldactone Tab*) 25 mg PO DAILY [facility] Last Admin: 08/25/17 09:03 Dose: 25 mg Tramadol HCl (Ultram*) 50 mg PO Q6H PRN PRN Reason: PAIN - MODERATE TO SEVERE Last Admin: 08/23/17 13:05 Dose: 50 mg Triamcinolone Acetonide (Triamcinolone 0.025% Oint *) 1 applic TOPICAL TID [facility] Last Admin: 08/25/17 09:02 Dose: 1 applic Vital Signs (72 hours) 08/22/17 08/22/17 08/22/17 10:56 10:57 13:05 Temperature Pulse Rate Respiratory 18 18 18 Rate Blood Pressure (mmHg) O2 Sat by Pulse Oximetry 08/22/17 08/22/17 08/22/17 14:33 15:05 15:57 Temperature 98.6 F Pulse Rate 88 Respiratory 18 19 19 Rate Blood Pressure 95/46 (mmHg) O2 Sat by Pulse 96 Oximetry 08/22/17 08/22/17 08/22/17 16:33 17:06 17:25 Temperature Pulse Rate 88 Respiratory 19 Rate Blood Pressure (mmHg) O2 Sat by Pulse 96 Oximetry 08/22/17 08/22/17 08/22/17 20:28 20:58 22:28 Temperature Pulse Rate Respiratory 18 18 Rate Blood Pressure 118/62 (mmHg) O2 Sat by Pulse Oximetry 08/22/17 08/23/17 08/23/17 22:57 01:55 03:40 Temperature Pulse Rate Respiratory 18 20 18 Rate Blood Pressure (mmHg) O2 Sat by Pulse Oximetry 08/23/17 08/23/17 08/23/17 06:31 06:34 08:27 Temperature 97.7 F Pulse Rate 64 Respiratory 18 18 20 Rate Blood Pressure 154/59 (mmHg) O2 Sat by Pulse 97 Oximetry 08/23/17 08/23/17 08/23/17 08:28 08:38 09:36 Temperature Pulse Rate Respiratory 20 22 Rate Blood Pressure (mmHg) O2 Sat by Pulse 97 Oximetry 08/23/17 08/23/17 08/23/17 10:27 11:26 13:05 Temperature Pulse Rate Respiratory 18 18 18 Rate Blood Pressure (mmHg) O2 Sat by Pulse Oximetry 08/23/17 08/23/17 08/23/17 14:14 15:05 15:55 Temperature Pulse Rate Respiratory 18 22 Rate Blood Pressure (mmHg) O2 Sat by Pulse 97 Oximetry 08/23/17 08/23/17 08/23/17 16:09 16:14 17:19 Temperature 98.2 F Pulse Rate 62 64 Respiratory 20 22 Rate Blood Pressure 140/88 (mmHg) O2 Sat by Pulse 97 Oximetry 08/23/17 08/23/17 08/23/17 21:24 21:25 23:10 Temperature Pulse Rate Respiratory 22 22 24 Rate Blood Pressure (mmHg) O2 Sat by Pulse 98 Oximetry 08/23/17 08/23/17 08/24/17 23:24 23:25 05:59 Temperature 98.0 F Pulse Rate 93 Respiratory 20 20 18 Rate Blood Pressure 155/80 (mmHg) O2 Sat by Pulse 99 Oximetry 08/24/17 08/24/17 08/24/17 07:57 08:43 08:51 Temperature Pulse Rate Respiratory 22 20 Rate Blood Pressure (mmHg) O2 Sat by Pulse 99 Oximetry 10/12/17 10/12/17 10/12/17 09:43 10:43 13:10 Temperature Pulse Rate Respiratory 20 18 18 Rate Blood Pressure (mmHg) O2 Sat by Pulse Oximetry 08/24/17 08/24/17 08/24/17 14:30 15:10 16:16 Temperature 98.0 F Pulse Rate 86 Respiratory 20 16 21 Rate Blood Pressure 138/71 (mmHg) O2 Sat by Pulse 100 Oximetry 08/24/17 08/24/17 08/24/17 16:30 18:06 20:00 Temperature Pulse Rate 67 Respiratory 16 16 Rate Blood Pressure (mmHg) O2 Sat by Pulse 100 Oximetry 08/24/17 08/24/17 08/25/17 21:17 23:17 01:17 Temperature Pulse Rate Respiratory 16 16 14 Rate Blood Pressure (mmHg) O2 Sat by Pulse Oximetry 08/25/17 08/25/17 08/25/17 03:17 04:52 06:13 Temperature 98.4 F Pulse Rate 80 Respiratory 16 20 Rate Blood Pressure 177/91 (mmHg) O2 Sat by Pulse 100 98 Oximetry 08/25/17 08/25/17 08:11 09:03 Temperature Pulse Rate Respiratory 20 Rate Blood Pressure 151/71 (mmHg) O2 Sat by Pulse Oximetry PE: General: no acute distress. Alert and appropriate. Lungs: clear bilaterally. CV: irregularly irregular. Abdomen: soft, non-tender, non-distended. Ext: No edema. Neuro: Tremor in chair similar to yesterday. Motor 5/5 bilateral upper and lower extremities. Assessment/Plan: 77 yo woman with pelvic/sacral ala fractures and left AC fracture. Recurrent UTI. Hospital acquired Pneumonia. 1. Pelvic fracture/Sacral ALA fracture: wbat. Continue PT/OT 2. Left shoulder acromion fracture: to follow-up with orthopedics in [place]. She needs to take copies of images with her at discharge. 3. ID: s/p 5 days of cefipime for hospital acquired pneumonia and klebsiella pneumonia UTI. I spoke to Dr. Ayala. Plan to stop cefipime today and see how she does. 4. Large and small fiber neuropathy long-standing: Chronically on Prednisone 20mg and monthly IVIg infusions with her neurologist in [place]. She missed an infusion in July but plans to just resume once back in [place]. 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 5. DVT prophylaxis: Eliquis 6. Atrial fib: Eliquis/Digoxin 7. Ulcerative Colitis: stable at present 8. Code Status/Advanced Directives: Full code. 9. Disposition: ? Home with son 08/29/17
[2017-08-25] MEDS: Digoxin TAB* 0.25 MG PO SCH (18:01)
[2017-08-25] MEDS: Atorvastatin* 10 MG TAB PO SCH (18:02)
[2017-08-26] MEDS: HYDROcodone/ACETAMIN 5-325 MG* 1 TAB PO PRN (00:24)
[2017-08-26] MEDS: UCERIS PO PRN (09:59)
[2017-08-26] MEDS: Apixaban* 5 MG TAB PO SCH ×2 (10:00→21:04)
[2017-08-26] MEDS: Gabapentin CAP(*) 300 MG PO SCH ×3 (10:00→21:04)
[2017-08-26] MEDS: predniSONE TAB* 10 MG PO SCH (10:01)
[2017-08-26] MEDS: PTO:Mesalamine (NF) 1.2 GM TAB PO SCH (10:02)
[2017-08-26] MEDS: PTO:Nebivolol (NF) 10 MG TAB PO SCH (10:02)
--- NOTE | 2017-08-26 10:05 | RAD ---
INDICATION: Pneumonia. COMPARISON: Comparison is made with a prior chest x-ray study from August 20, 2017. TECHNIQUE: AP and lateral views of the chest were obtained. FINDINGS: The heart is within normal limits in size for this AP exam. Mediastinal contours appear normal. There is an infiltrate present laterally at the left lung base which appears slightly less dense and slightly smaller than on the prior exam consistent with interval improvement. The right lung appears clear. No pleural effusion is seen. There is flattening of the diaphragms consistent with chronic obstructive pulmonary disease. IMPRESSION: LEFT BASILAR INFILTRATE SLIGHTLY IMPROVED.
--- NOTE | 2017-08-26 10:57 | PN ---
Progress Note - Progress Note Date of Service: 08/26/17 Note: Pt visited. Nursing and therapy note reviewed. Today she feels completely exhausted but does not know why. She can't put her finger on it. No chest pain , shortness of breath or abdominal pain. She does not want to eat or get out of bed. Temp Pulse Resp BP Pulse Ox 98.1 F 53 18 129/63 95 08/26/17 06:38 08/26/17 06:38 08/26/17 10:00 08/26/17 06:38 08/26/17 06:38 Just checked O2sat 92% on room air. PE: General: no acute distress. Alert and appropriate. Lungs: clear bilaterally. CV: irregularly irregular. Abdomen: soft, non-tender, non-distended. Ext: No edema. Neuro: No tremor while in bed. Motor 5/5 bilateral upper and lower extremities. CXR 08/26/17 shows left basilar infitrate slightly improved. Blood cultured negative x4 days. Assessment/Plan: 77 yo woman with pelvic/sacral ala fractures and left AC fracture. Recurrent UTI. Hospital acquired Pneumonia. 1. Pelvic fracture/Sacral ALA fracture: wbat. Continue PT/OT 2. Left shoulder acromion fracture: to follow-up with orthopedics in [place]. She needs to take copies of images with her at discharge. 3. ID: s/p 5 days of cefipime for hospital acquired pneumonia and klebsiella pneumonia UTI (last dose 1500 on 08/25/17). She seems to have return of malaise of last weekend when pneumonia was diagnosed. Labs ordered and I will talk to Dr. Ayala and/or hospitalist. 4. Large and small fiber neuropathy long-standing: Chronically on Prednisone 20mg and monthly IVIg infusions with her neurologist in [place]. She missed an infusion in July but plans to just resume once back in [place]. 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 5. DVT prophylaxis: Eliquis 6. Atrial fib: Eliquis/Digoxin 7. Ulcerative Colitis: stable at present 8. Code Status/Advanced Directives: Full code. 9. Disposition: ? Home with son 08/29/17
[2017-08-26 12:27] LABS: Hematocrit 31 % (35-47); Hemoglobin 10.2 g/dl (12.0-16.0); Mean Corpuscular HGB Conc 33 g/dl (31-36); Mean Corpuscular Hemoglobin 32 pg (27-31); Mean Corpuscular Volume 98 fL (80-97); Mean Platelet Volume 8 um3 (7.4-10.4); Red Blood Count 3.15 10^6/ul (4.0-5.4); Red Cell Distribution Width 17 % (10.5-15); White Blood Count 8.8 10^3/ul (3.5-10.8)
[2017-08-26 12:43] LABS: BUN/Creatinine Ratio 27.7 (8-20); C Reactive Protein 22.44 mg/L (< 5.00); Calcium 8.9 mg/dL (8.6-10.3); EGFR Non-African American 88.6 (>60); Globulin 3.1 g/dL (2-4); Potassium 3.8 mmol/L (3.5-5.0); Total Bilirubin 0.7 mg/dL (0.2-1.0); Total Protein 6.1 g/dL (6.4-8.9)
[2017-08-26 13:06] LABS: Add Diff/Slide Review? Slide Review Added; Comments Flag Yes
[2017-08-26] MEDS: Triamcinolone 0.025% OINT * 15 GM TUBE TOPICAL SCH ×3 (13:06→21:03)
[2017-08-26 14:48] LABS: Eosinophils % 1 % (0-6); Immature Granulocytes 17 % (0-9); Metamyelocytes % 3 % (0-2); Myelocytes % 3 % (0-1); Neutrophil % 80 % (38-83); Promyelocytes % 1 %
[2017-08-26 14:49] LABS: Polychromasia 1+
[2017-08-26] MEDS: CMC:Cyclosporine 0.05% OPHTH (NF) 0.4 ML VIAL BOTH EYES SCH ×2 (14:52→21:04)
[2017-08-26] MEDS: Calcium/Vitamin D TAB 250/125* TAB PO SCH (14:52)
[2017-08-26] MEDS: SYSTANE BOTH EYES SCH ×2 (14:53→21:25)
[2017-08-26] MEDS: Lisinopril TAB* 10 MG PO SCH (14:53)
[2017-08-26] MEDS: Spironolactone TAB* 25 MG PO SCH ×2 (14:53→15:23)
[2017-08-26] MEDS: Nystatin TOP POWDER* 15 GM BTL TOPICAL SCH ×2 (14:53→21:25)
[2017-08-26] MEDS: Furosemide TAB* 20 MG PO SCH ×2 (14:53→15:23)
[2017-08-26] MEDS ORDERED: NS 0.9% 1000 ML* 1,000 ML IV SCH (15:00)
[2017-08-26] MEDS: BETAMETHASONE VALERATE 0.1% TOPICAL SCH ×3 (15:06→21:05)
--- NOTE | 2017-08-26 17:00 | PN ---
Subjective Date of Service: 08/26/17 Interval History: Called by [facility] to re-evaluate patient. This morning patient was complaining of significant fatigue, said she did not want to eat or drink, all she wanted to do was sleep. Said this is how she felt prior to PNA diagnosis. 2 days ago felt better, yesterday fatigue began and worsened this morning. Denies chest pain, cough. Feels SOB at times, like she can't take a full breath. Remains off O2. In the afternoon today feeling a bit better. Also complaining of small "bump" on her R wrist, says she had a similar episode in the past that was worse and she received a diagnosis from dermatology but cannot recall, was not cellulitis or shingles. Family History: Unchanged from Admission Social History: Unchanged from Admission Past Medical History: Unchanged from Admission Objective Active Medications: Acetaminophen (Tylenol Tab*) 650 mg PO Q6H PRN Hydrocodone Bitart/Acetaminophen ([place] 5-325 Tab*) 2 tab PO Q4H PRN Apixaban (Eliquis*) 5 mg PO BID [facility] Atorvastatin Calcium (Lipitor*) 10 mg PO 1700 [facility] Betamethasone Valerate (Valisone 0.1% Cm(Nf)) 1 applic TOPICAL TID [facility] Bisacodyl (Dulcolax Supp*) 10 mg HI DAILY PRN Calcium/Vitamin D (Oscal D Tab 250/125*) 1 tab PO DAILY [facility] Cyclosporine (Restasis 0.05% Ophth) 1 drop BOTH EYES Q12HR [facility] Digoxin (Lanoxin Tab*) 0.25 mg PO 1700 [facility] Docusate Sodium (Colace Cap*) 100 mg PO BID PRN Furosemide (Lasix Tab*) 20 mg PO DAILY [facility] Gabapentin (Neurontin Cap(*)) 600 mg PO TID [facility] Sodium Chloride (Ns 0.9% 1000 Ml*) 1,000 mls @ 100 mls/hr IV PER RATE [facility] Lisinopril (Prinivil Tab*) 10 mg PO DAILY [facility] Mesalamine (Lialda (Nf)) 2.4 gm PO DAILY [facility] Nebivolol (Bystolic (Nf)) 10 mg PO DAILY [facility] Pto Non Formulary Med* (Systane 1 Drop ) 1 drop BOTH EYES BID [facility] Pto: Uceris ( Budesonide Er 9mg Tablets) 1 dose PO DAILY PRN Nystatin (Nystatin Top Powder*) 1 applic TOPICAL BID [facility] Prednisone (Deltasone Tab*) 20 mg PO DAILY [facility] Senna (Senokot Tab*) 2 tab PO BEDTIME PRN Spironolactone (Aldactone Tab*) 25 mg PO DAILY [facility] Tramadol HCl (Ultram*) 50 mg PO Q6H PRN Triamcinolone Acetonide (Triamcinolone 0.025% Oint *) 1 applic TOPICAL TID [facility] Vital Signs 08/25/17 08/25/17 08/25/17 16:56 18:01 20:18 Temperature Pulse Rate 64 Respiratory 20 Rate Blood Pressure (mmHg) O2 Sat by Pulse 97 Oximetry 08/26/17 08/26/17 08/26/17 00:24 02:24 06:38 Temperature 98.1 F Pulse Rate 53 Respiratory 17 12 16 Rate Blood Pressure 129/63 (mmHg) O2 Sat by Pulse 97 95 Oximetry 08/26/17 08/26/17 08/26/17 10:00 12:00 14:31 Temperature 98.7 F Pulse Rate 58 Respiratory 18 18 Rate Blood Pressure 147/58 (mmHg) O2 Sat by Pulse 95 Oximetry 08/26/17 08/26/17 15:13 15:23 Temperature 98.4 F Pulse Rate 89 Respiratory 22 20 Rate Blood Pressure 137/73 (mmHg) O2 Sat by Pulse 96 Oximetry Oxygen Devices in Use Now: None Appearance: Elderly, F, sitting in chair in NAD Eyes: No Scleral Icterus Ears/Nose/Mouth/Throat: Mucous Membranes Moist Neck: NL Appearance and Movements; NL JVP Respiratory: Symmetrical Chest Expansion and Respiratory Effort, Clear to Auscultation Cardiovascular: NL Sounds; No Murmurs; No JVD, RRR Abdominal: NL Sounds; No Tenderness; No Distention Lymphatic: No Cervical Adenopathy Extremities: No Edema Skin: - - Small single vesicle over R wrist, non-tender, ?surrounding erythema, no warmth Neurological: Alert and Oriented x 3 Result Diagrams: 08/26/17 12:16 08/26/17 12:16 Assess/Plan/Problems-Billing Assessment: This is a 77 yo female with peripheral neuropathy on chronic steroids, UC, atrial fibrillation who is a patient in PMRU recovering from pubic rami fractures with complaints of weakness found to likely have HCAP. - Patient Problems (1) HCAP (healthcare-associated pneumonia) Current Visit: Yes Comment: Large LLL infiltrate with c/o weakness and noted hypoxia on 08/20 ID consulted, now s/p 5 days of Cefepime CRP trending down and procalcitonin negative. Unclear if her fatigue represents worsening/persistent infection, hold on additional ABx for now. Does have mild lactic acidosis, will give some IVF overnight. Will recheck blood work in AM, if concerning or if patient spikes a fever can resume Cefepime for a 7-[address] Ayala re-evaluate. Recommend regular use of flutter valve (2) Pelvic fracture Current Visit: No Comment: Superior and inferior pubic rami fractures Cont care per PMRU (3) Peripheral neuropathy Current Visit: No Comment: Continue Gabapentin Steroid therapy has been tapered, but still continued (4) Atrial fibrillation Current Visit: No Comment: On Eliquis. Rate controlled with Bystolic and Digoxin. (5) Ulcerative colitis Current Visit: No Comment: Continue Mesalamine. (6) DVT prophylaxis Current Visit: No Comment: Patient on Eliquis
[2017-08-26] MEDS: Atorvastatin* 10 MG TAB PO SCH (17:16)
[2017-08-26] MEDS: Digoxin TAB* 0.25 MG PO SCH (17:17)
[2017-08-27 07:22] LABS: Hematocrit 29 % (35-47); Hemoglobin 9.9 g/dl (12.0-16.0); Mean Corpuscular HGB Conc 34 g/dl (31-36); Mean Corpuscular Hemoglobin 33 pg (27-31); Mean Corpuscular Volume 97 fL (80-97); Red Blood Count 3.05 10^6/ul (4.0-5.4); Red Cell Distribution Width 17 % (10.5-15); White Blood Count 7.2 10^3/ul (3.5-10.8)
[2017-08-27 07:31] LABS: Add Diff/Slide Review? Slide Review Added; Comments Flag Yes
[2017-08-27] MEDS: Gabapentin CAP(*) 300 MG PO SCH ×3 (09:57→20:28)
[2017-08-27] MEDS: Apixaban* 5 MG TAB PO SCH ×2 (09:57→20:28)
[2017-08-27] MEDS: Lisinopril TAB* 10 MG PO SCH (09:58)
[2017-08-27] MEDS: predniSONE TAB* 10 MG PO SCH (09:58)
[2017-08-27] MEDS: Furosemide TAB* 20 MG PO SCH (10:00)
[2017-08-27] MEDS: Spironolactone TAB* 25 MG PO SCH (10:00)
[2017-08-27] MEDS: Calcium/Vitamin D TAB 250/125* TAB PO SCH (10:00)
[2017-08-27] MEDS: PTO:Nebivolol (NF) 10 MG TAB PO SCH (10:01)
[2017-08-27] MEDS: PTO:Mesalamine (NF) 1.2 GM TAB PO SCH (10:01)
[2017-08-27] MEDS: Triamcinolone 0.025% OINT * 15 GM TUBE TOPICAL SCH ×3 (10:04→20:28)
[2017-08-27] MEDS: CMC:Cyclosporine 0.05% OPHTH (NF) 0.4 ML VIAL BOTH EYES SCH ×2 (10:05→20:32)
[2017-08-27] MEDS: Nystatin TOP POWDER* 15 GM BTL TOPICAL SCH ×2 (10:05→20:32)
[2017-08-27] MEDS: BETAMETHASONE VALERATE 0.1% TOPICAL SCH ×3 (10:05→20:32)
[2017-08-27] MEDS: SYSTANE BOTH EYES SCH ×2 (10:05→20:32)
--- NOTE | 2017-08-27 10:32 | PN ---
Progress Note - Progress Note Date of Service: 08/27/17 Note: Patient visited. Nursing and hospitalist notes reviewed. Antibiotics were not restarted with normal procalcitonin, but she did get 1L IVF. She does feel better this morning, but not perfect. She has made multiple trips to the bathroom and ate breakfast. No chest pain, shortness of breath or abdominal pain. She notes recurrence of a bump on her right forearm that was treated in the past by her [employer] technician in [place]. Initially it started at her elbow about 4 months ago. She gets cutaneous pustules then a deeper lump. She has had oral and topical antibiotics for this in the past and it was biopsied. She does not know the name of the medications, but knows that doxycycline gave her diarrhea and she refused to take it. Temp Pulse Resp BP Pulse Ox 98.5 F 82 20 158/88 95 08/27/17 05:09 08/27/17 05:09 08/27/17 09:57 08/27/17 05:09 08/27/17 05:09 PE: General: no acute distress. Alert and appropriate. Lungs: clear bilaterally. CV: irregularly irregular. Abdomen: soft, non-tender, non-distended. Ext: No edema. Right dorsal forearm with small pustule. She has me palpate more proximally to appreciate some deeper nodules. Non-tender and no erythema. Neuro: Tremor while in chair, stable. Motor 5/5 bilateral upper and lower extremities. Laboratory Results - last 24 hr 08/26/17 08/26/17 08/26/17 12:16 12:16 12:16 WBC 8.8 RBC 3.15 L Hgb 10.2 L Hct 31 L MCV 98 H MCH 32 H MCHC 33 RDW 17 H Plt Count 273 MPV 8 Immature Gran % (Auto) 17 H Neut % (Auto) 93.4 H Lymph % (Auto) 3.[address] [place] % (Auto) 2.1 Eos % (Auto) 0.7 Baso % (Auto) 0.7 Absolute Neuts (auto) 8.2 H Absolute Lymphs (auto) 0.3 L Absolute Monos (auto) 0.2 Absolute Eos (auto) 0.1 Absolute Basos (auto) 0.1 Absolute Nucleated RBC 0.02 Neutrophils % 80 Band Neutrophils % 10 H Lymphocytes % 2 L Eosinophils % 1 Metamyelocytes % 3 H Myelocytes % 3 H Promyelocytes % 1 Nucleated RBC % 0.2 Nucleated RBCs/100 WBC 1 H Normal RBC Morphology Not Reportable Polychromasia 1+ Sodium 138 Potassium 3.8 Chloride 104 Carbon Dioxide 26 Anion Gap 8 BUN 18 Creatinine 0.65 Est GFR ( Amer) 114.0 Est GFR (Non-Af Amer) 88.6 BUN/Creatinine Ratio 27.7 H Glucose 83 Lactic Acid 2.6 H* Calcium 8.9 Total Bilirubin 0.70 AST 32 ALT 53 H Alkaline Phosphatase 193 H C-Reactive Protein 22.44 H Total Protein 6.1 L Albumin 3.0 L Globulin 3.1 Albumin/Globulin Ratio 1.0 Procalcitonin 08/26/17 08/27/17 08/27/17 12:17 06:57 06:57 WBC 7.2 RBC 3.05 L Hgb 9.9 L Hct 29 L MCV 97 MCH 33 H MCHC 34 RDW 17 H Plt Count MPV [employer]er Immature Gran % (Auto) Neut % (Auto) 88.6 H Lymph % (Auto) 7.[address] [place] % (Auto) 3.8 Eos % (Auto) 0.1 Baso % (Auto) 0.2 Absolute Neuts (auto) 6.3 Absolute Lymphs (auto) 0.5 L Absolute Monos (auto) 0.3 Absolute Eos (auto) 0 Absolute Basos (auto) 0 Absolute Nucleated RBC 0.01 Neutrophils % Band Neutrophils % Lymphocytes % Eosinophils % Metamyelocytes % Myelocytes % Promyelocytes % Nucleated RBC % 0.2 Nucleated RBCs/100 WBC Normal RBC Morphology Polychromasia Sodium Potassium Chloride Carbon Dioxide Anion Gap BUN Creatinine Est GFR ( Amer) Est GFR (Non-Af Amer) BUN/Creatinine Ratio Glucose Lactic Acid 2.3 H* Calcium Total Bilirubin AST ALT Alkaline Phosphatase C-Reactive Protein Total Protein Albumin Globulin Albumin/Globulin Ratio Procalcitonin 0.3 08/27/17 06:57 WBC RBC Hgb Hct MCV MCH MCHC RDW Plt Count MPV Immature Gran % (Auto) Neut % (Auto) Lymph % (Auto) [place] % (Auto) Eos % (Auto) Baso % (Auto) Absolute Neuts (auto) Absolute Lymphs (auto) Absolute Monos (auto) Absolute Eos (auto) Absolute Basos (auto) Absolute Nucleated RBC Neutrophils % Band Neutrophils % Lymphocytes % Eosinophils % Metamyelocytes % Myelocytes % Promyelocytes % Nucleated RBC % Nucleated RBCs/100 WBC Normal RBC Morphology Polychromasia Sodium Potassium Chloride Carbon Dioxide Anion Gap BUN Creatinine Est GFR ( Amer) Est GFR (Non-Af Amer) BUN/Creatinine Ratio Glucose Lactic Acid Calcium Total Bilirubin AST ALT Alkaline Phosphatase C-Reactive Protein Total Protein Albumin Globulin Albumin/Globulin Ratio Procalcitonin 0.2 CXR 08/26/17 shows left basilar infitrate slightly improved. Blood cultured negative x5 days, final. Assessment/Plan: 77 yo woman with pelvic/sacral ala fractures and left AC fracture. Recurrent UTI. Hospital acquired Pneumonia. 1. Pelvic fracture/Sacral ALA fracture: wbat. Continue PT/OT 2. Left shoulder acromion fracture: to follow-up with orthopedics in [place]. She needs to take copies of images with her at discharge. 3. Hospital acquired pneumonia and klebsiella pneumonia UTI (s/p 5 days of cefepime, last dose 1500 on 08/25/17). Appreciate hospitalist f/u. Given low procalcitonin, it seems less likely that she needs ongoing antibiotics. Lactic acid trending down. ID f/u tomorrow for this as well as right forearm issue which is new. 4. Right forearm recurrent abscesses: The only information I have on this is from the patient and what is mentioned in her neurologist's note from [place]. 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 norcardia. She was prescribed doxycycline but could not tolerate because of diarrhea." Linda called her son in [place] and he is looking at her house for the topical rx and will also call her [employer] technician tomorrow to see what oral medication she took for it. Will ask ID to render an opinion on this as well. 5. Large and small fiber neuropathy long-standing: Chronically on Prednisone 20mg and monthly IVIg infusions with her neurologist in [place]. She missed an infusion in July but plans to just resume once back in [place]. 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 6. DVT prophylaxis: Eliquis 7. Atrial fib: Eliquis/Digoxin 8. Ulcerative Colitis: stable at present 9. Code Status/Advanced Directives: Full code. 10. Disposition: ? Home with son 08/29/17
--- NOTE | 2017-08-27 10:51 | PN ---
Subjective Date of Service: 08/27/17 Interval History: Patient seen this morning. Says she is feeling much better this morning, more energy, denies SOB. No fever or chills. Had breakfast this morning. Was up frequently overnight urinating 2/2 IVF. Says her son is going to try to find notes from the power plant operators supervisor about her previous wrist infection. Spoke with Dr. Carreno who noted that on fax received it was mentioned the patient had biopsies done and may have had AFB present. Patient denies any pain or discomfort at this time. Family History: Unchanged from Admission Social History: Unchanged from Admission Past Medical History: Unchanged from Admission Objective Active Medications: Acetaminophen (Tylenol Tab*) 650 mg PO Q6H PRN Hydrocodone Bitart/Acetaminophen ([place] 5-325 Tab*) 2 tab PO Q4H PRN Apixaban (Eliquis*) 5 mg PO BID [facility] Atorvastatin Calcium (Lipitor*) 10 mg PO 1700 [facility] Betamethasone Valerate (Valisone 0.1% Cm(Nf)) 1 applic TOPICAL TID [facility] Bisacodyl (Dulcolax Supp*) 10 mg [place] DAILY PRN Calcium/Vitamin D (Oscal D Tab 250/125*) 1 tab PO DAILY [facility] Cyclosporine (Restasis 0.05% Ophth) 1 drop BOTH EYES Q12HR [facility] Digoxin (Lanoxin Tab*) 0.25 mg PO 1700 [facility] Docusate Sodium (Colace Cap*) 100 mg PO BID PRN Furosemide (Lasix Tab*) 20 mg PO DAILY [facility] Gabapentin (Neurontin Cap(*)) 600 mg PO TID [facility] Lisinopril (Prinivil Tab*) 10 mg PO DAILY [facility] Mesalamine (Lialda (Nf)) 2.4 gm PO DAILY [facility] Nebivolol (Bystolic (Nf)) 10 mg PO DAILY [facility] Pto Non Formulary Med* (Systane 1 Drop ) 1 drop BOTH EYES BID [facility] Pto: Uceris ( Budesonide Er 9mg Tablets) 1 dose PO DAILY PRN Nystatin (Nystatin Top Powder*) 1 applic TOPICAL BID [place] Prednisone (Deltasone Tab*) 20 mg PO DAILY [facility] Senna (Senokot Tab*) 2 tab PO BEDTIME PRN Spironolactone (Aldactone Tab*) 25 mg PO DAILY [facility] Tramadol HCl (Ultram*) 50 mg PO Q6H PRN Triamcinolone Acetonide (Triamcinolone 0.025% Oint *) 1 applic TOPICAL TID [place] Vital Signs 08/26/17 08/26/17 08/26/17 12:00 14:31 15:13 Temperature 98.7 F 98.4 F Pulse Rate 58 89 Respiratory 18 22 Rate Blood Pressure 147/58 137/73 (mmHg) O2 Sat by Pulse 95 96 Oximetry 08/27/17 08/27/17 05:09 09:57 Temperature 98.5 F Pulse Rate 82 Respiratory 20 20 Rate Blood Pressure 158/88 (mmHg) O2 Sat by Pulse 95 Oximetry Oxygen Devices in Use Now: None Appearance: Elderly, F, laying in bed in NAD Eyes: No Scleral Icterus Ears/Nose/Mouth/Throat: Mucous Membranes Moist Neck: NL Appearance and Movements; NL JVP Respiratory: Symmetrical Chest Expansion and Respiratory Effort, - - Trace rales in R base, otherwise clear Cardiovascular: - - IRIR, PIPE Abdominal: NL Sounds; No Tenderness; No Distention Lymphatic: No Cervical Adenopathy Extremities: No Edema Skin: - - Small vesicle on dorsum of R wrist with some surrounding discoloration , no edema, no warmth or tenderness Neurological: Alert and Oriented x 3 Result Diagrams: 08/27/17 06:57 08/26/17 12:16 Assess/Plan/Problems-Billing Assessment: This is a 77 yo female with peripheral neuropathy on chronic steroids, UC, atrial fibrillation who is a patient in PMRU recovering from pubic rami fractures with complaints of weakness found to likely have HCAP. - Patient Problems (1) HCAP (healthcare-associated pneumonia) Current Visit: Yes Comment: Large LLL infiltrate with c/o weakness and noted hypoxia on 08/20 ID consulted, now s/p 5 days of Cefepime Labs stable, would hold on any further ABx at this time, Dr. Ayala can re- evaluate tomorrow Recommend regular use of flutter valve (2) Skin lesion of wrist Current Visit: Yes Comment: Unclear etiology at this time but seems that patient may have had recurrent infections with ?AFB. Try to obtain clarification through records tomorrow. PMR to ask Dr. Ayala to evaluate as well. (3) Pelvic fracture Current Visit: No Comment: Superior and inferior pubic rami fractures Cont care per PMRU (4) Peripheral neuropathy Current Visit: No Comment: Continue Gabapentin Steroid therapy has been tapered, but still continued (5) Atrial fibrillation Current Visit: No Comment: On Eliquis. Rate controlled with Bystolic and Digoxin. (6) Ulcerative colitis Current Visit: No Comment: Continue Mesalamine. (7) DVT prophylaxis Current Visit: No Comment: Patient on Eliquis Status and Disposition: Improving HCAP.
[2017-08-27] MEDS: Atorvastatin* 10 MG TAB PO SCH (17:34)
[2017-08-27] MEDS: Digoxin TAB* 0.25 MG PO SCH (17:34)
[2017-08-28] MEDS: BETAMETHASONE VALERATE 0.1% TOPICAL SCH ×3 (10:07→21:10)
[2017-08-28] MEDS: Triamcinolone 0.025% OINT * 15 GM TUBE TOPICAL SCH ×3 (10:31→21:08)
[2017-08-28] MEDS: Furosemide TAB* 20 MG PO SCH (10:32)
[2017-08-28] MEDS: predniSONE TAB* 10 MG PO SCH (10:32)
[2017-08-28] MEDS: Calcium/Vitamin D TAB 250/125* TAB PO SCH (10:32)
[2017-08-28] MEDS: PTO:Mesalamine (NF) 1.2 GM TAB PO SCH (10:34)
[2017-08-28] MEDS: Gabapentin CAP(*) 300 MG PO SCH ×3 (10:35→21:05)
[2017-08-28] MEDS: Lisinopril TAB* 10 MG PO SCH (10:38)
[2017-08-28] MEDS: Apixaban* 5 MG TAB PO SCH ×2 (10:38→21:06)
[2017-08-28] MEDS: PTO:Nebivolol (NF) 10 MG TAB PO SCH (10:39)
[2017-08-28] MEDS: Spironolactone TAB* 25 MG PO SCH (10:39)
[2017-08-28] MEDS: Nystatin TOP POWDER* 15 GM BTL TOPICAL SCH ×2 (10:42→21:10)
[2017-08-28] MEDS: SYSTANE BOTH EYES SCH ×2 (10:42→21:11)
[2017-08-28] MEDS: CMC:Cyclosporine 0.05% OPHTH (NF) 0.4 ML VIAL BOTH EYES SCH ×2 (10:42→21:09)
--- NOTE | 2017-08-28 17:14 | PN ---
Progress Note - Progress Note Date of Service: 08/28/17 Note: Linda visited. Therapy notes read and reviewed. Events of last week reviewed. She has had more trouble transferring off a commode today. I discussed the options with Linda and her son, Zackery, today. They do not wish to pursue subacute rehab in a SNF. They are looking to add services into the home for a discharge later this week. Zackery is going to start with the Registry, may need to call an agency. She feels better than when I left. Discussed case with Dr. Carreno. Current Medications Acetaminophen (Tylenol Tab*) 650 mg PO Q6H PRN PRN Reason: FEVER/PAIN Last Admin: 08/08/17 05:37 Dose: 650 mg Hydrocodone Bitart/Acetaminophen ([place] 5-325 Tab*) 2 tab PO Q4H PRN PRN Reason: PAIN - SEVERE Last Admin: 08/26/17 00:24 Dose: 2 tab Apixaban (Eliquis*) 5 mg PO BID [facility] Last Admin: 08/28/17 10:38 Dose: 5 mg Atorvastatin Calcium (Lipitor*) 10 mg PO 1700 [facility] Last Admin: 08/27/17 17:34 Dose: 10 mg Betamethasone Valerate (Valisone 0.1% Cm(Nf)) 1 applic TOPICAL TID [facility] Last Admin: 08/28/17 13:49 Dose: Not Given Bisacodyl (Dulcolax Supp*) 10 mg [place] DAILY PRN PRN Reason: CONSTIPATION Calcium/Vitamin D (Oscal D Tab 250/125*) 1 tab PO DAILY [facility] Last Admin: 08/28/17 10:32 Dose: 1 tab Cyclosporine (Restasis 0.05% Oph) 1 drop BOTH EYES Q12HR [facility] PRN Reason: Protocol Last Admin: 08/28/17 10:42 Dose: Not Given Digoxin (Lanoxin Tab*) 0.25 mg PO 1700 [facility] Last Admin: 08/27/17 17:34 Dose: 0.25 mg Docusate Sodium (Colace Cap*) 100 mg PO BID PRN PRN Reason: CONSTIPATION Furosemide (Lasix Tab*) 20 mg PO DAILY [facility] Last Admin: 08/28/17 10:32 Dose: 20 mg Gabapentin (Neurontin Cap(*)) 600 mg PO TID [facility] Last Admin: 08/28/17 16:38 Dose: Not Given Lisinopril (Prinivil Tab*) 10 mg PO DAILY [facility] Last Admin: 08/28/17 10:38 Dose: 10 mg Mesalamine (Lialda (Nf)) 2.4 gm PO DAILY [facility] Last Admin: 08/28/17 10:34 Dose: 2.4 gm Nebivolol (Bystolic (Nf)) 10 mg PO DAILY [facility] Last Admin: 08/28/17 10:39 Dose: 10 mg Pto Non Formulary Med* (Systane 1 Drop ) 1 drop BOTH EYES BID [facility] Last Admin: 08/28/17 10:42 Dose: Not Given Pto: Uceris ( Budesonide Er 9mg Tablets) 1 dose PO DAILY PRN PRN Reason: diarrhea Last Admin: 08/26/17 09:59 Dose: 1 dose Nystatin (Nystatin Top Powder*) 1 applic TOPICAL BID [facility] Last Admin: 08/28/17 10:42 Dose: 1 applic Prednisone (Deltasone Tab*) 20 mg PO DAILY [facility] Stop: 09/22/17 11:00 Last Admin: 08/28/17 10:32 Dose: 20 mg Senna (Senokot Tab*) 2 tab PO BEDTIME PRN PRN Reason: CONSTIPATION Spironolactone (Aldactone Tab*) 25 mg PO DAILY [facility] Last Admin: 08/28/17 10:39 Dose: 25 mg Tramadol HCl (Ultram*) 50 mg PO Q6H PRN PRN Reason: PAIN - MODERATE TO SEVERE Last Admin: 08/23/17 13:05 Dose: 50 mg Triamcinolone Acetonide (Triamcinolone 0.025% Oint *) 1 applic TOPICAL TID [facility] Last Admin: 08/28/17 16:38 Dose: Not Given Vital Signs Temp Pulse Resp BP Pulse Ox 98.2 F 99 20 109/61 97 08/28/17 15:59 08/28/17 15:59 08/28/17 15:59 08/28/17 15:59 08/28/17 15:59 EXAM: LUNGS: Clear HEART: S1, S2 ABDOMEN: Soft EXTREMITIES: Decreased ROM, left shoulder ASSESSMENT/PLAN: 1. Pelvic fracture/Sacral ALA fracture: Continue PT/OT 2. Left shoulder acromion fracture: will re-eval in [place] 3. Healthcare associated pneumonia: Off IV antibiotics. ID following, hospitalists following 4. DVT prophylaxis: Eliquis 5. Atrial fib: Eliquis/Digoxin 6. Ulcerative Colitis: stable at present 7. Peripheral neuropathy: prednisone, 20 mg 8. Code Status: Full 9. Rash on arm: path report from [place] automobile body repairer helper showed atypical mycobacterium. May ask ID to follow up 10. Disposition: Discharge delayed. As above
[2017-08-28] MEDS: Digoxin TAB* 0.25 MG PO SCH (17:40)
[2017-08-28] MEDS: Atorvastatin* 10 MG TAB PO SCH (17:40)
[2017-08-29] MEDS: CMC:Cyclosporine 0.05% OPHTH (NF) 0.4 ML VIAL BOTH EYES SCH ×2 (08:32→21:41)
[2017-08-29] MEDS: Gabapentin CAP(*) 300 MG PO SCH ×3 (08:32→21:36)
[2017-08-29] MEDS: Calcium/Vitamin D TAB 250/125* TAB PO SCH (08:34)
[2017-08-29] MEDS: Apixaban* 5 MG TAB PO SCH ×2 (08:34→21:35)
[2017-08-29] MEDS: Lisinopril TAB* 10 MG PO SCH (08:34)
[2017-08-29] MEDS: predniSONE TAB* 10 MG PO SCH (08:34)
[2017-08-29] MEDS: Triamcinolone 0.025% OINT * 15 GM TUBE TOPICAL SCH ×3 (08:34→21:41)
[2017-08-29] MEDS: PTO:Nebivolol (NF) 10 MG TAB PO SCH (08:34)
[2017-08-29] MEDS: Furosemide TAB* 20 MG PO SCH (08:34)
[2017-08-29] MEDS: Nystatin TOP POWDER* 15 GM BTL TOPICAL SCH ×2 (08:34→21:42)
[2017-08-29] MEDS: PTO:Mesalamine (NF) 1.2 GM TAB PO SCH (08:34)
[2017-08-29] MEDS: BETAMETHASONE VALERATE 0.1% TOPICAL SCH ×3 (08:38→21:42)
[2017-08-29] MEDS: SYSTANE BOTH EYES SCH ×2 (08:38→21:41)
[2017-08-29] MEDS: Spironolactone TAB* 25 MG PO SCH (08:39)
--- NOTE | 2017-08-29 12:26 | PMRUTEAM ---
PMRU: Goals Current Status: Nursing: Current Status Skin Deviations [Abdominal Other Fold] Skin Deviations [Left Abdomen] Other Skin Deviations [Right Elbow] Other Skin Deviations [Bilateral Rash Groin] Skin Deviations [Bilateral Rash Breast] Skin Deviation Description [ no redness noted Abdominal Fold] Skin Deviation Description [ healed Left Abdomen] Skin Deviation Description [ tegaderm intact Right Elbow] Skin Deviation Description [ nystatin powder applied Bilateral Groin] Skin Deviation Description [ nystatin ordered for HS Bilateral Breast] Bladder Current Status up to br. Bowel Current Status HX of collitis frequent BMs Last BM 08/29 Nutrition Current Status adequate Medication Current Status Denies pain, takes meds as prescribed Physical Therapy: Current Status Bed Mobility Assistance Supervision Transfer Moblility Assistance Supervision Transfer/Bed Mobility Rolling Walker Recommended Devices Transfer Mobility Comment Pt. is able to perform a transfer using a 2 w/w S x 1. Ambulation Assistance Supervision Ambulation Assistive Devices Rolling Walker Number of Feet Patient 150 Ambulated Ambulation Comment Pt. presents an impasroved reciprocal type gait pattern. Stairs Assistance Supervision Stairs Recommended Devices Two Rails Number of Stairs 2 Curb Not Tested Occupational Therapy: Current Status Upper Body Dressing Mod Assist Lower Body Dressing Min Assist Bathing Contact Guard Assist Toileting Contact Guard Assist Toilet Transfer Mod Assist Shower Transfer Contact Guard Assist Eating Independent Instrumental ADL dependent in IADLs Rec Therapy: Current Status Summary of Assessment and RT assessment complete and pt. is aware of Clinical Impression services. Pt. is open to continued leisure visits . Treatment Goals Pt. will engage in leisure activities while on the unit. Treatment Plan Provide RT services and encourage involvement. Social Work: Current Status Discharge Plan return home with home care svs and family support Potential for Family Training pt's family is involved and supportive Anticipated Discharge Home Destination Discharge With return home with home care svs and family support Nutrition: Current Status Monitoring pt eating 50-100% of meals; regular diet. Had some pain this a.m., during which she refused to do ADLs. When visited this afternoon, states that she is feeling better. Daily BMs, but states that she has not had any flare-up of her UC. Has obtained meds for UC from her usual provider in [place]. She did confirm that she does not want nay more milk while she's here, even Lactaid milk. She does not eat cereal for breakfast, so does not need milk at breakfast either. K 4.3. BG 101 . Lactic acid improved from 3.9 to 1.9. Will cont to follow for any further concerns. Goals: Physical Therapy: Initial Goals Bed Mobility Assistance Independent Transfer Mobility Assistance Independent Transfer/Bed Mobility Rolling Walker Recommended Devices Ambulation Independent Ambulation Recommended Devices Rolling Walker Ambulation Distance 150 Stairs Assistance Independent Stair Recommended Devices Two Rails Number of Stairs 10 Physical Therapy: Updated Goals Bed Mobility Assistance Independent Transfer Mobility Assistance Independent Transfer/Bed Mobility Rolling Walker Recommended Devices Ambulation Assistance Independent Ambulation Assistive Devices Rolling Walker Ambulation Distance (ft) 150 Stairs Assistance Independent Stairs Recommended Devices Two Rails Number of Stairs 10 Occupational Therapy: Initial Goals Goals to be Completed in (Days 10-14 days ) Upper Body Bathing Routine Modified Independent with Lower Body Bathing Routine Modified Independent with Upper Body Dressing Routine Modified Independent with Lower Body Dressing Routine Modified Independent with Toilet Hygeine and Clothing Modified Independent with Management Routine Toilet Transfer Routine Modified Independent with Step-In Shower Transfer Modified Independent with Routine Functional Transfers for ADL Modified Independent with Grooming Routine Modified Independent with Feeding Routine Modified Independent with Light Housekeeping Tasks Modified Independent with Nursing: Goals Bladder Goal independent Bowel Goal Supervison Nutrition Goal 100% of all meals Medication Goal independent Nutrition: Goals Intervention Goals 1. adequate po intake to maintain lean body mass without add'l wt gain 2. regulation of bowel pattern without c/o excessive diarrhea (or constipation) Social Work: Goals Discharge Plan return home with home care svs and family support Potential for Family Training pt's family is involved and supportive Anticipated Discharge Home Destination Discharge With return home with home care svs and family support Care Plan: Care Plan ADL's - Improve/Maintain Start: 08/04/17 15:50 Freq: DAILY Status: Active Target: Activity Type Activity Date Activity User E-Sign Co-Sign Detail Recorded Client Recorded Date Recorded By Document 08/25/17 13:22 [id number] 08/25/17 13:22 [id number] 08/25/17 13:22 PMRU Outcome: ADL's/ADL Transfers Orders/Interventions Occupational Therapy Evaluation & Treatment Patient to receive OT 5x/wk for 60-120 Therex min/day Self Care Management Group Therapy UE/LE ADL's with Assist Yes: mod I ADL Transfers with Assist Yes: mod I Toileting: Transfers,Clothing Management Yes: mod I ,Hygeine w/Assist Progression Toward Outcome/Goals Progressing Outcome/Goals Met Pt. continues to progress towards ADL goals. Pt. STS and ability to wash her self continues to improve. Cardiovascular- Improve/Maintain Start: 08/01/17 12:48 Freq: DAILY Status: Active Target: Activity Type Activity Date Activity User E-Sign Co-Sign Detail Recorded Client Recorded Date Recorded By Document 08/29/17 09:55 [id number] 08/29/17 09:57 [id number] 08/29/17 09:55 PMRU Outcome: Cardiovascular Vital Signs q Shift for 48hrs Then BID Yes Daily Weight Ordered No Current Cardiovascular Outcome/Goal Maintain/ Achieve Baseline HR, BP , Perfusion Maintain/ Achieve Hemodynamic Stability Free of Abnormal Cardiac Symptoms Progression Toward Outcome/Goal Progressing Outcome/Goals Met Comment hx of AFIB Communication-Improve/Maintain Start: 08/26/17 20:54 Freq: DAILY Status: Active Target: Activity Type Activity Date Activity User E-Sign Co-Sign Detail Recorded Client Recorded Date Recorded By Document 08/29/17 09:55 [id number] 08/29/17 09:57 [id number] 08/29/17 09:55 PMRU Outcome: Communication/Cognitive Status Outcome/Goals Use Comm Tools/ Devices Makes Needs Known Effectively Progression Toward Outcomes/Goals Progressing DVT Prophylaxis- Improve/Maintain Start: 08/01/17 12:48 Freq: DAILY Status: Complete Target: Activity Type Activity Date Activity User E-Sign Co-Sign Detail Recorded Client Recorded Date Recorded By Document 08/28/17 11:00 [id number] 08/28/17 13:13 [id number] 08/28/17 11:00 PMRU Outcome: DVT Prophylaxis Outcome/Goals Remains Free of DVT Complies with DVT Prophylaxis /Treatment Demonstrates Knowledge of DVT Prevention/ Treatment TEDS Stockings on Every AM, Off at HS Progression Toward Outcome/Goals Progressing Outcome/Goals Met Comment melvin wraps bilaterally Discharge Planning - Improve/Maintain Start: 08/01/17 12:48 Freq: DAILY Status: Active Target: Activity Type Activity Date Activity User E-Sign Co-Sign Detail Recorded Client Recorded Date Recorded By Document 08/29/17 09:55 [id number] 08/29/17 09:57 [id number] 08/29/17 09:55 PMRU Outcome: Discharge Planning Identify Patient Needs yes Update Patient Family No Outcome/Goals Demonstrates Understanding of Discharge Plan Progression Toward Outcome/Goals Progressing Education-Improve/Maintain Start: 08/01/17 12:48 Freq: DAILY Status: Active Target: Activity Type Activity Date Activity User E-Sign Co-Sign Detail Recorded Client Recorded Date Recorded By Document 08/29/17 09:55 [id number] 08/29/17 09:57 [id number] 08/29/17 09:55 PMRU Outcome: Education Outcome/Goals Demonstrate/ Verbalize Understanding of Written Discharge Instructions Encourage Questions Progression Toward Outcome/Goals Progressing /GI-Improve/Maintain Start: 08/01/17 12:48 Freq: DAILY Status: Complete Target: Activity Type Activity Date Activity User E-Sign Co-Sign Detail Recorded Client Recorded Date Recorded By Document 08/28/17 11:00 [id number] 08/28/17 13:13 [id number] 08/28/17 11:00 PMRU Outcome: Genitourinary/ Gastrointestinal Genitourinary- Outcome/Goals Maintain/ Achieve Urinary Continence Maintain/ Achieve Adequate Urinary Output Remain Free of Hospital- Acquired UTI Gastrointestinal-Outcome/Goals Maintain/ Achieve Bowel Regularity in Accordance with Pt's Baseline Prevent Constipation Laxatives as Ordered Progression Toward Outcome/Goals - Progressing Progression Toward Outcome/Goals - GI Progressing Outcome/Goals Met Comment patient encouraged to increase po intake. Medication Administration Start: 08/01/17 12:48 Freq: DAILY Status: Active Target: Activity Type Activity Date Activity User E-Sign Co-Sign Detail Recorded Client Recorded Date Recorded By Document 08/29/17 09:55 [id number] 08/29/17 09:57 [id number] 08/29/17 09:55 PMRU Outcome: Medication Administration Assess Patient Knowledge/Teach Med Yes Education for all Meds Outcome/Goals Patient Independent with Medication Administration at Home Demonstrates Understanding Progression Towards Outcome/Goals Progressing Is Patient Going Home on Lovenox? No Mobility- Improve/Maintain Start: 08/09/17 08:46 Freq: DAILY Status: Active Target: Activity Type Activity Date Activity User E-Sign Co-Sign Detail Recorded Client Recorded Date Recorded By Document 08/25/17 17:11 [id number] 08/25/17 17:11 [id number] 08/25/17 17:11 PMRU Outcome: Mobility Physical Therapy Evaluation and Yes Treatment Activity OOB with Assistance Yes WBAT Yes Device Yes Assistance Yes Patient to be seen 5x/wk for 60-120 min/ Therex day for: Mobility Training Gait Training W/C Mobility Balance Outcome/Goals Maintain/ Achieve Baseline Mobility Status Improve Mobility Status Demonstrates Proper Use of Assistive Devices Free from Complications of Immobility Progression Toward Outcome/Goals Progressing Bed Mobility Yes: independent Transfers Yes: independent with rolling walker. Gait x ft Yes: independent with rolling walker 150' Up/Down Stairs Yes: independent up/ down 10 stairs with 2 rails. Pain/Comfort- Improve/Maintain Start: 08/01/17 12:48 Freq: DAILY Status: Active Target: Activity Type Activity Date Activity User E-Sign Co-Sign Detail Recorded Client Recorded Date Recorded By Document 08/29/17 09:55 [id number] 08/29/17 09:57 [id number] 08/29/17 09:55 PMRU Outcome: Pain/Comfort Outcome/Goals Demonstrates Knowledge and Use of Available Comfort Measures Achieves Acceptable Comfort/Pain Level as Determined by Patient/Condit Maintain Comfort Level Allowing Patient to Fully Participate in Rehab Progression Toward Outcome/Goals Progressing Outcome/Goals Met Demonstrates Knowledge and Use of Available Comfort Measures Outcome/Goals Met Comment pt denies pain Safety- Improve/Maintain Start: 08/01/17 12:48 Freq: DAILY Status: Active Target: Activity Type Activity Date Activity User E-Sign Co-Sign Detail Recorded Client Recorded Date Recorded By Document 08/29/17 09:55 [id number] 08/29/17 09:57 [id number] 08/29/17 09:55 PMRU Outcome: Safety Outcome/Goals Remain Free of Injury or Harm Cooperates with Safety Measures for Least Restrictive Environment Prevent Falls/ Injury Progression Toward Outcome/Goals Progressing Outcome/Goals Met Cooperates with Safety Measures for Least Restrictive Environment Prevent Falls/ Injury Outcome/Goals Met Comment PA in place, ringing appropriately. no attempts to get up independently, pt forgetful Medicine Note: Length of Stay: 2 days Anticipated Discharge Destination: Home Tentative Discharge Date: 08/31/17 Discharged to: home
[2017-08-29] MEDS: UCERIS PO PRN ×2 (14:51→18:23)
--- NOTE | 2017-08-29 17:18 | PN ---
Progress Note - Progress Note Date of Service: 08/29/17 Note: Linda was visited. She was discussed in interdisciplinary team rounds. I met with Linda, her son, Zackery and her daughter in law. They have rented a scooter and are arranging for home care. They will take her home . She continues to fluctuate with therapy, but definitely better today than yesterday. Her spirits are better. Current Medications Acetaminophen (Tylenol Tab*) 650 mg PO Q6H PRN PRN Reason: FEVER/PAIN Last Admin: 08/08/17 05:37 Dose: 650 mg Hydrocodone Bitart/Acetaminophen ([place] 5-325 Tab*) 2 tab PO Q4H PRN PRN Reason: PAIN - SEVERE Last Admin: 08/26/17 00:24 Dose: 2 tab Apixaban (Eliquis*) 5 mg PO BID [facility] Last Admin: 08/29/17 08:34 Dose: 5 mg Atorvastatin Calcium (Lipitor*) 10 mg PO 1700 [facility] Last Admin: 08/28/17 17:40 Dose: 10 mg Betamethasone Valerate (Valisone 0.1% Cm(Nf)) 1 applic TOPICAL TID [facility] Last Admin: 08/29/17 14:24 Dose: Not Given Bisacodyl (Dulcolax Supp*) 10 mg [place] DAILY PRN PRN Reason: CONSTIPATION Calcium/Vitamin D (Oscal D Tab 250/125*) 1 tab PO DAILY [facility] Last Admin: 08/29/17 08:34 Dose: 1 tab Cyclosporine (Restasis 0.05% Oph) 1 drop BOTH EYES Q12HR [facility] PRN Reason: Protocol Last Admin: 08/29/17 08:32 Dose: 1 drop Digoxin (Lanoxin Tab*) 0.25 mg PO 1700 [facility] Last Admin: 08/28/17 17:40 Dose: 0.25 mg Docusate Sodium (Colace Cap*) 100 mg PO BID PRN PRN Reason: CONSTIPATION Furosemide (Lasix Tab*) 20 mg PO DAILY [facility] Last Admin: 08/29/17 08:34 Dose: 20 mg Gabapentin (Neurontin Cap(*)) 600 mg PO TID [facility] Last Admin: 08/29/17 14:23 Dose: 600 mg Lisinopril (Prinivil Tab*) 10 mg PO DAILY [facility] Last Admin: 08/29/17 08:34 Dose: 10 mg Mesalamine (Lialda (Nf)) 2.4 gm PO DAILY [facility] Last Admin: 08/29/17 08:34 Dose: 2.4 gm Nebivolol (Bystolic (Nf)) 10 mg PO DAILY [facility] Last Admin: 08/29/17 08:34 Dose: 10 mg Pto Non Formulary Med* (Systane 1 Drop ) 1 drop BOTH EYES BID [facility] Last Admin: 08/29/17 08:38 Dose: Not Given Pto: Uceris ( Budesonide Er 9mg Tablets) 1 dose PO DAILY PRN PRN Reason: diarrhea Last Admin: 08/29/17 14:51 Dose: 1 dose Nystatin (Nystatin Top Powder*) 1 applic TOPICAL BID [facility] Last Admin: 08/29/17 08:34 Dose: 1 applic Prednisone (Deltasone Tab*) 20 mg PO DAILY [facility] Stop: 09/22/17 11:00 Last Admin: 08/29/17 08:34 Dose: 20 mg Senna (Senokot Tab*) 2 tab PO BEDTIME PRN PRN Reason: CONSTIPATION Spironolactone (Aldactone Tab*) 25 mg PO DAILY [facility] Last Admin: 08/29/17 08:39 Dose: 25 mg Tramadol HCl (Ultram*) 50 mg PO Q6H PRN PRN Reason: PAIN - MODERATE TO SEVERE Last Admin: 08/23/17 13:05 Dose: 50 mg Triamcinolone Acetonide (Triamcinolone 0.025% Oint *) 1 applic TOPICAL TID [facility] Last Admin: 08/29/17 14:24 Dose: 1 applic Vital Signs Temp Pulse Resp BP Pulse Ox 97.8 F 99 20 145/71 95 08/29/17 06:18 08/29/17 06:18 08/29/17 14:23 08/29/17 06:18 08/29/17 09:08 EXAM: LUNGS: Clear HEART: S1, S2 ABDOMEN: Soft EXTREMITIES: Decreased ROM, left shoulder ASSESSMENT/PLAN: 1. Pelvic fracture/Sacral ALA fracture: Continue PT/OT 2. Left shoulder acromion fracture: will re-eval in [place] 3. Healthcare associated pneumonia: Off IV antibiotics. ID following, hospitalists following, resolved 4. DVT prophylaxis: Eliquis 5. Atrial fib: Eliquis/Digoxin 6. Ulcerative Colitis: stable at present 7. Peripheral neuropathy: prednisone, 20 mg 8. Code Status: Full 9. 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 May ask ID to follow up 10. Disposition: Discharge . As above
[2017-08-29] MEDS: Atorvastatin* 10 MG TAB PO SCH (17:20)
[2017-08-29] MEDS: Digoxin TAB* 0.25 MG PO SCH (17:21)
[2017-08-30] MEDS: BETAMETHASONE VALERATE 0.1% TOPICAL SCH ×3 (08:07→21:05)
[2017-08-30] MEDS: Nystatin TOP POWDER* 15 GM BTL TOPICAL SCH ×2 (08:18→21:06)
[2017-08-30] MEDS: Triamcinolone 0.025% OINT * 15 GM TUBE TOPICAL SCH ×3 (08:19→21:06)
[2017-08-30] MEDS: UCERIS PO PRN (08:19)
[2017-08-30] MEDS: Apixaban* 5 MG TAB PO SCH ×2 (08:19→21:03)
[2017-08-30] MEDS: PTO:Nebivolol (NF) 10 MG TAB PO SCH (08:19)
[2017-08-30] MEDS: SYSTANE BOTH EYES SCH ×2 (08:19→21:06)
[2017-08-30] MEDS: Gabapentin CAP(*) 300 MG PO SCH ×3 (08:19→21:03)
[2017-08-30] MEDS: PTO:Mesalamine (NF) 1.2 GM TAB PO SCH (08:19)
[2017-08-30] MEDS: Calcium/Vitamin D TAB 250/125* TAB PO SCH (08:20)
[2017-08-30] MEDS: Spironolactone TAB* 25 MG PO SCH (08:20)
[2017-08-30] MEDS: predniSONE TAB* 10 MG PO SCH (08:20)
[2017-08-30] MEDS: CMC:Cyclosporine 0.05% OPHTH (NF) 0.4 ML VIAL BOTH EYES SCH ×2 (08:20→21:06)
[2017-08-30] MEDS: Furosemide TAB* 20 MG PO SCH (08:20)
[2017-08-30] MEDS: Lisinopril TAB* 10 MG PO SCH (08:20)
[2017-08-30] MEDS: Digoxin TAB* 0.25 MG PO SCH (17:24)
[2017-08-30] MEDS: Atorvastatin* 10 MG TAB PO SCH (17:24)
--- NOTE | 2017-08-30 20:08 | PN ---
Progress Note - Progress Note Date of Service: 08/30/17 Note: Linda visited. Her son, Zackery, has help in the house and she is ready to be discharged tomorrow. She feels ready emotionally. Her pain is well controlled. Still with some needs for ADLs. Current Medications Acetaminophen (Tylenol Tab*) 650 mg PO Q6H PRN PRN Reason: FEVER/PAIN Last Admin: 08/08/17 05:37 Dose: 650 mg Hydrocodone Bitart/Acetaminophen ([place] 5-325 Tab*) 2 tab PO Q4H PRN PRN Reason: PAIN - SEVERE Last Admin: 08/26/17 00:24 Dose: 2 tab Apixaban (Eliquis*) 5 mg PO BID [facility] Last Admin: 08/30/17 08:19 Dose: 5 mg Atorvastatin Calcium (Lipitor*) 10 mg PO 1700 [facility] Last Admin: 08/30/17 17:24 Dose: 10 mg Betamethasone Valerate (Valisone 0.1% Cm(Nf)) 1 applic TOPICAL TID [facility] Last Admin: 08/30/17 13:56 Dose: Not Given Bisacodyl (Dulcolax Supp*) 10 mg [place] DAILY PRN PRN Reason: CONSTIPATION Calcium/Vitamin D (Oscal D Tab 250/125*) 1 tab PO DAILY [facility] Last Admin: 08/30/17 08:20 Dose: 1 tab Cyclosporine (Restasis 0.05% Ophth) 1 drop BOTH EYES Q12HR [facility] PRN Reason: Protocol Last Admin: 08/30/17 08:20 Dose: 1 drop Digoxin (Lanoxin Tab*) 0.25 mg PO 1700 [facility] Last Admin: 08/30/17 17:24 Dose: 0.25 mg Docusate Sodium (Colace Cap*) 100 mg PO BID PRN PRN Reason: CONSTIPATION Furosemide (Lasix Tab*) 20 mg PO DAILY [facility] Last Admin: 08/30/17 08:20 Dose: 20 mg Gabapentin (Neurontin Cap(*)) 600 mg PO TID [facility] Last Admin: 08/30/17 14:29 Dose: 600 mg Lisinopril (Prinivil Tab*) 10 mg PO DAILY [facility] Last Admin: 08/30/17 08:20 Dose: 10 mg Mesalamine (Lialda (Nf)) 2.4 gm PO DAILY [facility] Last Admin: 08/30/17 08:19 Dose: 2.4 gm Nebivolol (Bystolic (Nf)) 10 mg PO DAILY [facility] Last Admin: 08/30/17 08:19 Dose: 10 mg Pto Non Formulary Med* (Systane 1 Drop ) 1 drop BOTH EYES BID [facility] Last Admin: 08/30/17 08:19 Dose: 1 drop Pto: Uceris ( Budesonide Er 9mg Tablets) 1 dose PO DAILY PRN PRN Reason: diarrhea Last Admin: 08/30/17 08:19 Dose: 1 dose Nystatin (Nystatin Top Powder*) 1 applic TOPICAL BID [facility] Last Admin: 08/30/17 08:18 Dose: 1 applic Prednisone (Deltasone Tab*) 20 mg PO DAILY [facility] Stop: 09/22/17 11:00 Last Admin: 08/30/17 08:20 Dose: 20 mg Senna (Senokot Tab*) 2 tab PO BEDTIME PRN PRN Reason: CONSTIPATION Spironolactone (Aldactone Tab*) 25 mg PO DAILY [facility] Last Admin: 08/30/17 08:20 Dose: 25 mg Tramadol HCl (Ultram*) 50 mg PO Q6H PRN PRN Reason: PAIN - MODERATE TO SEVERE Last Admin: 08/23/17 13:05 Dose: 50 mg Triamcinolone Acetonide (Triamcinolone 0.025% Oint *) 1 applic TOPICAL TID [facility] Last Admin: 08/30/17 14:29 Dose: 1 applic Vital Signs Temp Pulse Resp BP Pulse Ox 97.1 F 88 18 116/59 96 08/30/17 15:36 08/30/17 17:24 08/30/17 16:29 08/30/17 15:36 08/30/17 17:41 EXAM: LUNGS: Clear HEART: S1, S2 ABDOMEN: Soft EXTREMITIES: Decreased ROM, left shoulder ASSESSMENT/PLAN: 1. Pelvic fracture/Sacral ALA fracture: Continue PT/OT 2. Left shoulder acromion fracture: will re-eval in [place] 3. Healthcare associated pneumonia: resolved 4. DVT prophylaxis: Eliquis 5. Atrial fib: Eliquis/Digoxin 6. Ulcerative Colitis: stable at present 7. Peripheral neuropathy: prednisone, 20 mg 8. Code Status: Full 9. Rash on arm: path report from [place] moving picture operator showed atypical mycobacterium. Can follow up in [place] 10. Disposition: Discharge Tomorrow. As above
[2017-08-31 06:16] VITALS: BP 126/46
[2017-08-31] MEDS: PTO:Nebivolol (NF) 10 MG TAB PO SCH (08:52)
[2017-08-31] MEDS: Spironolactone TAB* 25 MG PO SCH (08:52)
[2017-08-31] MEDS: CMC:Cyclosporine 0.05% OPHTH (NF) 0.4 ML VIAL BOTH EYES SCH (08:52)
[2017-08-31] MEDS: PTO:Mesalamine (NF) 1.2 GM TAB PO SCH (08:52)
[2017-08-31] MEDS: Triamcinolone 0.025% OINT * 15 GM TUBE TOPICAL SCH (08:53)
[2017-08-31] MEDS: predniSONE TAB* 10 MG PO SCH (08:53)
[2017-08-31] MEDS: Lisinopril TAB* 10 MG PO SCH (08:53)
[2017-08-31] MEDS: Apixaban* 5 MG TAB PO SCH (08:53)
[2017-08-31] MEDS: Gabapentin CAP(*) 300 MG PO SCH (08:53)
[2017-08-31] MEDS: Calcium/Vitamin D TAB 250/125* TAB PO SCH (08:53)
[2017-08-31] MEDS: Furosemide TAB* 20 MG PO SCH (08:53)
[2017-08-31] MEDS: SYSTANE BOTH EYES SCH (08:54)
[2017-08-31] MEDS: BETAMETHASONE VALERATE 0.1% TOPICAL SCH (08:55)
--- NOTE | 2017-09-01 17:52 | DS ---
DISCHARGE SUMMARY: DATE OF ADMISSION: 08/01/17 DATE OF DISCHARGE: 08/31/17 DISCHARGE DIAGNOSES: 1. Left sacral ala fracture. 2. Left superior and inferior pubic rami fractures. 3. Left acromion fracture. 4. Atrial fibrillation. 5. Urinary tract infection. 6. Peripheral neuropathy. 7. Healthcare associated pneumonia. 8. Ulcerative colitis. HISTORY OF ILLNESS AND HOSPITAL COURSE: For complete history the events leading up to her rehab stay please see the History and Physical dictated by me on 08/01/17. While on the rehab unit the patient did have a follow-up x-ray of her left shoulder which showed a dislocated acromial fracture on the left side. An orthopedic opinion with Dr. Oliver was asked for. He felt the left acromion would need to be repaired. A CAT scan was ordered. Dr. Oliver later felt that it would be best handled after her rehab stay and after she had returned to [place]. The patient first had difficulty tolerating pain medications, but with time she was better able to tolerate them and as she was able to tolerate pain medication she was able to do more in therapy. The patient otherwise was fairly stable from a medical point of view until 08/19/17 when she felt that she was having trouble breathing. A chest x- ray was ordered. She was diagnosed with healthcare associated pneumonia. She was put on IV antibiotics. She was treated with IV cefepime. She was also given IV vancomycin at first. An Infectious Disease consult by Dr. Ayala was ordered. Dr. Ayala did not feel the vancomycin was necessary. She received a full course of IV cefepime. The patient slowly improved following that. The patient had a major increase in her tremors. It was felt that the tremors were secondary to peripheral neuropathy. We obtained her records from her neurologist in [place]. We increased her prednisone to 20 mg from 10 mg as she had been tapering her prednisone dose. Her prednisone dose can be reevaluated when she returns to [place]. The patient's son was brought in for family training. It was suggested that they hire extra help as Linda is not able to achieve independence in toileting secondary to her shoulder injuries. Her son Zackery arranged for extra help in the house. He also arranged for a scooter to rent while she is staying in [place]. The plan was for her to go to her son's house and recuperate until she is well enough to fly and then return to her house in [place]. She was discharged home on 08/01/17. DISCHARGE DIET: Regular. DISCHARGE MEDICATIONS: 1. Eliquis 5 mg twice daily. 2. Lipitor 10 mg at 5 p.m. 3. Valisone cream applying topically 3 times a day. 4. Digoxin 0.25 mg daily at 5 p.m. 5. Lasix 20 mg daily. 6. Neurontin 600 mg 3 times daily. 7. [place] 5/325 1 to 2 tablets every 4 hours as needed. 8. Prinivil or lisinopril 10 mg daily. 9. Lialda 2.4 g orally every day. 10. Bystolic 10 mg daily. 11. Aldactone 25 mg daily. 12. Prednisone 20 mg daily. SERVICES AFTER DISCHARGE: She will have home nursing, home physical therapy and a home health aide. FOLLOWUP: Followup with Dr. Bender as needed until she returns to [place] in 2 to 3 weeks. [id number]/[facility] #: [id number] [place]
== END 2017-08-31 13:10 | disposition home health service (06) | DRG 559 ==
LOC: PMRU 10:47
PROVIDERS: ADMIT Physical Medicine & Rehabilitation; ATTEND Physical Medicine & Rehabilitation
PROC: F07Z5ZZ Bed Mobility Treatment (ICD-10-PCS; principal; 2017-08-01)
PROC: F07Z9ZZ Gait Training/Functional Ambulation Treatment (ICD-10-PCS; 2017-08-01)
PROC: F07Z8ZZ Transfer Training Treatment (ICD-10-PCS; 2017-08-01)
PROC: F08Z0ZZ Bathing/Showering Techniques Treatment (ICD-10-PCS; 2017-08-01)
PROC: F08Z1ZZ Dressing Techniques Treatment (ICD-10-PCS; 2017-08-01)
PROC: F08Z3ZZ Feeding/Eating Treatment (ICD-10-PCS; 2017-08-01)
DX: S32.19XD Other fracture of sacrum, subsequent encounter for fracture with routine healing (principal); J18.9 Pneumonia, unspecified organism; G62.9 Polyneuropathy, unspecified; K51.90 Ulcerative colitis, unspecified, without complications; N39.0 Urinary tract infection, site not specified; I48.91 Unspecified atrial fibrillation; A31.1 Cutaneous mycobacterial infection; S42.122D Displaced fracture of acromial process, left shoulder, subsequent encounter for fracture with routine healing; B96.1 Klebsiella pneumoniae [K. pneumoniae] as the cause of diseases classified elsewhere; S32.592D Other specified fracture of left pubis, subsequent encounter for fracture with routine healing; W18.30XD Fall on same level, unspecified, subsequent encounter; Z79.01 Long term (current) use of anticoagulants; Y95 Nosocomial condition; Z79.52 Long term (current) use of systemic steroids; Z79.899 Other long term (current) drug therapy; Z88.2 Allergy status to sulfonamides; G25.2 Other specified forms of tremor; Z82.3 Family history of stroke; Z80.8 Family history of malignant neoplasm of other organs or systems; Z87.891 Personal history of nicotine dependence
CPT/HCPCS: 36415; 71020; 80048; 80053; 81003; 81015; 83605; 84145; 85025; 85060; 86140; 87040; 87077; 87086; 87186; A9270-GY; J0692; J3370; J7512